=== PATIENT | female | born 1965 | race Two or more races ===

== ENCOUNTER 2020-08-22 10:59 | Outpatient (REF) | payer MEDICAID, SELFPAY | END 2020-08-22 11:00 | disposition home or self-care (01) | LOC: HO.LAB 10:59 | PROVIDERS: PCP Internal Medicine; Visit Provider Internal Medicine | DX: Z20.828 Contact with and (suspected) exposure to other viral communicable diseases (principal) | CPT/HCPCS: C9803; U0003 ==

== ENCOUNTER 2020-09-16 13:37 | Emergency (ER) | payer MEDICAID, SELFPAY ==
[2020-09-16 13:44] VITALS: BP 138/83; PULSE 73; RESP 16; TEMP 35.7; O2SAT 97; BMI 41.1
--- NOTE | 2020-09-16 14:06 | ED.DENTAL ---
HPI - Dental/Oral General Chief complaint: Dental/Oral Stated complaint: Dental pain Time Seen by Provider: 09/16/20 14:06 Source: patient History of Present Illness HPI Narrative: Patient complains of left lower molar pain for 3 days which is radiating to the left ear the pain is moderate, no prior treatment, no fever no chills no difficulty swallowing no swelling under the tongue Related Data Previous Rx's Medication Instructions Recorded amoxicillin 500 mg PO Q8H 7 Days #21 cap 09/16/20 ibuprofen 600 mg PO Q6H PRN #20 tab 09/16/20 oxycodone-acetaminophen [Percocet] 1 tab PO Q6H PRN #14 tab 09/16/20 Allergies Allergy/AdvReac Type Severity Reaction Status Date / Time penicillin V Allergy Unknown shortness Verified 01/18/20 00:00 of breath tuberculin, purified protein Allergy Unknown RED, RASH Unverified 06/22/20 16:44 deriva [TUBERCULIN,PURIF.PROT.DERIV.] Review of Systems Review of Systems: Positive for left dental pain and a left ear pain There is no fever no chills no dizziness no weakness no difficulty breathing or swallowing no rash Yes all other systems are reviewed and are negative PMFSH Past Medical History Source: nursing notes reviewed Medical History (Updated 09/16/20 @ 14:53 by NATHALIA Schaefer) Anemia Hypertension Social History Social History Advance Directives: No Advance Directives Information Provided: No Physical Exam Vital Signs: Vital Signs: Last Vital Signs Temp 96.2 F L 09/16/20 13:44 Pulse 73 09/16/20 13:44 Resp 16 09/16/20 13:44 BP 138/83 09/16/20 13:44 Pulse Ox 97 09/16/20 13:44 Body Mass Index 41.1 General appearance comfortable no distress A&O x3 The left ear is normal in appearance with no redness of tympanic membrane no narrowing of the canal no pain on movement of the ear, no sign of an ear infection The pharynx is clear no redness or swelling The left rear lower molar is decayed and tender to the touch, there is no fluctuant abscess of the gum there is no swelling under the tongue there is no impairment of breathing or swallowing there is no facial swelling there is no redness to the skin, voices normal Respiratory no distress skin no rash Neuro no focal deficit Course Course Course Narrative: Patient has no difficulty breathing or swallowing, computer said penicillin allergy but the patient denies any penicillin allergy and she is says she has had it before with no bad effect Discharge Plan Discharge Clinical Impression: Dental caries Patient Disposition: Home, Self-Care Additional Instructions: Follow as scheduled with her dentist in 2 weeks, you can call for an earlier appointment Return to ER any time if worse Prescriptions: New oxycodone-acetaminophen [Percocet] 5-325 mg tablet 1 tab PO Q6H PRN (Reason: pain) Qty: 14 RF: 0 ibuprofen 600 mg tablet 600 mg PO Q6H PRN (Reason: pain) Qty: 20 RF: 0 amoxicillin 500 mg capsule 500 mg PO Q8H 7 Days Qty: 21 RF: 0
[2020-09-16] MEDS: Amoxicillin 500 MG CAPSULE PO (14:54)
[2020-09-16] MEDS: Ibuprofen 600 MG TABLET PO (14:54)
== END 2020-09-16 15:13 | disposition home or self-care (01) ==
PROVIDERS: Emergency Provider Emergency Medicine; PCP Internal Medicine
DX: K02.9 Dental caries, unspecified (principal); I10 Essential (primary) hypertension
CPT/HCPCS: 99283

== ENCOUNTER → 2020-10-30 19:16 | Outpatient (REF) | payer MEDICAID, SELFPAY | LOC: HO.SL 19:16 | PROVIDERS: Visit Provider Psychiatry & Neurology Neurology | DX: G47.33 Obstructive sleep apnea (adult) (pediatric) (principal) | CPT/HCPCS: 95810 ==

== ENCOUNTER 2020-11-10 17:50 | Outpatient (REF) | payer MEDICAID, SELFPAY | END 2020-11-10 17:51 | disposition home or self-care (01) | LOC: HO.MRI 17:50 | PROVIDERS: Visit Provider Psychiatry & Neurology Neurology | DX: Z13.89 Encounter for screening for other disorder (principal) ==

== ENCOUNTER 2021-05-09 09:39 | Emergency (ER) | payer MEDICAID, SELFPAY ==
[2021-05-09 09:41] VITALS: BP 155/76; PULSE 68; RESP 16; TEMP 36.5; O2SAT 99; BMI 39.4
[2021-05-09 10:00] VITALS: BP 148/80; PULSE 65; RESP 18; O2SAT 100
[2021-05-09 10:21] LABS: Glucose Urine UA NEG (NEG); Leukocyte Esterase Urine 2+ (NEG); Nitrite Urine POS (NEG); PH 6.5 (5.0-8.0); Specific Gravity - Urine 1.015 (1.005-1.025); Urine Blood TRACE (NEG); Urine Ketones NEG (NEG); Urine Protein NEG (NEG-TRACE)
[2021-05-09 10:23] LABS: Appearance Urine HAZY; Color Urine YELLOW
--- NOTE | 2021-05-09 10:28 | ED.ABDPAIN ---
HPI - Abdominal Pain General Chief Complaint: Abdominal Pain Stated Complaint: lower abd pain Time Seen by Provider: 05/09/21 10:25 Source: patient Mode of arrival: ambulatory Limitations: no limitations History of Present Illness HPI narrative: 56 y/o female presents to the ER from home c/o 4 days of suprapubic pain and dysuria. She reports transient hematruia 3 days ago that has since resolved. She took over the counter cranberry supplements because she thought it was a UTI but her symptoms persisted. She is nauseated but has not vomited. No fever or chills. She has low back pain, slightly worse on the left. She is eating and drinking normally. MD elicited complaint: abdominal pain Pertinent past history: none Onset (ago): day(s) (4) Pain Consistency: constant Location: suprapubic Severity: severe Quality: aching, sharp and burning Radiation: back Migration to: no migration Exacerbating factors: other (urination) Relieving factors: nothing Associated symptoms: nausea Related Data Previous Rx's Medication Instructions Recorded amoxicillin 500 mg capsule 500 mg PO Q8H 7 Days #21 cap 09/16/20 ibuprofen 600 mg tablet 600 mg PO Q6H PRN #20 tab 09/16/20 oxycodone-acetaminophen 5 mg-325 1 tab PO Q6H PRN #14 tab 09/16/20 mg tablet (Percocet) levofloxacin 750 mg tablet 750 mg PO DAILY #5 tab 05/09/21 phenazopyridine 100 mg tablet 100 mg PO TID PRN #6 tab 05/09/21 (Pyridium) Allergies Allergy/AdvReac Type Severity Reaction Status Date / Time penicillin V Allergy Unknown shortness Verified 01/18/20 00:00 of breath tuberculin, purified protein Allergy Unknown RED, RASH Unverified 06/22/20 16:44 deriva [TUBERCULIN,PURIF.PROT.DERIV.] Review of Systems Review of Systems Constitutional: No Fever, No Chills ENT/Mouth: No sore throat, No Rhinorrhea, No Swallowing Difficulty Cardiovascular: No Chest Pain, No SOB, No Orthopnea, No Edema Respiratory: No Cough, No Sputum, No Wheezing, No dyspnea Gastrointestinal: + Nausea, No Vomiting, No Diarrhea, + abdominal Pain Genitourinary: + Dysuria, + Urinary Frequency, + Hematuria Musculoskeletal: No joint pain, No Myalgias Skin: No Skin Lesions, No rash Neuro: No Weakness, No Numbness, No Dizziness, No Headache Psych: No Anxiety/Panic, No Depression Heme/Lymph: No Bruising, No Lymphadenopathy Endocrine: No Polyuria, No Polydipsia Physical Exam Vital Signs: Vital Signs: Last Vital Signs Temp 97.7 F 05/09/21 09:41 Pulse 57 05/09/21 11:16 Resp 16 05/09/21 11:16 BP 114/53 L 05/09/21 11:16 Pulse Ox 100 05/09/21 11:16 Body Mass Index 39.4 Appearance: Alert. Oriented X3. No acute distress. Eyes: Pupils equal, round and reactive to light. ENT: Pharynx normal. Neck: Normal inspection. Neck supple. CVS: Normal heart rate and rhythm. Pulses normal. Respiratory: No respiratory distress. Breath sounds normal. Abdomen: Soft with suprapubic tenderness, no rebound or guarding. +BS x4 Skin: Skin warm and dry. Normal skin color. Normal skin turgor. No rashes. Extremities: No lower extremity edema. Neuro: Oriented X 3. No motor deficit. No sensory deficit. Course Course Course Narrative: 56 yo female presenting with 4 days of suprapubic pain, dysuria and back pain. UA is consistent with infection. Vitals are stable, no fever. Not septic at this time. Will get basic labs to check renal function. IV levaquin ordered (allergy to PCN). Reevaluation(s) Reevaluation #1: No leukocytosis on lab workup. Renal function is normal. She is not vomiting and afebrile. She is stable for discharge home with PO abx and outpatient follow up. Patient agrees with plan. MDM - Abdominal Pain Lab Data Result diagrams: 05/09/21 11:02 05/09/21 11:02 Labs: Lab Results 05/09/21 05/09/21 05/09/21 Range/Units 10:01 11:02 11:02 WBC 5.9 (4.8-10.8) X10*3/uL RBC 4.53 (4.20-5.50) X10*6/uL Hgb 12.6 (12.0-16.0) g/dl Hct 39.6 (37-47) % MCV 87.4 (80-98) fL MCH 27.8 (27.0-33.0) pg MCHC 31.8 (31.0-35.0) g/dl RDW 13.2 (11.0-16.0) % Plt Count 177 (160-400) X10*3/uL MPV 10.4 (9.4-12.3) fL Immature Gran % (Auto) 0.5 H (0.0-0.4) % Neut % (Auto) 63.6 (45-73) % Lymph % (Auto) 27.0 (20-40) % [place] % (Auto) 6.7 (2-11) % Eos % (Auto) 1.7 (0-4) % Baso % (Auto) 0.5 (0-2) % Lymph # (Auto) 1.6 (1.2-4.9) X10*3/uL [place] # (Auto) 0.4 (0.1-1.2) X10*3/uL Eos # (Auto) 0.1 (0.0-0.4) X10*3/uL Baso # (Auto) 0.0 (0.0-0.2) X10*3/uL Abs Immat Gran (auto) 0.03 (0.00-0.03) X10*3/uL Absolute Neuts (auto) 3.7 (2.0-8.3) X10*3/uL Absolute Nucleated RBC 0.000 (0.0-0.012) X10*3/uL Nucleated RBC % (auto) 0.0 (0.0-0.2) /100WBC Sodium 139 (135-145) mmol/L Potassium 4.0 (3.3-5.1) mmol/L Chloride 103 (96-108) mmol/L Carbon Dioxide 28 (22-29) mmol/L Anion Gap 12 (12-20) BUN 14 (9-16) mg/dL Creatinine 0.77 (0.5-1.4) mg/dL Estim Creat Clear Calc 97.1 Estimated GFR > 60 Random Glucose 200 H (60-115) mg/dL Calcium 9.1 (8.4-10.2) mg/dL Urine Color YELLOW Urine Appearance HAZY Urine pH 6.5 (5.0-8.0) Ur Specific [place] 1.015 (1.005-1.025) Urine Protein NEG (NEG-TRACE) MG/DL Urine Glucose (UA) NEG (NEG) MG/DL Urine Ketones NEG (NEG) MG/DL Urine Blood TRACE (NEG) Urine Nitrite POS H (NEG) Ur Leukocyte Esterase 2+ H (NEG) Urine RBC 1-4 (0) /HPF Urine WBC 50-75 H (0-4) /HPF Ur Squamous Epith Cells 3+ /LPF Urine Bacteria 2+ /LPF Discharge Plan Discharge Clinical Impression: UTI (urinary tract infection) Qualifiers: Urinary tract infection type: acute cystitis Hematuria presence: with hematuria Qualified Code(s): N30.01 - Acute cystitis with hematuria Patient Disposition: Home, Self-Care Instructions: Urinary Tract Infection in Women (ED) Additional Instructions: Take the prescribed antibiotic for urinary tract infection. Take 1st dose tomorrow morning, you were given a dose in the ER today. Drink plenty of fluids. Take Motrin and/or Tylenol as needed for pain. Take the prescribed medication as needed for bladder pain. This can turn your urine orange which is a normal side effect. Follow up with your doctor in 1 week. If you develop new or worsening symptoms call 911 or come back to the ER for further evaluation. Prescriptions: New levofloxacin 750 mg tablet 750 mg PO DAILY Qty: 5 RF: 0 phenazopyridine [Pyridium] 100 mg tablet 100 mg PO TID PRN (Reason: pain) Qty: 6 RF: 0 No Action oxycodone-acetaminophen [Percocet] 5-325 mg tablet 1 tab PO Q6H PRN (Reason: pain) Qty: 14 RF: 0 ibuprofen 600 mg tablet 600 mg PO Q6H PRN (Reason: pain) Qty: 20 RF: 0 amoxicillin 500 mg capsule 500 mg PO Q8H 7 Days Qty: 21 RF: 0 PMFSH Past Medical History Medical History (Updated 05/09/21 @ 11:26 by NATHALIA Moreno) Anemia Hypertension Social History Social History Advance Directives: Yes Advance Directives Information Provided: Yes Advance Directives on File: No Patient : No
[2021-05-09 10:30] LABS: Bacteria Urine 2+ /LPF; Squamous Epithelial Cell Urine 3+ /LPF; WBC Urine 50-75 /HPF (0-4)
[2021-05-09] MEDS: Acetaminophen 325 MG TABLET 650 MG PO (11:08)
[2021-05-09] MEDS: levoFLOXacin/D5W 750 MG/150 ML PIGGYBACK 100 MG IV (11:09)
[2021-05-09 11:10] LABS: MANUAL DIFF FLAG NO
[2021-05-09 11:12] LABS: Basophils Percent Auto 0.5 % (0-2); Eosinophils Absolute Auto 0.1 X10*3/uL (0.0-0.4); Eosinophils Percent Auto 1.7 % (0-4); Hematocrit 39.6 % (37-47); Hemoglobin 12.6 g/dl (12.0-16.0); Imm Gran Abs Auto 0.03 X10*3/uL (0.00-0.03); Imm Gran Pct Auto 0.5 % (0.0-0.4); Lymphocytes Absolute Auto 1.6 X10*3/uL (1.2-4.9); Mean Corpuscular HGB Conc 31.8 g/dl (31.0-35.0); Mean Corpuscular Hemoglobin 27.8 pg (27.0-33.0); Mean Corpuscular Volume 87.4 fL (80-98); Mean Platelet Volume 10.4 fL (9.4-12.3); Monocytes Absolute Auto 0.4 X10*3/uL (0.1-1.2); Monocytes Percent Auto 6.7 % (2-11); Neutrophils Absolute Auto 3.7 X10*3/uL (2.0-8.3); Neutrophils Percent Auto 63.6 % (45-73); Platelet Count 177 X10*3/uL (160-400); Red Blood Count 4.53 X10*6/uL (4.20-5.50); Red Cell Distribution Width 13.2 % (11.0-16.0); White Blood Count 5.9 X10*3/uL (4.8-10.8)
[2021-05-09 11:16] VITALS: BP 114/53; PULSE 57; RESP 16; O2SAT 100
[2021-05-09] MEDS: Phenazopyridine HCL 100 MG TABLET PO (11:18)
[2021-05-09 11:55] LABS: Anion Gap 12 (12-20); Blood Urea Nitrogen 14 mg/dL (9-16); Calcium 9.1 mg/dL (8.4-10.2); Carbon Dioxide 28 mmol/L (22-29); Chloride 103 mmol/L (96-108); Creatinine Clr Calc Pharmacy 97.1; Estimated Glomerular Filt Rate > 60; Glucose Random 200 mg/dL (60-115); Sodium 139 mmol/L (135-145)
[2021-05-09] MEDS: Ketorolac Tromethamine 15 MG/ML VIAL 30 MG IVPUSH (12:07)
== END 2021-05-09 12:51 | disposition home or self-care (01) ==
PROVIDERS: Physician Assistant; Emergency Provider Emergency Medicine; PCP Internal Medicine
DX: N30.01 Acute cystitis with hematuria (principal); I10 Essential (primary) hypertension
CPT/HCPCS: 36415; 80048; 81001; 85025; 96365; 96375; 99284; 99285; J1885; J1956; J2405

== ENCOUNTER 2021-06-03 10:38 | Emergency (ER) | payer MEDICAID, SELFPAY ==
--- NOTE | ~2021-06-03 | CT_ITS ---
EXAMINATION: CT ABDOMEN AND PELVIS WITHOUT CONTRAST CLINICAL INFORMATION: 56-year-old female with flank pain. COMPARISON: Bladder ultrasound January 13, [address] abdomen pelvis November 26, 2017 TECHNIQUE: Multidetector volumetric imaging was performed from the superior aspect of the liver through the pubic symphysis. Sagittal and coronal reformatted images were obtained on the technologist's workstation. This CT examination was performed using dose optimization techniques as appropriate, variously including the following: *Automated exposure control *Adjustment of mA and/or kV according to patient size (this includes techniques or standardized protocols for targeted exams where dose is matched to indication/reason for exam; i.e. extremities or head) *Use of iterative reconstruction technique DLP: 743 mGy-cm FINDINGS: Visualized lung bases are well aerated. The liver is normal in size but demonstrates diffusely decreased attenuation. The gallbladder is surgically absent. The pancreas, spleen and adrenal glands are unremarkable. Symmetrically sized kidneys. No renal calculi or hydronephrosis of either kidney. Normal caliber loops of small and large bowel. Normal caliber abdominal aorta. Duplicated IVC. No retroperitoneal lymphadenopathy. The bladder is normal in appearance. The uterus is surgically absent. No gross free pelvic fluid. Shot[place] bilateral inguinal lymph nodes and collateral vessels are unchanged. No acute osseous abnormality. CT/CT abdomen pelvis wo con IMPRESSION: -No CT evidence for acute abnormality within the abdomen or pelvis. Specifically, no renal calculi or hydronephrosis bilaterally. -Diffusely decreased liver attenuation suggesting hepatic steatosis. Correlation with liver enzymes recommended.
[2021-06-03 10:44] VITALS: BP 124/76; PULSE 66; RESP 20; TEMP 36.4; O2SAT 98; BMI 39.4
--- NOTE | 2021-06-03 11:19 | ED_ITS ---
HPI - Female Genitourinary General Chief complaint: Urogenital-Female Stated complaint: flank pain Time Seen by Provider: 06/03/21 11:17 Source: patient and private investigator surveillance Mode of arrival: ambulatory Limitations: language barrier History of Present Illness HPI Narrative: 56-year-old female here with complaints of bilateral lower back pain for several days. Of note patient was seen here on May 09 and diagnosed with UTI. Treated with Levaquin for 5 days. Patient reports she has pain in her back when she urinates. She does not have any dysuria or urinary frequency or hematuria. No fevers or chills. She has had several episodes of vomiting throughout the week at home. Done today. No diarrhea or constipation. Patient spoke to her primary care doctor last week and has an outpatient x-ray ordered of the back which she has not completed yet. No falls or injury. Using Motrin at home with continued pain Related Data Previous Rx's Medication Instructions Recorded amoxicillin 500 mg capsule 500 mg PO Q8H 7 Days #21 cap 09/16/20 ibuprofen 600 mg tablet 600 mg PO Q6H PRN #20 tab 09/16/20 oxycodone-acetaminophen 5 mg-325 1 tab PO Q6H PRN #14 tab 09/16/20 mg tablet (Percocet) levofloxacin 750 mg tablet 750 mg PO DAILY #5 tab 05/09/21 phenazopyridine 100 mg tablet 100 mg PO TID PRN #6 tab 05/09/21 (Pyridium) cyclobenzaprine 10 mg tablet 10 mg PO TID PRN #10 tab 06/03/21 lidocaine 5 % topical patch 1 patch TOPICAL DAILY #15 ea 06/03/21 (Lidoderm) naproxen 500 mg tablet 500 mg PO BID PRN #20 tab 06/03/21 Allergies Allergy/AdvReac Type Severity Reaction Status Date / Time penicillin V Allergy Unknown shortness Verified 01/18/20 00:00 of breath tuberculin, purified protein Allergy Unknown RED, RASH Unverified 06/22/20 16:44 deriva [TUBERCULIN,PURIF.PROT.DERIV.] Review of Systems Review of Systems: Yes all other systems are reviewed and are negative Constitutional: Constitutional: Reports no additional constitutional comp laints, Denies body ache(s), Denies chills, Denies fever(s), Denies headache(s) and Denies weakness Eyes: Eyes: Reports no additional eye complaints and Denies change in vision ENT: Reports system reviewed and no additional complaints, except as documented, Denies dizziness, Denies headache(s), Denies nasal congestion, Denies nasal discharge and Denies neck pain Cardiovascular: Cardiovascular: Reports no additional cardiovascular complaints, Denies chest pain, Denies leg edema and Denies dyspnea Respiratory: Respiratory: Reports no additional respiratory complaints, Denies cough and Denies dyspnea Gastrointestinal: Gastrointestinal: Reports no additional gastrointestinal complaints, Denies abdominal pain, Denies diarrhea, Denies nausea and Denies vomiting Genitourinary: Genitourinary: Reports no additional female genitourinary complaints, Denies hematuria, Reports dysuria, Reports flank pain, Denies urinary incontinence, Denies urinary hesitancy, Denies urinary urgency and Denies vaginal discharge Musculoskeletal: Musculoskeletal: Reports no additional musculoskeletal complaints, Reports back pain, Denies arthralgias, Denies joint swelling, Denies neck pain, Denies numbness and Denies tingling Integumentary/Breasts: Skin/Breast: Reports system reviewed and no additional complaints, except as docu and Denies rash Neurologic: Reports system reviewed and no additional complaints, except as documented, Denies Abnormal speech present, Denies dizziness, Denies headache(s), Denies numbness, Denies tingling and Denies weakness PMFSH Past Medical History Attestation statement: The following information was validated with the patient. Source: old records reviewed and nursing notes reviewed Medical History Anemia Hypertension Social History Social History Advance Directives: No Advance Directives Information Provided: No Physical Exam Vital Signs: Vital Signs: Last Vital Signs Temp 98 F 06/03/21 14:03 Pulse 58 06/03/21 14:03 Resp 15 06/03/21 14:03 BP 149/78 H 06/03/21 14:03 Pulse Ox 99 06/03/21 14:03 Body Mass Index 39.4 Const: General: cooperative, healthy appearing, comfortable and no acute distress Orientation/consciousness: patient oriented x3 Limitations: no limitations HENMT: Head: Yes normal to inspection Ears: hearing grossly normal bilaterally General nose exam: Normal external nose present Face and sinus: Yes normal facial exam Mouth: Normal oral and palatal mucosa present Throat: Yes posterior oropharynx normal Eyes: General: appearance normal, both eyes and all related structures Pupils: Equal, round and reactive pupils present Neck: Neck: Yes normal visual inspection Chest: Chest palpation & inspection: normal inspection of the chest Resp: Effort & Inspection: normal respiratory effort Auscultation: clear to auscultation bilaterally Cardio: Rate: regular rate Rhythm: regular rhythm Peripheral pulses: P eripheral pulses 2+ throughout GI: Inspection: Yes normal to inspection Palpation (GI): Soft to palpation and nontender Auscultation: normal bowel sounds : General: Yes CVA tenderness Back/Spine/Pelvis: Other: Bilateral Back: CVA tenderness Thoracic/Lumbar Spine: thoracic and lumbar spine normal to inspection Skin: General skin exam: no rashes or lesions noted Neuro: General: patient oriented x3, no focal motor deficits and normal sensation to monofilament Cranial nerves: Yes Equal, round and reactive pupils present Cognition (Neuro): normal cognition Speech: No Abnormal speech present Gait exam (Neuro): Normal gait present Motor exam (neuro): 5/5 motor strength present throughout Extrem: General: Yes normal to inspection Course Course Course Narrative: 56-year-old female here with flank pain which is worsened when she urinates for the last will days. Of note patient was recently treated Levaquin for UTI 2 weeks ago. She did complete the course. On exam is bilateral CVA tenderness. No fever. Hemodynamically stable. Will check labs, UA, CT. [id number] negative for infection. Labs unremarkable. Ct shows no acute finding. Likely lumbar strain. Will send patient home with supportive measures. Revi ewed worrisome signs and symptoms and when to return to the emergency department. Comfortable discharge home. MDM - Female Genitourinary Medical Records Attestation: I reviewed the patient's medical records. Lab Data Attestation: I reviewed the patient's lab results. Result diagrams: 06/03/21 12:25 06/03/21 12:25 Labs: Lab Results 06/03/21 06/03/21 06/03/21 Range/Units 11:28 12:25 12:25 WBC 5.1 (4.8-10.8) X10*3/uL RBC 4.59 (4.20-5.50) X10*6/uL Hgb 12.8 (12.0-16.0) g/dl Hct 40.7 (37-47) % MCV 88.7 (80-98) fL MCH 27.9 (27.0-33.0) pg MCHC 31.4 (31.0-35.0) g/dl RDW 13.2 (11.0-16.0) % Plt Count 158 L (160-400) X10*3/uL MPV 10.4 (9.4-12.3) fL Immature Gran % (Auto) 0.4 (0.0-0.4) % Neut % (Auto) 60.8 (45-73) % Lymph % (Auto) 29.9 (20-40) % [place] % (Auto) 6.9 (2-11) % Eos % (Auto) 1.6 (0-4) % Baso % (Auto) 0.4 (0-2) % Lymph # (Auto) 1.5 (1.2-4.9) X10*3/uL [place] # (Auto) 0.4 (0.1-1.2) X10*3/uL Eos # (Auto) 0.1 (0.0-0.4) X10*3/uL Baso # (Auto) 0.0 (0.0-0.2) X10*3/uL Abs Immat Gran (auto) 0.02 (0.00-0.03) X10*3/uL Absolute Neuts (auto) 3.1 (2.0-8.3) X10*3/uL Absolute Nucleated RBC 0.000 (0.0-0.012) X10*3/uL Nucleated RBC % (auto) 0.0 (0.0-0.2) /100WBC Sodium 141 (135-145) mmol/L Potassium 3.9 (3.3-5.1) mmol/L Chloride 103 (96-108) mmol/L Carbon Dioxide 31 H (22-29) mmol/L Anion Gap 11 L (12-20) BUN 14 (9-16) mg/dL Creatinine 0.85 (0.5-1.4) mg/dL Estim Creat Clear Calc 88.0 Estimated GFR > 60 Random Glucose 178 H (60-115) mg/dL Calcium 9.1 (8.4-10.2) mg/dL Total Bilirubin 0.3 (0.0-1.0) mg/dL Direct Bilirubin 0.2 (0.0-0.5) mg/dL AST 18 (5-31) U/L ALT 27 (0-31) U/L Alkaline Phosphatase 100 (39-117) U/L Total Protein 7.0 (6.5-8.0) g/dL Albumin 4.1 (3.5-5.0) g/dL Urine Color YELLOW Urine Appearance CLEAR Urine pH 6.0 (5.0-8.0) Ur Specific [place] 1.025 (1.005-1.025) Urine Protein NEG (NEG-TRACE) MG/DL Urine Glucose (UA) NEG (NEG) MG/DL Urine Ketones NEG (NEG) MG/DL Urine Blood TRACE (NEG) Urine Nitrite NEG (NEG) Ur Leukocyte Esterase NEG (NEG) Urine RBC 0-2 (0) /HPF Urine WBC 0-2 (0-4) /HPF Ur Squamous Epith Cells TRACE /LPF Urine Bacteria TRACE /LPF Urine Mucus TRACE /LPF Imaging Data CT scan - abdomen: Attestation: I personally reviewed and interpreted this imaging study as follows: Radiologist's impression: FINDINGS: Visualized lung bases are well aerated. The liver is normal in size but demonstrates diffusely decreased attenuation. The gallbladder is surgically absent. The pancreas, spleen and adrenal glands are unremarkable. Symmetrically sized kidneys. No renal calculi or hydronephrosis of either kidney. Normal caliber loops of small and large bowel. Normal caliber abdominal aorta. Duplicated IVC. No retroperitoneal lymphadenopathy. The bladder is normal in appearance. The uterus is surgically absent. No gross free pelvic fluid. Shotty bilateral inguinal lymph nodes and collateral vessels are unchanged. No acute osseous abnormality. CT/CT abdomen pelvis wo con IMPRESSION: -No CT evidence for acute abnormality within the abdomen or pelvis. Specifically, no renal calculi or hydronephrosis bilaterally. -Diffusely decreased liver attenuation suggesting hepatic steatosis. Correlation with liver enzymes recommended. Discharge Plan Discharge Clinical Impression: Lumbar strain Patient Disposition: Home, Self-Care Instructions: Low Back Strain (ED), Lower Back Exercises (ED), Core Strengthening Exercises (ED) Additional Instructions: Heat or ice Gentle stretching Your imaging looks normal. Your labs and urine are negative Follow-up with your primary care doctor as needed Increase fluids, rest No heavy lifting or bending Prescriptions: New cyclobenzaprine 10 mg tablet 10 mg PO TID PRN (Reason: muscle spasm) Qty: 10 RF: 0 lidocaine [Lidoderm] 5 % adhesive patch,medicated 1 patch topical DAILY Qty: 15 RF: 0 naproxen 500 mg tablet 500 mg PO BID PRN (Reason: pain) Qty: 20 RF: 0 No Action oxycodone-acetaminophen [Percocet] 5-325 mg tablet 1 tab PO Q6H PRN (Reason: pain) Qty: 14 RF: 0 ibuprofen 600 mg tablet 600 mg PO Q6H PRN (Reason: pain) Qty: 20 RF: 0 amoxicillin 500 mg capsule 500 mg PO Q8H 7 Days Qty: 21 RF: 0 levofloxacin 750 mg tablet 750 mg PO DAILY Qty: 5 RF: 0 phenazopyridine [Pyridium] 100 mg tablet 100 mg PO TID PRN (Reason: pain) Qty: 6 RF: 0 Referrals: Choco Shaikh MD [Primary Care Provider] - 2 days Interventions: ED Discharge Assessment Last Done: 06/03/21 14:18 Discharge Date/Time: 06/03/21 14:19 Print Language: Algerian
[2021-06-03 11:38] LABS: Glucose Urine UA NEG (NEG); Leukocyte Esterase Urine NEG (NEG); Nitrite Urine NEG (NEG); Specific Gravity - Urine 1.025 (1.005-1.025); UACC Culture Trigger NO; Urine Blood TRACE (NEG); Urine Ketones NEG (NEG); Urine Protein NEG (NEG-TRACE)
[2021-06-03 11:58] LABS: Appearance Urine CLEAR; Color Urine YELLOW
[2021-06-03 12:02] LABS: Bacteria Urine TRACE /LPF; Mucus Urine TRACE /LPF; RBC Urine 0-2 /HPF (0); Squamous Epithelial Cell Urine TRACE /LPF; WBC Urine 0-2 /HPF (0-4)
[2021-06-03 12:31] LABS: MANUAL DIFF FLAG NO
[2021-06-03 12:32] LABS: Basophils Percent Auto 0.4 % (0-2); Eosinophils Absolute Auto 0.1 X10*3/uL (0.0-0.4); Eosinophils Percent Auto 1.6 % (0-4); Hematocrit 40.7 % (37-47); Hemoglobin 12.8 g/dl (12.0-16.0); Imm Gran Abs Auto 0.02 X10*3/uL (0.00-0.03); Imm Gran Pct Auto 0.4 % (0.0-0.4); Lymphocytes Absolute Auto 1.5 X10*3/uL (1.2-4.9); Lymphocytes Percent Auto 29.9 % (20-40); Mean Corpuscular HGB Conc 31.4 g/dl (31.0-35.0); Mean Corpuscular Hemoglobin 27.9 pg (27.0-33.0); Mean Corpuscular Volume 88.7 fL (80-98); Mean Platelet Volume 10.4 fL (9.4-12.3); Monocytes Absolute Auto 0.4 X10*3/uL (0.1-1.2); Monocytes Percent Auto 6.9 % (2-11); Neutrophils Absolute Auto 3.1 X10*3/uL (2.0-8.3); Neutrophils Percent Auto 60.8 % (45-73); Platelet Count 158 X10*3/uL (160-400); Red Blood Count 4.59 X10*6/uL (4.20-5.50); Red Cell Distribution Width 13.2 % (11.0-16.0); White Blood Count 5.1 X10*3/uL (4.8-10.8)
[2021-06-03 12:58] LABS: Alanine Aminotransferase 27 U/L (0-31); Albumin Level 4.1 g/dL (3.5-5.0); Alkaline Phosphatase 100 U/L (39-117); Anion Gap 11 (12-20); Aspartate Amino Transferase 18 U/L (5-31); Bilirubin Direct 0.2 mg/dL (0.0-0.5); Bilirubin Total 0.3 mg/dL (0.0-1.0); Blood Urea Nitrogen 14 mg/dL (9-16); Calcium 9.1 mg/dL (8.4-10.2); Carbon Dioxide 31 mmol/L (22-29); Chloride 103 mmol/L (96-108); Estimated Glomerular Filt Rate > 60; Glucose Random 178 mg/dL (60-115); Potassium 3.9 mmol/L (3.3-5.1); Sodium 141 mmol/L (135-145)
[2021-06-03 14:03] VITALS: BP 149/78; PULSE 58; RESP 15; TEMP 36.6; O2SAT 99
== END 2021-06-03 14:19 | disposition home or self-care (01) ==
PROVIDERS: Nurse Practitioner Family; Emergency Provider Emergency Medicine; PCP Internal Medicine
DX: M54.5 Low back pain (principal); R10.9 Unspecified abdominal pain; R11.10 Vomiting, unspecified; Z79.899 Other long term (current) drug therapy
CPT/HCPCS: 36415; 74176; 80048; 80076; 81001; 85025; 99284

== ENCOUNTER 2021-09-20 20:57 | Emergency (ER) | payer MEDICAID, SELFPAY ==
[2021-09-20 21:12] VITALS: BP 155/80; PULSE 65; RESP 18; TEMP 36.7; O2SAT 100; BMI 39.4
[2021-09-20 21:43] LABS: COVID-19 Test Positive (Negative); IDNOW Serial# 16C4AD1C
[2021-09-21 02:24] VITALS: BP 174/89; PULSE 69; RESP 16; TEMP 36.8; O2SAT 100
[2021-09-21 04:25] VITALS: BP 154/93; PULSE 66; RESP 14; TEMP 36.7; O2SAT 100
--- NOTE | 2021-09-21 05:34 | ED_ITS ---
HPI - URI/Sore Throat General Chief Complaint: Upper Respiratory Symptoms Stated Complaint: cough,fever Time Seen by Provider: 09/21/21 05:13 Source: patient Mode of arrival: ambulatory Limitations: no limitations History of Present Illness HPI Narrative: 56-year-old female who presents emergency department for evaluation of cough, fever, chest pain, body aches, headache and shortness of breath. Patient states that 2 students on Friday and 2 students on Friday (2 days prior to evaluation) tested positive for COVID-19. She states that a co- worker tested positive for COVID-19 yesterday. She states that on the day of arrival she developed cough, body aches, headaches, chest tightness and diarrhea. She denied shortness of breath or dyspnea on exertion. She states that she has had subjective fevers. She was concerned that she had COVID-19 therefore she came to the emergency department for evaluation. The patient received 2 shots of the Moderna vaccine with her 2nd vaccination on 12/21/2020. She did not receive a booster vaccination. Related Data Previous Rx's Medication Instructions Recorded amoxicillin 500 mg capsule 500 mg PO Q8H 7 Days #21 cap 09/16/20 ibuprofen 600 mg tablet 600 mg PO Q6H PRN #20 tab 09/16/20 oxycodone-acetaminophen 5 mg-325 1 tab PO Q6H PRN #14 tab 09/16/20 mg tablet (Percocet) levofloxacin 750 mg tablet 750 mg PO DAILY #5 tab 05/09/21 phenazopyridine 100 mg tablet 100 mg PO TID PRN #6 tab 05/09/21 (Pyridium) cyclobenzaprine 10 mg tablet 10 mg PO TID PRN #10 tab 06/03/21 lidocaine 5 % topical patch 1 patch TOPICAL DAILY #15 ea 06/03/21 (Lidoderm) naproxen 500 mg tablet 500 mg PO BID PRN #20 tab 06/03/21 Allergies Allergy/AdvReac Type Severity Reaction Status Date / Time penicillin V Allergy Unknown shortness Verified 09/21/21 02:49 of breath tuberculin, purified protein Allergy Unknown RED, RASH Verified 09/21/21 02:49 deriva [TUBERCULIN,PURIF.PROT.DERIV.] Review of Systems Review of Systems: Yes all other systems are reviewed and are negative Neurologic: Reports Abnormal speech present [facility] Past Medical History [facility] Narrative: Past medical history: Diabetes mellitus, hypertension, fast heart rate. Past surgical history: Hysterectomy. 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 She denies tobacco, alcohol and drug use. Medical History Anemia Hypertension Social History Social History Advance Directives: No Advance Directives Information Provided: No Physical Exam Vital Signs: Vital Signs: Last Vital Signs Temp 98.1 F 09/21/21 04:25 Pulse 66 09/21/21 04:25 Resp 14 09/21/21 04:25 BP 154/93 H 09/21/21 04:25 Pulse Ox 100 09/21/21 04:25 BMI result Body Mass Index 39.4 Const: General: cooperative, no acute distress, well developed, alert and awake Orientation/consciousness: oriented to person HENMT: Head: Yes normal to inspection, Yes normocephalic and Yes atraumatic Ears: hearing grossly normal bilaterally General nose exam: Normal external nose present Face and sinus: Yes normal facial exam Mouth: Normal oral and palatal mucosa present, lip normal, tongue normal, oropharynx normal and moist mucous membranes Throat: Yes posterior oropharynx normal, Yes tonsils normal and Yes uvula midline Eyes: General: appearance normal, both eyes and all related structures Eyelids: Yes eyelids normal Conjunctivae: conjunctivae normal Sclerae: scl erae normal Corneas: corneas normal Pupils: Equal, round and reactive pupils present Neck: Neck: Yes normal visual inspection, Yes no lymphadenopathy, Yes trachea midline and Yes supple Thyroid: Thyroid normal Lymphatic: no lymphadenopathy noted Chest: Chest palpation & inspection: normal inspection of the chest and normal palpation of entire chest wall Resp: Effort & Inspection: normal respiratory effort and able to speak in complete sentences Auscultation: clear to auscultation bilaterally Cardio: Rate: regular rate Rhythm: regular rhythm Heart sounds: S1 normal heart sound present, S2 normal heart sound present and no murmurs GI: Inspection: Yes normal to inspection Palpation (GI): Soft to palpation, nontender and No hepatosplenomegaly present Auscultation: normal bowel sounds : General: Yes no CVA tenderness Back/Spine/Pelvis: Back: no CVA tenderness Thoracic/Lumbar Spine: thoracic and lumbar spine normal to inspection Skin: General skin exam: no rashes or lesions noted, no erythema and no jaundice Lesions: no lesions Rashes: no rashes Trauma: no lacerations or abrasions Wounds: no wounds Neuro: General: oriented to person, moves all extremities and no focal motor deficits Cranial nerves: Yes Equal, round and reactive pupils present Cognition (Neuro): normal cognition Speech: Abnormal speech present Motor exam (neuro): Motor abnormalities not present Extrem: General: Yes normal to inspection, Yes no pedal edema and Yes no calf tenderness Right upper extremity: normal to inspection Left upper extremity: normal to inspection Right lower extremity: normal to inspection Left lower extremity: normal to inspection Psych: Appearance: grossly normal Mental Status: mental status grossly normal Speech and movement: Normal speech and movement present Affect: normal affect Attitude: cooperative Thought process: Normal thought process present Insight: Good insight present (Psych) Course Course Course Narrative: 56-year-old female who had multiple exposures to COVID 19 positive individuals at her workplace over the past 2-3 days who presents emergency department with 1 day upper respiratory viral-like symptoms. The patient's vital signs revealed elevated blood pressure of 155/80 with an O2 saturation of 100% on room air. Physical examination was unremarkable. Patient's COVID-19 test was positive. I did discuss COVID-19 infection with the patient. The patient has multiple comorbid conditions such as obesity, diabetes and hypertension which may cared increased risk for morbidity and mortality therefore she was referred to the [facility] infusion clinic for treatment with monoclonal antibodies. I did discuss COVID-19 infections, pneumonia and isolation with the patient . The patient was given printed and verbal instructions and discharged home. MDM - URI/Sore Throat Lab Data Labs: Lab Results 09/20/21 Range/Units 21:00 COVID-19 (NATHAN) Positive A (Negative) COVID-19 Clin Com See Note Discharge Plan Discharge Clinical Impression: COVID-19 Patient Disposition: Home, Self-Care Instructions: COVID-19 (Coronavirus Disease 2019) (ED) Additional Instructions: Your COVID-19 test is positive Your O2 saturation on room air was 100%. This is reassuring. We do not hospitalize people for COVID-19 and unless you developed pneumonia and your O2 saturation is less than 88% on room air. You may benefit from monoclonal antibody infusion treatment. I am referring you to the [facility] mobile infusion clinic. I emailed the form to the clinic. You should call them today to make an appointment within 1-4 days to get the infusion therapy. You need to stay home and isolate for 14 days. You should go to the [facility] website and look up information on staying home and isolating from your family members. Take ibuprofen 200 mg pills, 3 pills every 6 hours as needed for pain or fever Take Tylenol (acetaminophen) 500 mg pills, 2 pills every 4 to 6 hours as needed for pain or fever. Please return to the emergency department if you develops symptoms of pneumonia or if your symptoms are getting worse and your concerned in any way. Please see the work note. Prescriptions: No Action oxycodone-acetaminophen [Percocet] 5-325 mg tablet 1 tab PO Q6H PRN (Reason: pain) Qty: 14 RF: 0 ibuprofen 600 mg tablet 600 mg PO Q6H PRN (Reason: pain) Qty: 20 RF: 0 amoxicillin 500 mg capsule 500 mg PO Q8H 7 Days Qty: 21 RF: 0 levofloxacin 750 mg tablet 750 mg PO DAILY Qty: 5 RF: 0 phenazopyridine [Pyridium] 100 mg tablet 100 mg PO TID PRN (Reason: pain) Qty: 6 RF: 0 cyclobenzaprine 10 mg tablet 10 mg PO TID PRN (Reason: muscle spasm) Qty: 10 RF: 0 lidocaine [Lidoderm] 5 % adhesive patch,medicated 1 patch topical DAILY Qty: 15 RF: 0 naproxen 500 mg tablet 500 mg PO BID PRN (Reason: pain) Qty: 20 RF: 0 Stand Alone Forms: Work/School Release
[2021-09-21 05:43] VITALS: BP 170/94; PULSE 77; RESP 18; TEMP 37; O2SAT 100
== END 2021-09-21 05:54 | disposition home or self-care (01) ==
PROVIDERS: Emergency Provider Emergency Medicine Emergency Medical Services
DX: U07.1 COVID-19 (principal); R50.9 Fever, unspecified; R05.9 Cough, unspecified; M79.10 Myalgia, unspecified site; Z79.899 Other long term (current) drug therapy
CPT/HCPCS: 36415; 87635; 99283; 99284

== ENCOUNTER 2021-10-01 12:00 | Outpatient (REF) | payer MEDICAID, SELFPAY | END 2021-10-01 12:01 | disposition home or self-care (01) | LOC: HO.LAB 12:00 | PROVIDERS: Visit Provider Internal Medicine | DX: Z20.822 Contact with and (suspected) exposure to COVID-19 (principal) | CPT/HCPCS: C9803; U0003; U0005 ==

== ENCOUNTER 2021-12-16 10:47 | Emergency (ER) | payer MEDICAID, SELFPAY ==
--- NOTE | ~2021-12-16 | XR_ITS ---
EXAMINATION: XR CHEST CLINICAL INFORMATION: Cough. COMPARISON: Chest radiograph 05/03/2019. TECHNIQUE: Frontal view of the chest was obtained. FINDINGS: Normal appearance of the cardiomediastinal structures. No effusions or pneumothoraces. No pulmonary consolidation is normal pattern of pulmonary vasculature. Cholecystectomy clips noted. XR/XR chest 1V IMPRESSION: *No acute cardiopulmonary abnormalities. Lungs clear.
[2021-12-16 10:57] VITALS: BP 152/61; PULSE 77; RESP 18; TEMP 36.6; O2SAT 99; BMI 41.1
[2021-12-16 11:44] LABS: Influenza A Negative (Negative); Influenza B2 Negative (Negative)
[2021-12-16 11:44] LABS: COVID-19 Test Negative (Negative); IDNOW Serial# 16C4AD1C
--- NOTE | 2021-12-16 11:59 | ED.URI ---
HPI - URI/Sore Throat General Chief Complaint: Upper Respiratory Symptoms Stated Complaint: body aches/flu like symptoms Time Seen by Provider: 12/16/21 11:03 Source: patient Mode of arrival: ambulatory History of Present Illness HPI Narrative: 56-year-old female with a past medical history of anemia, hypertension, presenting to the ED complaining of fever, dry cough, ear pain, sore throat, myalgias x5 days. Denies SOB, CP, abdominal pain, pedal edema/calf tenderness, known sick contacts, recent travel MD elicited complaint: fever, cough, sore throat, rhinorrhea and nasal congestion Onset (ago): day(s) Related Data Previous Rx's Medication Instructions Recorded amoxicillin 500 mg capsule 500 mg PO Q8H 7 Days #21 cap 09/16/20 ibuprofen 600 mg tablet 600 mg PO Q6H PRN #20 tab 09/16/20 oxycodone-acetaminophen 5 mg-325 1 tab PO Q6H PRN #14 tab 09/16/20 mg tablet (Percocet) levofloxacin 750 mg tablet 750 mg PO DAILY #5 tab 05/09/21 phenazopyridine 100 mg tablet 100 mg PO TID PRN #6 tab 05/09/21 (Pyridium) cyclobenzaprine 10 mg tablet 10 mg PO TID PRN #10 tab 06/03/21 lidocaine 5 % topical patch 1 patch TOPICAL DAILY #15 ea 06/03/21 (Lidoderm) naproxen 500 mg tablet 500 mg PO BID PRN #20 tab 06/03/21 Allergies Allergy/AdvReac Type Severity Reaction Status Date / Time penicillin V Allergy Unknown shortness Verified 09/21/21 02:49 of breath tuberculin, purified protein Allergy Unknown RED, RASH Verified 09/21/21 02:49 deriva [TUBERCULIN,PURIF.PROT.DERIV.] Review of Systems Review of Systems: Constitutional: + Fever, No Chills ENT/Mouth: + Ear Pain, + Nasal Congestion, No Sinus Pain, No Hoarseness, + sore throat, + Rhinorrhea, No Swallowing Difficulty Cardiovascular: No Chest Pain, No SOB Respiratory: + Cough, No Sputum, No Wheezing Gastrointestinal: No Nausea, No Vomiting, No Abdominal pain Genitourinary:, No Dysuria, No Hematuria, No Urgency, No Flank Pain Musculoskeletal: No joint pain, No Myalgias Skin: No Skin Lesions, No rash Neuro: No Weakness, No Numbness Yes all other systems are reviewed and are negative [facility] Past Medical History Attestation statement: The following information was validated with the patient. Medical History Anemia Hypertension Social History Social History Advance Directives: No Physical Exam Vital Signs: Vital Signs: Last Vital Signs Temp 97.9 F 12/16/21 10:57 Pulse 77 12/16/21 10:57 Resp 18 12/16/21 10:57 BP 152/61 H 12/16/21 10:57 Pulse Ox 99 12/16/21 10:57 BMI result Body Mass Index 41.1 Const: General: cooperative, healthy appearing, no acute distress, alert and awake Orientation/consciousness: patient oriented x3 Limitations: no limitations HENMT: Head: Yes normal to inspection and Yes atraumatic Ears: hearing grossly normal bilaterally, external ears normal, TM's normal bilaterally and mastoids normal General nose exam: Normal external nose present Face and sinus: Yes normal facial exam Mouth: Normal oral and palatal mucosa present Throat: Yes posterior oropharynx normal, Yes tonsils normal, Yes uvula midline, No peritonsillar mass and No uvula laterally displaced Eyes: General: appearance normal, both eyes and all related structures EOM: EOMs intact bilaterally Neck: Neck: Yes normal visual inspection, Yes no lymphadenopathy and Yes no meningeal signs Resp: Effort & Inspection: normal respiratory effort and no respiratory distress Auscultation: clear to auscultation bilaterally, no rales, no rhonchi and no wheezes Cardio: Rate: regular rate Heart sounds: S1 normal heart sound present and S2 normal heart sound present : General: Yes no CVA tenderness Back/Spine/Pelvis: Back: no CVA tenderness Skin: Rashes: no rashes Wounds: no wounds Neuro: General: patient oriented x3 and no meningeal signs Gait exam (Neuro): Normal gait present Extrem: General: Yes normal to inspection, Yes no pedal edema and Yes no calf tenderness Course Course Course Narrative: -influenza and COVID-19 negative. 1212--XR chest 1V IMPRESSION: *No acute cardiopulmonary abnormalities. Lungs clear. ? > results discussed with patient including worrisome signs and symptoms and strict return precautions and needed close follow-up with PCP MDM - URI/Sore Throat MDM Narrative Medical decision making narrative: 56-year-old female with a past medical history of anemia, hypertension, presenting to the ED complaining of fever, dry cough, ear pain, sore throat, myalgias x5 days. On exam vital signs stable, NAD/nontoxic appearing, concern for viral syndrome/COVID-19/influenza. Lower concern for pneumonia. Unlikely ACS/PE Plan: COVID-19 testing, influenza testing, CXR Medical Records Attestation: I reviewed the patient's medical records. Lab Data Attestation: I reviewed the patient's lab results. Labs: Lab Results 12/16/21 12/16/21 Range/Units 11:17 11:18 COVID-19 (NATHAN) Negative (Negative) COVID-19 Clin Com See Note Influenza Type A (DEEPA) Negative (Negative) Influenza Type B (DEEPA) Negative (Negative) Influenza A & B Note See Note Discharge Plan Discharge Clinical Impression: Upper respiratory infection Patient Disposition: Home, Self-Care Instructions: Upper Respiratory Infection (DC) Additional Instructions: You tested negative for COVID-19 and the flu your chest x-ray was unremarkable Rest, stay hydrated Take Tylenol and Motrin as needed If symptoms persist or worsen, he developed fever unresolved medications have shortness of breath or chest pain please return to the emergency department Please follow-up with your doctor Prescriptions: No Action oxycodone-acetaminophen [Percocet] 5-325 mg tablet 1 tab PO Q6H PRN (Reason: pain) Qty: 14 0RF Rx Instructions: Narcotic, no driving for 6 hours after taking this medication, may cause drowsiness ibuprofen 600 mg tablet 600 mg PO Q6H PRN (Reason: pain) Qty: 20 0RF amoxicillin 500 mg capsule 500 mg PO Q8H 7 Days Qty: 21 0RF levofloxacin 750 mg tablet 750 mg PO DAILY Qty: 5 0RF phenazopyridine [Pyridium] 100 mg tablet 100 mg PO TID PRN (Reason: pain) Qty: 6 0RF cyclobenzaprine 10 mg tablet 10 mg PO TID PRN (Reason: muscle spasm) Qty: 10 0RF lidocaine [Lidoderm] 5 % adhesive patch,medicated 1 patch topical DAILY Qty: 15 0RF Rx Instructions: leave on most painful area for up to 12 hrs naproxen 500 mg tablet 500 mg PO BID PRN (Reason: pain) Qty: 20 0RF Referrals: Choco Shaikh MD [Primary Care Provider] - 3 days
== END 2021-12-16 12:30 | disposition home or self-care (01) ==
PROVIDERS: Physician Assistant; Emergency Provider Emergency Medicine; PCP Internal Medicine
DX: J06.9 Acute upper respiratory infection, unspecified (principal); M79.10 Myalgia, unspecified site; I10 Essential (primary) hypertension; R50.9 Fever, unspecified; Z20.822 Contact with and (suspected) exposure to COVID-19; Z79.899 Other long term (current) drug therapy
CPT/HCPCS: 71045; 87502; 87635; 99283

== ENCOUNTER 2022-06-19 08:01 | Outpatient (REF) | payer MEDICAID, SELFPAY ==
--- NOTE | ~2022-06-19 | MM_ITS ---
EXAMINATION: MM SCREENING DIGITAL BREAST TOMOSYNTHESIS, BILATERAL CLINICAL INFORMATION: Screening. Asymptomatic. The lifetime risk of breast cancer based on the Tyrer-Cuzick Model is 7%. COMPARISON: Mammography: 09/03/2016, 09/18/2012 (new baseline). TECHNIQUE: Digital breast tomosynthesis is performed in both the craniocaudal and mediolateral oblique views along with computer-aided detection (CAD). Synthesized 2D images are generated from the tomosynthesis. Additional right MLO view is provided. FINDINGS: There are scattered areas of fibroglandular density (ACR BI-RADS breast composition Category b). There are no significant masses, abnormal calcifications, or other abnormalities. Parenchymal pattern is similar to prior exams. The axilla and skin contours are unremarkable. MM/MM tomosynthesis screening BI IMPRESSION: No mammographic evidence of malignancy. ASSESSMENT: BI-RADS 1: Negative RECOMMENDATION: Routine annual mammography screening. This patient's information was entered into a reminder system with a target due date for their next mammogram.
== END 2022-06-19 08:02 | disposition home or self-care (01) ==
LOC: HO.MAMMO 08:01
PROVIDERS: Visit Provider Internal Medicine
DX: Z12.31 Encounter for screening mammogram for malignant neoplasm of breast (principal)
CPT/HCPCS: 77063; 77067

== ENCOUNTER → 2022-07-02 13:03 | Outpatient (BNVA) | payer MEDICAID, SELFPAY | PROVIDERS: PCP Internal Medicine; Visit Provider Nurse Practitioner Family | DX: K21.9 Gastro-esophageal reflux disease without esophagitis (principal); R10.84 Generalized abdominal pain; K59.04 Chronic idiopathic constipation; K64.9 Unspecified hemorrhoids | CPT/HCPCS: 99202 ==

== ENCOUNTER 2022-07-05 08:08 | Outpatient (REF) | payer MEDICAID, SELFPAY ==
[2022-07-05 09:31] LABS: Alanine Aminotransferase 24 U/L (0-31); Albumin Level 4.4 g/dL (3.5-5.0); Alkaline Phosphatase 128 U/L (39-117); Aspartate Amino Transferase 15 U/L (5-31); Bilirubin Direct 0.3 mg/dL (0.0-0.5); Bilirubin Total 0.4 mg/dL (0.0-1.0); Lipase 17 U/L (8-78); Total Protein 7.3 g/dL (6.5-8.0)
[2022-07-05 09:51] LABS: TSH reflex Free T4 9.57 uIU/mL (0.32-4.0)
[2022-07-05 10:45] LABS: Free T4 (Free Thyroxine) 0.95 ng/dL (0.71-1.85)
[2022-07-10 08:47] LABS: Transglutaminase Ab IgG <1.0 U/mL; Transglutaminase IgA <1.0 U/mL
== END 2022-07-05 08:09 | disposition home or self-care (01) ==
LOC: HO.LAB 08:08
PROVIDERS: PCP Internal Medicine; Visit Provider Nurse Practitioner Family
DX: Z12.11 Encounter for screening for malignant neoplasm of colon (principal); R10.9 Unspecified abdominal pain
CPT/HCPCS: 36415; 80076; 83690; 84439; 84443; 86364

== ENCOUNTER 2022-07-11 11:55 | Outpatient (REF) | payer MEDICAID, SELFPAY | END 2022-07-11 11:56 | disposition home or self-care (01) | LOC: HO.LNP 11:55 | PROVIDERS: Visit Provider Nurse Practitioner Family | DX: K21.9 Gastro-esophageal reflux disease without esophagitis (principal) | CPT/HCPCS: 87338 ==

== ENCOUNTER 2022-08-22 07:48 | Outpatient (REF) | payer MEDICAID, SELFPAY ==
--- NOTE | ~2022-08-22 | US_ITS ---
EXAMINATION: US ABDOMEN COMPLETE CLINICAL INFORMATION: Unspecified abdominal pain. COMPARISON: CT abdomen and pelvis 06/03/2021. Ultrasound abdomen 12/23/2012. TECHNIQUE: Real-time imaging of the abdominal viscera. FINDINGS: PANCREAS: Not well visualized due to bowel gas. ABDOMINAL AORTA: The proximal, mid, and distal segments are normal in caliber. INFERIOR VENA CAVA: Visualized portions are normal. LIVER: The liver is normal in size. The liver contour is normal. Liver echotexture is increased suggestive of fatty infiltration. No focal hepatic lesion. There is no intrahepatic biliary duct dilatation seen. GALLBLADDER: Surgically absent. COMMON BILE DUCT: Normal in caliber measuring 0.7 cm in diameter. RIGHT KIDNEY: Normal. No hydronephrosis. No renal calculi or focal parenchymal lesions. The kidney measures 11.6 cm in maximum dimension. LEFT KIDNEY: Normal. No hydronephrosis. No renal calculi or focal parenchymal lesions. The kidney measures 11.3 cm in maximum dimension. SPLEEN: The spleen is slightly enlarged. The spleen measures 13.7 cm in maximum dimension. FREE FLUID: None. US/US abdomen complete IMPRESSION: Echogenic liver suggestive of fatty infiltration. Slightly enlarged spleen.
== END 2022-08-22 07:49 | disposition home or self-care (01) ==
LOC: HO.US 07:48
PROVIDERS: Visit Provider Nurse Practitioner Family
DX: R10.9 Unspecified abdominal pain (principal)
CPT/HCPCS: 76700

== ENCOUNTER 2022-10-21 12:13 | Emergency (ER) | payer MEDICAID, SELFPAY ==
--- NOTE | ~2022-10-21 | CT_ITS ---
EXAMINATION: CT ABDOMEN AND PELVIS WITHOUT CONTRAST CLINICAL INFORMATION: lower abdominal pain. colitis? kidney stone? COMPARISON: CT 06/03/2021. Ultrasound 08/12/2022 2 TECHNIQUE: Multidetector volumetric imaging was performed from the lung bases through the pubic symphysis. Sagittal and coronal reformatted images were obtained on the technologist workstation. This CT examination was performed using dose optimization techniques as appropriate, variously including the following: *Automated exposure control *Adjustment of mA and/or kV according to patient size (this includes techniques or standardized protocols for targeted exams where dose is matched to indication/reason for exam; i.e. extremities or head) *Use of iterative reconstruction technique FINDINGS: The lack of intravenous contrast limits evaluation of the solid visceral organs including the liver, spleen, pancreas, and kidneys. LUNG BASES: The visualized lung bases are unremarkable. LIVER, GALLBLADDER, AND BILIARY TREE: Liver is diffusely hypoattenuating consistent with diffuse hepatic steatosis. No focal liver lesion seen. Status post cholecystectomy. PANCREAS: Limited non-contrast evaluation is normal. No melony-pancreatic fluid. SPLEEN: Limited non-contrast evaluation is normal. ADRENAL GLANDS: Normal; no adrenal mass. KIDNEYS AND URETERS: Limited non-contrast evaluation is normal. No hydronephrosis, hydroureter, or calculi seen. No perinephric stranding. GASTROINTESTINAL TRACT: Small bowel and colon are non-dilated. No bowel wall thickening. No pericolonic inflammatory changes to suggest colitis or diverticulitis. ABDOMINAL WALL: Healed midline laparotomy changes. LYMPH NODES: No pathologically enlarged lymph nodes in the abdomen or pelvis. VASCULAR: Normal caliber abdominal aorta. BLADDER: Unremarkable. PELVIC VISCERA: Uterus not seen, likely surgically absent. No adnexal mass. OSSEOUS STRUCTURES: No acute or suspicious osseous abnormalities. CT/CT abdomen pelvis wo IV con IMPRESSION: No acute CT findings. Diffuse hepatic steatosis. Status post cholecystectomy.
[2022-10-21 12:32] VITALS: BP 189/86; PULSE 73; RESP 18; TEMP 36.6; O2SAT 96; BMI 41.1
--- NOTE | 2022-10-21 12:33 | ED.GENADULT ---
HPI - General Adult General Chief complaint: Abdominal Pain <NATHALIA Godinez - Last Filed: 10/21/22 19:35> Stated complaint: Low Abd Pain <NATHALIA Godinez - Last Filed: 10/21/22 19:35> Time Seen by Provider: 10/21/22 13:55 <NATHALIA Godinez - Last Filed: 10/21/22 19:35> Source: patient and family ( [place]) <Bulmaro Looney MD - Last Filed: 10/21/22 17:01> Mode of arrival: ambulatory <Bulmaro Looney MD - Last Filed: 10/21/22 17:01> Limitations: language barrier (Patient understands some Burmese, Finnish is her 1st language, hourly sign language interpreter used) <Bulmaro Looney MD - Last Filed: 10/21/22 17:01> History of Present Illness HPI narrative: 57-year-old female who presents emergency department for evaluation of lower abdominal pain and right flank pain. The patient states for the past week she has noticed a burning sensation in her lower abdomen. She runs or hand across her lower abdomen when asked to localize the pain. She describes his burning is constant but waxes wanes in intensity and is currently 10/10. She has had dysuria. She states that she urinates frequently but in small amounts. She states that she has urgency and can only urinate a small amount of urine when she needs to go to the bathroom. She states that yesterday she developed right flank pain. She states this pain is been constant, sharp and is 10/10. Patient states that she has a history of urinary tract infection but has not had 1 in many years. She has not been on antibiotics recently. She has been taking Tylenol and ibuprofen with no relief for pain. Patient has a chronic pain syndrome of left lower back pain secondary to a pinched nerve and she takes gabapentin. She has been compliant with her medications she states the gabapentin is not helping her abdominal pain. The patient denied fever but states she has been having chills. She denied rhinorrhea, sore throat, cough, chest pain, shortness of breath. Patient has had nausea with no vomiting. She states she has had 3 days of loose stools, 4 stools per day, she did not notice any blood in the stools. Past surgical history is significant for appendectomy hysterectomy, appendectomy, she still has her ovaries. <Bulmaro Looney MD - Last Filed: 10/21/22 17:01> Related Data Home medications: Home Medications Medication Instructions Recorded Confirmed albuterol sulfate 90 mcg/actuation 2 puff inhalation QID PRN 07/02/22 aerosol inhaler (ProAir HFA) alcohol swabs (Alcohol Prep Pads) 0 pad topical TID 07/02/22 amitriptyline 10 mg tablet 10 mg PO BEDTIME 07/02/22 amlodipine 5 mg tablet 5 mg PO DAILY 07/02/22 blood sugar diagnostic (FreeStyle #10 ea 07/02/22 Lite Strips) chlorthalidone 25 mg tablet 25 mg PO DAILY 07/02/22 cyanocobalamin (vitamin B-12) 1,000 mcg PO DAILY 07/02/22 1,000 mcg tablet empagliflozin 10 mg tablet 10 mg PO QAM 07/02/22 (Jardiance) ferrous sulfate 325 mg (65 mg 325 mg PO BID 07/02/22 iron) tablet (FeroSul) lancets 33 gauge (TRUEplus Lancets) #100 ea 07/02/22 levofloxacin 750 mg tablet 750 mg PO DAILY 07/02/22 levothyroxine 200 mcg tablet 200 mcg PO DAILY 07/02/22 lisinopril 40 mg tablet 40 mg PO DAILY 07/02/22 metformin 500 mg tablet 500 mg PO BID 07/02/22 pantoprazole 40 mg tablet,delayed 40 mg PO BID 07/02/22 release propranolol 80 mg tablet 80 mg PO BEDTIME 07/02/22 Previous Rx's Medication Instructions Recorded ibuprofen 600 mg tablet 600 mg PO Q6H PRN pain #20 tabs 09/16/20 cyclobenzaprine 10 mg tablet 10 mg PO TID PRN muscle spasm #10 06/03/21 tabs benzonatate 200 mg capsule 200 mg PO TID PRN cough #20 caps 12/16/21 fluticasone propionate 50 2 spray intranasal DAILY #16 grams 12/16/21 mcg/actuation nasal spray,suspension (Flonase Allergy Relief) docusate sodium 100 mg capsule 100 mg PO BEDTIME #90 caps 07/02/22 hydrocortisone 2.5 % topical cream 1 appl IA BID-QID PRN hemorrhoids 07/02/22 with perineal applicator #30 grams (Proctosol HC) sennosides 8.6 mg tablet (Natural 17.2 mg PO BEDTIME constipation 07/02/22 Senna Laxative) #60 tabs cefuroxime axetil 500 mg tablet 500 mg PO Q12H 5 days #10 tabs 10/21/22 morphine 15 mg immediate release 15 mg PO Q4-6H PRN pain #10 tabs 10/21/22 tablet ondansetron 4 mg disintegrating 4 mg PO Q6-8H PRN nausea and 10/21/22 tablet vomiting #14 tabs <NATHALIA Godinez - Last Filed: 10/21/22 19:35> Allergies/adverse reactions: Allergies Allergy/AdvReac Type Severity Reaction Status Date / Time penicillin V Allergy Unknown shortness Verified 09/21/21 02:49 of breath tuberculin, purified protein Allergy Unknown RED, RASH Verified 09/21/21 02:49 deriva [TUBERCULIN,PURIF.PROT.DERIV.] <NATHALIA Godinez - Last Filed: 10/21/22 19:35> Review of Systems Review of Systems: Yes all other systems are reviewed and are negative <Bulmaro Looney MD - Last Filed: 10/21/22 17:01> [facility]LY [facility] Past Medical History [facility] Narrative: Past medical history: Anemia, hypertension, diabetes, hypothyroidism. Past surgical history: Appendectomy, hysterectomy, . Social history: She is and she is here with her . She denies tobacco, alcohol and drug use. <Bulmaro Looney MD - Last Filed: 10/21/22 17:01> Medical History: Medical History Anemia Hypertension <NATHALIA Godinez - Last Filed: 10/21/22 19:35> Social History Social History: Social History (Updated 07/02/22 @ 13:18 by GEMA Parry) Advance Directives: No Advance Directives Information Provided: Yes <NATHALIA Godinez - Last Filed: 10/21/22 19:35> Physical Exam ED Vital Signs: Vital Signs - 24 hr 10/21/22 12:32 10/21/22 15:59 10/21/22 17:10 Temperature 97.8 F 97.8 F Pulse Rate 73 55 Respiratory Rate 18 18 16 Blood Pressure 189/86 H 152/70 H Pulse Oximetry 96 99 Oxygen Delivery Method Room Air Room Air BMI result Body Mass Index 41.1 <NATHALIA Godinez - Last Filed: 10/21/22 19:35> Vital Signs - 24 hr 10/21/22 12:32 10/21/22 15:59 10/21/22 17:10 Temperature 97.8 F 97.8 F Pulse Rate 73 55 Respiratory Rate 18 18 16 Blood Pressure 189/86 H 152/70 H Pulse Oximetry 96 99 Oxygen Delivery Method Room Air Room Air BMI result Body Mass Index 41.1 <Bulmaro Looney MD - Last Filed: 10/21/22 17:01> Const Other: Awake, alert, female patient, she appears in distress secondary to her pain, she is holding onto her lower abdomen secondary to her pain, she has an elevated BMI 41.2. <Bulmaro Looney MD - Last Filed: 10/21/22 17:01> HENMT Head: Yes normal to inspection, Yes normocephalic and Yes atraumatic <Bulmaro Looney MD - Last Filed: 10/21/22 17:01> Ears: external ears normal <Bulmaro Looney MD - Last Filed: 10/21/22 17:01> General nose exam: Normal external nose present <Bulmaro Looney MD - Last Filed: 10/21/22 17:01> Face and sinus: Yes normal facial exam <Bulmaro Looney MD - Last Filed: 10/21/22 17:01> Mouth: Normal oral and palatal mucosa present <Bulmaro Looney MD - Last Filed: 10/21/22 17:01> Throat: Yes posterior oropharynx normal <Bulmaro Looney MD - Last Filed: 10/21/22 17:01> Eyes General: appearance normal, both eyes and all related structures <Bulmaro Looney MD - Last Filed: 10/21/22 17:01> Pupils: Equal, round and reactive pupils present <Bulmaro Looney MD - Last Filed: 10/21/22 17:01> Neck Neck: Yes normal visual inspection, Yes no lymphadenopathy, Yes trachea midline and Yes supple <Bulmaro Looney MD - Last Filed: 10/21/22 17:01> Chest Chest palpation & inspection: normal inspection of the chest and normal palpation of entire chest wall <Bulmaro Looney MD - Last Filed: 10/21/22 17:01> Resp Effort & Inspection: normal respiratory effort and able to speak in complete sentences <Bulmaro Looney MD - Last Filed: 10/21/22 17:01> Auscultation: clear to auscultation bilaterally <MD Torey Felix Last Filed: 10/21/22 17:01> Cardio Rate: regular rate <MD Torey Felix Last Filed: 10/21/22 17:01> Rhythm: regular rhythm <MD Torey Felix Last Filed: 10/21/22 17:01> Heart sounds: S1 normal heart sound present, S2 normal heart sound present and no murmurs <MD Torey Felix Last Filed: 10/21/22 17:01> GI Other: Patient's abdomen is obese, she has tenderness palpation over her left lower quadrant, right lower quadrant and suprapubic area with increased pain with palpation of the suprapubic area, patient has no left CVA tenderness but does have moderate right-sided CVA tenderness. She has normoactive bowel sounds, she does not appear to be distended. <Bulmaro Looney MD - Last Filed: 10/21/22 17:01> General: Yes no CVA tenderness <Bulmaro Looney MD - Last Filed: 10/21/22 17:01> Back/Spine/Pelvis Back: no CVA tenderness <MD Torey Felix Last Filed: 10/21/22 17:01> Skin General skin exam: no rashes or lesions noted <MD Torey Felix Last Filed: 10/21/22 17:01> Neuro Cranial nerves: Yes CN's II-XII intact bilaterally and Yes Equal, round and reactive pupils present <Bulmaro Looney MD - Last Filed: 10/21/22 17:01> Cognition (Neuro): normal cognition <Bulmaro Looney MD - Last Filed: 10/21/22 17:01> Motor exam (neuro): 5/5 motor strength present throughout <Bulmaro Looney MD - Last Filed: 10/21/22 17:01> Extrem General: Yes normal to inspection <Bulmaro Looney MD - Last Filed: 10/21/22 17:01> Psych Appearance: grossly normal <Bulmaro Looney MD - Last Filed: 10/21/22 17:01> Speech and movement: Normal speech and movement present <Bulmaro Looney MD - Last Filed: 10/21/22 17:01> Affect: normal affect <Bulmaro Looney MD - Last Filed: 10/21/22 17:01> Attitude: cooperative <Bulmaro Looney MD - Last Filed: 10/21/22 17:01> Thought process: Normal thought process present <Bulmaro Looney MD - Last Filed: 10/21/22 17:01> Thought content: Normal thought content present <Bulmaro Looney MD - Last Filed: 10/21/22 17:01> Course Course Course Narrative: RME: 57 yold female presents to the ED for dysuria and only urinary dribble for the past week with suprapubic pain. labs, UA, and bladder scan ordered. Bladder scan is 97. Will order abdominal CT scan to check for stone or colitis. Patient had appendix removed in the past. <NATHALIA Godinez - Last Filed: 10/21/22 19:35> Medications Administered Discontinued Medications Generic Name Dose Route Start Last Admin Trade Name Freq PRN Reason Stop Dose Admin Cefuroxime Axetil 500 mg 10/21/22 16:51 10/21/22 17:10 Cefuroxime Axetil 500 Mg Tablet PO 10/21/22 16:52 500 mg ONCE ONE Administration Sodium Chloride 1,000 mls @ 999 mls/hr 10/21/22 14:16 10/21/22 15:27 Ns IV 10/21/22 15:16 Infused .Q1H1M STA Infusion Ketorolac Tromethamine 15 mg 10/21/22 14:16 10/21/22 14:29 Ketorolac Tromethamine 15 Mg/Ml Vial IVPUSH 10/21/22 14:17 15 mg ONCE STA Administration Morphine Sulfate 4 mg 10/21/22 14:16 10/21/22 14:29 Morphine Sulfate 4 Mg/Ml Cartridge IVPUSH 10/21/22 14:17 4 mg ONCE STA Administration Protocol Morphine Sulfate 4 mg 10/21/22 16:50 10/21/22 17:10 Morphine Sulfate 4 Mg/Ml Cartridge IVPUSH 10/21/22 16:51 4 mg ONCE STA Administration Protocol Ondansetron HCl 4 mg 10/21/22 14:16 10/21/22 14:29 Ondansetron Hcl 4 Mg/2 Ml Vial IVPUSH 10/21/22 14:17 4 mg ONCE ONE Administration <NATHALIA Godinez - Last Filed: 10/21/22 19:35> Medications Administered Discontinued Medications Generic Name Dose Route Start Last Admin Trade Name Freq PRN Reason Stop Dose Admin Cefuroxime Axetil 500 mg 10/21/22 16:51 10/21/22 17:10 Cefuroxime Axetil 500 Mg Tablet PO 10/21/22 16:52 500 mg ONCE ONE Administration Sodium Chloride 1,000 mls @ 999 mls/hr 10/21/22 14:16 10/21/22 15:27 Ns IV 10/21/22 15:16 Infused .Q1H1M STA Infusion Ketorolac Tromethamine 15 mg 10/21/22 14:16 10/21/22 14:29 Ketorolac Tromethamine 15 Mg/Ml Vial IVPUSH 10/21/22 14:17 15 mg ONCE STA Administration Morphine Sulfate 4 mg 10/21/22 14:16 10/21/22 14:29 Morphine Sulfate 4 Mg/Ml Cartridge IVPUSH 10/21/22 14:17 4 mg ONCE STA Administration Protocol Morphine Sulfate 4 mg 10/21/22 16:50 10/21/22 17:10 Morphine Sulfate 4 Mg/Ml Cartridge IVPUSH 10/21/22 16:51 4 mg ONCE STA Administration Protocol Ondansetron HCl 4 mg 10/21/22 14:16 10/21/22 14:29 Ondansetron Hcl 4 Mg/2 Ml Vial IVPUSH 10/21/22 14:17 4 mg ONCE ONE Administration <Bulmaro Looney MD - Last Filed: 10/21/22 17:01> Medical Decision Making Medical Decision Making MDM Narrative: 57-year-old female who presents emergency department for evaluation lower abdominal pain x1 week with dysuria, urgency and frequency with for episodes of loose diarrheal stools x3 days, 2 days of right-sided flank pain. The patient's blood pressure was elevated at 180 9/86 otherwise vital signs were unremarkable. RME was performed at triage. Patient was ordered to get a CBC, CMP, urine test, urinalysis. She also had bladder scan which revealed only 97 cc of urine in her bladder. CT scan of the abdomen pelvis without IV contrast was also ordered and is pending. I added a lipase to the labs. Patient's pain was treated with Toradol 15 mg IV, morphine 4 mg IV. Nausea was treated with Zofran 4 mg IV. She was also ordered to get normal saline x1 L. 1632: Patient had some improvement with the above treatment over she states that she is still having significant pain, 03/15 therefore she was ordered to get morphine 4 mg IV. Patient's urinalysis and microscopic evaluation did not reveal significant number of wbc's and there was no bacteria. The CT scan of the patient's abdomen pelvis without IV contrast did not reveal a clear cause for lower abdominal pain or her right flank pain. This time I do not have a clear etiology for her symptoms, it is possible that she may have urinary tract infection or urethritis clinically therefore I will start the patient empirically on cefuroxime 500 mg twice a day for 5 days. Patient was advised to continue taking Tylenol and ibuprofen and for pain not relieved by these 2 medications she was prescribed morphine 15 mg every 4-6 hours as needed. Also prescribe Zofran 4 mg the OTC every 6-8 hours as needed for nausea or vomiting. <Bulmaro Looney MD - Last Filed: 10/21/22 17:01> Differential Diagnosis Differential Diagnoses: The differential diagnosis associated with the presentation includes <Bulmaro Looney MD - Last Filed: 10/21/22 17:01> Differential diagnosis includes but is not limited to pyelonephritis, urinary tract infection, renal colic, ureteral stone, colitis, diverticulitis, urethritis <Bulmaro Looney MD - Last Filed: 10/21/22 17:01> Lab Data MDM Lab Attestation statement: I reviewed the patient's lab results. <Bulmaro Looney MD - Last Filed: 10/21/22 17:01> My interpretation his laboratory evaluations follows: Elevated glucose 233, elevated alkaline phosphatase of 118, normal lipase of 2. Urinalysis was positive for leukocyte esterase. Microscopic evaluation of the urine revealed 6-10 WBCs, 6-10 squamous cells and no bacteria which suggests that the patient does not have a significant urinary tract infection is the cause of her symptoms. <Bulmaro Looney MD - Last Filed: 10/21/22 17:01> Result Diagrams: 10/21/22 13:03 10/21/22 13:03 <NATHALIA Godinez - Last Filed: 10/21/22 19:35> Labs: Lab Results 10/21/22 10/21/22 10/21/22 Range/Units 12:57 13:03 13:03 WBC 6.0 (4.8-10.8) X10*3/uL RBC 4.96 (4.20-5.50) X10*6/uL Hgb 13.7 (12.0-16.0) g/dl Hct 43.0 (37.0-47.0) % MCV 86.7 (80.0-98.0) fL MCH 27.6 (27.0-33.0) pg MCHC 31.9 (31.0-35.0) g/dl RDW 13.5 (11.0-16.0) % Plt Count 196 (160-400) X10*3/uL MPV 10.3 (9.4-12.3) fL Immature Gran % (Auto) 0.7 H (0.0-0.4) % Neut % (Auto) 59.5 (45-73) % Lymph % (Auto) 29.6 (20-40) % [place] % (Auto) 7.1 (2-11) % Eos % (Auto) 2.3 (0-4) % Baso % (Auto) 0.8 (0-2) % Lymph # (Auto) 1.8 (1.2-4.9) X10*3/uL [place] # (Auto) 0.4 (0.1-1.2) X10*3/uL Eos # (Auto) 0.1 (0.0-0.4) X10*3/uL Baso # (Auto) 0.1 (0.0-0.2) X10*3/uL Abs Immat Gran (auto) 0.04 H (0.00-0.03) X10*3/uL Absolute Neuts (auto) 3.6 (2.0-8.3) x10*3/uL Absolute Nucleated RBC 0.000 (0.0-0.012) X10*3/uL Nucleated RBC % (auto) 0.0 (0.0-0.2) /100WBC PT (10.0-13.1) SEC INR (0.9-1.1) APTT (26.0-36.4) SEC Sodium 140 (135-145) mmol/L Potassium 4.1 (3.3-5.1) mmol/L Chloride 105 (96-108) mmol/L Carbon Dioxide 25 (22-29) mmol/L Anion Gap 14 (12-20) BUN 15 (9-16) mg/dL Creatinine 0.81 (0.5-1.4) mg/dL Estim Creat Clear Calc 93.4 Estimated GFR > 60 Random Glucose 223 H (60-115) mg/dL Calcium 8.9 (8.4-10.2) mg/dL Total Bilirubin 0.4 (0.0-1.0) mg/dL AST 15 (5-31) U/L ALT 19 (0-31) U/L Alkaline Phosphatase 118 H (39-117) U/L Total Protein 7.0 (6.5-8.0) g/dL Albumin 4.1 (3.5-5.0) g/dL Lipase 12 (8-78) U/L Urine Color Urine Appearance Urine pH (5.0-9.0) Ur Specific [place] (1.005-1.025) Urine Protein (Neg-Trace) mg/dL Urine Glucose (UA) (Negative) mg/dL Urine Ketones (Negative) mg/dL Urine Blood (Negative) Urine Nitrite (Negative) Ur Leukocyte Esterase (Negative) Urine RBC (0-2) /HPF Urine WBC (0-5) /HPF Ur Squamous Epith Cells (0-2) /HPF Urine Bacteria (None Seen) Hyaline Casts (0-2) /LPF Urine Test NEGATIVE (NEGATIVE) 10/21/22 10/21/22 Range/Units 13:03 13:03 WBC (4.8-10.8) X10*3/uL RBC (4.20-5.50) X10*6/uL Hgb (12.0-16.0) g/dl Hct (37.0-47.0) % MCV (80.0-98.0) fL MCH (27.0-33.0) pg MCHC (31.0-35.0) g/dl RDW (11.0-16.0) % Plt Count (160-400) X10*3/uL MPV (9.4-12.3) fL Immature Gran % (Auto) (0.0-0.4) % Neut % (Auto) (45-73) % Lymph % (Auto) (20-40) % [place] % (Auto) (2-11) % Eos % (Auto) (0-4) % Baso % (Auto) (0-2) % Lymph # (Auto) (1.2-4.9) X10*3/uL [place] # (Auto) (0.1-1.2) X10*3/uL Eos # (Auto) (0.0-0.4) X10*3/uL Baso # (Auto) (0.0-0.2) X10*3/uL Abs Immat Gran (auto) (0.00-0.03) X10*3/uL Absolute Neuts (auto) (2.0-8.3) x10*3/uL Absolute Nucleated RBC (0.0-0.012) X10*3/uL Nucleated RBC % (auto) (0.0-0.2) /100WBC PT 12.2 (10.0-13.1) SEC INR 1.1 (0.9-1.1) APTT 32.9 (26.0-36.4) SEC Sodium (135-145) mmol/L Potassium (3.3-5.1) mmol/L Chloride (96-108) mmol/L Carbon Dioxide (22-29) mmol/L Anion Gap (12-20) BUN (9-16) mg/dL Creatinine (0.5-1.4) mg/dL Estim Creat Clear Calc Estimated GFR Random Glucose (60-115) mg/dL Calcium (8.4-10.2) mg/dL Total Bilirubin (0.0-1.0) mg/dL AST (5-31) U/L ALT (0-31) U/L Alkaline Phosphatase (39-117) U/L Total Protein (6.5-8.0) g/dL Albumin (3.5-5.0) g/dL Lipase (8-78) U/L Urine Color Yellow Urine Appearance Clear Urine pH 5.5 (5.0-9.0) Ur Specific [place] 1.025 (1.005-1.025) Urine Protein Negative (Neg-Trace) mg/dL Urine Glucose (UA) >=1000 H (Negative) mg/dL Urine Ketones Negative (Negative) mg/dL Urine Blood Negative (Negative) Urine Nitrite Negative (Negative) Ur Leukocyte Esterase Trace H (Negative) Urine RBC 0-2 (0-2) /HPF Urine WBC 6-10 H (0-5) /HPF Ur Squamous Epith Cells 6-10 (0-2) /HPF Urine Bacteria None Seen (None Seen) Hyaline Casts 0-2 (0-2) /LPF Urine Test (NEGATIVE) <NATHALIA Godinez - Last Filed: 10/21/22 19:35> Lab Results 10/21/22 10/21/22 10/21/22 Range/Units 12:57 13:03 13:03 WBC 6.0 (4.8-10.8) X10*3/uL RBC 4.96 (4.20-5.50) X10*6/uL Hgb 13.7 (12.0-16.0) g/dl Hct 43.0 (37.0-47.0) % MCV 86.7 (80.0-98.0) fL MCH 27.6 (27.0-33.0) pg MCHC 31.9 (31.0-35.0) g/dl RDW 13.5 (11.0-16.0) % Plt Count 196 (160-400) X10*3/uL MPV 10.3 (9.4-12.3) fL Immature Gran % (Auto) 0.7 H (0.0-0.4) % Neut % (Auto) 59.5 (45-73) % Lymph % (Auto) 29.6 (20-40) % [place] % (Auto) 7.1 (2-11) % Eos % (Auto) 2.3 (0-4) % Baso % (Auto) 0.8 (0-2) % Lymph # (Auto) 1.8 (1.2-4.9) X10*3/uL [place] # (Auto) 0.4 (0.1-1.2) X10*3/uL Eos # (Auto) 0.1 (0.0-0.4) X10*3/uL Baso # (Auto) 0.1 (0.0-0.2) X10*3/uL Abs Immat Gran (auto) 0.04 H (0.00-0.03) X10*3/uL Absolute Neuts (auto) 3.6 (2.0-8.3) x10*3/uL Absolute Nucleated RBC 0.000 (0.0-0.012) X10*3/uL Nucleated RBC % (auto) 0.0 (0.0-0.2) /100WBC PT (10.0-13.1) SEC INR (0.9-1.1) APTT (26.0-36.4) SEC Sodium 140 (135-145) mmol/L Potassium 4.1 (3.3-5.1) mmol/L Chloride 105 (96-108) mmol/L Carbon Dioxide 25 (22-29) mmol/L Anion Gap 14 (12-20) BUN 15 (9-16) mg/dL Creatinine 0.81 (0.5-1.4) mg/dL Estim Creat Clear Calc 93.4 Estimated GFR > 60 Random Glucose 223 H (60-115) mg/dL Calcium 8.9 (8.4-10.2) mg/dL Total Bilirubin 0.4 (0.0-1.0) mg/dL AST 15 (5-31) U/L ALT 19 (0-31) U/L Alkaline Phosphatase 118 H (39-117) U/L Total Protein 7.0 (6.5-8.0) g/dL Albumin 4.1 (3.5-5.0) g/dL Lipase 12 (8-78) U/L Urine Color Urine Appearance Urine pH (5.0-9.0) Ur Specific [place] (1.005-1.025) Urine Protein (Neg-Trace) mg/dL Urine Glucose (UA) (Negative) mg/dL Urine Ketones (Negative) mg/dL Urine Blood (Negative) Urine Nitrite (Negative) Ur Leukocyte Esterase (Negative) Urine RBC (0-2) /HPF Urine WBC (0-5) /HPF Ur Squamous Epith Cells (0-2) /HPF Urine Bacteria (None Seen) Hyaline Casts (0-2) /LPF Urine Test NEGATIVE (NEGATIVE) 10/21/22 10/21/22 Range/Units 13:03 13:03 WBC (4.8-10.8) X10*3/uL RBC (4.20-5.50) X10*6/uL Hgb (12.0-16.0) g/dl Hct (37.0-47.0) % MCV (80.0-98.0) fL MCH (27.0-33.0) pg MCHC (31.0-35.0) g/dl RDW (11.0-16.0) % Plt Count (160-400) X10*3/uL MPV (9.4-12.3) fL Immature Gran % (Auto) (0.0-0.4) % Neut % (Auto) (45-73) % Lymph % (Auto) (20-40) % [place] % (Auto) (2-11) % Eos % (Auto) (0-4) % Baso % (Auto) (0-2) % Lymph # (Auto) (1.2-4.9) X10*3/uL [place] # (Auto) (0.1-1.2) X10*3/uL Eos # (Auto) (0.0-0.4) X10*3/uL Baso # (Auto) (0.0-0.2) X10*3/uL Abs Immat Gran (auto) (0.00-0.03) X10*3/uL Absolute Neuts (auto) (2.0-8.3) x10*3/uL Absolute Nucleated RBC (0.0-0.012) X10*3/uL Nucleated RBC % (auto) (0.0-0.2) /100WBC PT 12.2 (10.0-13.1) SEC INR 1.1 (0.9-1.1) APTT 32.9 (26.0-36.4) SEC Sodium (135-145) mmol/L Potassium (3.3-5.1) mmol/L Chloride (96-108) mmol/L Carbon Dioxide (22-29) mmol/L Anion Gap (12-20) BUN (9-16) mg/dL Creatinine (0.5-1.4) mg/dL Estim Creat Clear Calc Estimated GFR Random Glucose (60-115) mg/dL Calcium (8.4-10.2) mg/dL Total Bilirubin (0.0-1.0) mg/dL AST (5-31) U/L ALT (0-31) U/L Alkaline Phosphatase (39-117) U/L Total Protein (6.5-8.0) g/dL Albumin (3.5-5.0) g/dL Lipase (8-78) U/L Urine Color Yellow Urine Appearance Clear Urine pH 5.5 (5.0-9.0) Ur Specific [place] 1.025 (1.005-1.025) Urine Protein Negative (Neg-Trace) mg/dL Urine Glucose (UA) >=1000 H (Negative) mg/dL Urine Ketones Negative (Negative) mg/dL Urine Blood Negative (Negative) Urine Nitrite Negative (Negative) Ur Leukocyte Esterase Trace H (Negative) Urine RBC 0-2 (0-2) /HPF Urine WBC 6-10 H (0-5) /HPF Ur Squamous Epith Cells 6-10 (0-2) /HPF Urine Bacteria None Seen (None Seen) Hyaline Casts 0-2 (0-2) /LPF Urine Test (NEGATIVE) <Bulmaro Looney MD - Last Filed: 10/21/22 17:01> ABG Data Interpretation: 03/2023 <Bulmaro Looney MD - Last Filed: 10/21/22 17:01> Radiology Impression Discussion of test interpretation with radiology: I have reviewed the radiologist's reading. <Bulmaro Looney MD - Last Filed: 10/21/22 17:01> Radiologist Impression: CT abdomen pelvis wo IV con IMPRESSION: No acute CT findings. ? Diffuse hepatic steatosis. Status post cholecystectomy. ? Dictated By: Hari Harmon MD Signed By:<Electronically signed by Hari Harmon MD in [place]>10/06 <Bulmaro Looney MD - Last Filed: 10/21/22 17:01> Independent Historian Clinical information obtained from an independent historian. History obtained from or confirmed by: Spouse and Other ([place] prescription monitoring program-patient has no prescriptions for narcotics) <Bulmaro Looney MD - Last Filed: 10/21/22 17:01> Discharge Plan Discharge Clinical Impression: Dysuria Abdominal pain Qualifiers: Abdominal location: lower abdomen, unspecified Qualified Code(s): R10.30 - Lower abdominal pain, unspecified <NATHALIA Godinez - Last Filed: 10/21/22 19:35> Patient Disposition: Home, Self-Care <NATHALIA Godinez - Last Filed: 10/21/22 19:35> Instructions: Dysuria (ED), Abdominal Pain (ED) <NATHALIA Godinez - Last Filed: 10/21/22 19:35> Additional Instructions: Your laboratory evaluation was unremarkable. Your urinalysis did reveal 6-10 white blood cells per high-powered field but no bacteria. The CT scan of your abdomen pelvis without IV contrast did not reveal a clear cause for your pain. At this time, I do not have a clear cause for your pain however the symptom that concerns me the most is the burning sensation with urination and I suspect that you have a urine infection causing her symptoms. Therefore, I am going to treat you with an antibiotic called cefuroxime 500 mg every 12 hours for 5 days. This is an antibiotic that we treat an abdominal infection, kidney infection and/or a urine infection Take ibuprofen 200 mg pills, 3 pills every 6 hours as needed for pain. Take Tylenol (acetaminophen) 2 pills every 4-6 hours as needed for pain. For pain not relieved by ibuprofen or Tylenol take morphine 15 mg pills, 1 pill every 4 hours as needed for pain. This medication will make you sleepy, do not drive or work while taking this medication. Morphine is a narcotic medication and can be addicting. If you are concerned about addiction you can ask the pharmacist for less pills or do not get this prescription filled. Take Zofran ODT 4 mg pills, 1 pill dissolved in your mouth every 8 hours as needed for nausea and vomiting. Follow-up with your doctor in 2 days. Please return to the emergency department if your symptoms get worse or if you develop any symptoms that are concerning to you. <NATHALIA Godinez - Last Filed: 10/21/22 19:35> Prescriptions: New cefuroxime axetil 500 mg tablet 500 mg PO Q12H 5 Days Qty: 10 0RF morphine 15 mg tablet 15 mg PO Q4-6H PRN (Reason: pain) Qty: 10 0RF Rx Instructions: The patient may ask for partial fill; Partial Fill upon patient request. ondansetron 4 mg tablet,disintegrating 4 mg PO Q6-8H PRN (Reason: nausea and vomiting) Qty: 14 0RF No Action ibuprofen 600 mg tablet 600 mg PO Q6H PRN (Reason: pain) Qty: 20 0RF cyclobenzaprine 10 mg tablet 10 mg PO TID PRN (Reason: muscle spasm) Qty: 10 0RF benzonatate 200 mg capsule 200 mg PO TID PRN (Reason: cough) Qty: 20 0RF fluticasone propionate [Flonase Allergy Relief] 50 mcg/actuation spray,suspension 2 spray intranasal DAILY Qty: 16 0RF Rx Instructions: administer into each nostril levofloxacin 750 mg tablet 750 mg PO DAILY lisinopril 40 mg tablet 40 mg PO DAILY Jardiance 10 mg tablet 10 mg PO QAM (DME) lancets [TRUEplus Lancets] 33 gauge misc See Rx Instructions .ROUTE TID Qty: 100 Rx Instructions: As directed alcohol swabs [Alcohol Prep Pads] Pads, Medicated 0 pad topical TID levothyroxine 200 mcg tablet 200 mcg PO DAILY ferrous sulfate [FeroSul] 325 mg (65 mg iron) tablet 325 mg PO BID pantoprazole 40 mg tablet,delayed release (DR/EC) 40 mg PO BID amitriptyline 10 mg tablet 10 mg PO BEDTIME amlodipine 5 mg tablet 5 mg PO DAILY chlorthalidone 25 mg tablet 25 mg PO DAILY (DME) FreeStyle Lite Strips Strip See Rx Instructions .ROUTE TID Qty: 10 Rx Instructions: As directed cyanocobalamin (vitamin B-12) 1,000 mcg tablet 1,000 mcg PO DAILY propranolol 80 mg tablet 80 mg PO BEDTIME metformin 500 mg tablet 500 mg PO BID albuterol sulfate [ProAir HFA] 90 mcg/actuation HFA aerosol inhaler 2 puff inhalation QID PRN docusate sodium 100 mg capsule 100 mg PO BEDTIME Qty: 90 3RF sennosides [Natural Senna Laxative] 8.6 mg tablet 17.2 mg PO BEDTIME Qty: 60 3RF hydrocortisone [Proctosol HC] 2.5 % cream with perineal applicator 1 appl [place] BID-QID PRN (Reason: hemorrhoids) Qty: 30 2RF <NATHALIA Godinez - Last Filed: 10/21/22 19:35> Stand Alone Forms: Work/School Release <NATHALIA Godinez - Last Filed: 10/21/22 19:35> Interventions: ED Discharge Assessment Last Done: 10/21/22 17:39 <NATHALIA Godinez - Last Filed: 10/21/22 19:35> Discharge Date/Time: 10/21/22 17:39 <NATHALIA Godinez - Last Filed: 10/21/22 19:35>
--- NOTE | 2022-10-21 12:40 | PC.NURSE ---
Patient bladder scanned for 97 PA aware
[2022-10-21 13:09] LABS: MANUAL DIFF FLAG NO
[2022-10-21 13:10] LABS: Appearance Urine Clear; Basophils Absolute Auto 0.1 X10*3/uL (0.0-0.2); Basophils Percent Auto 0.8 % (0-2); Color Urine Yellow; Eosinophils Absolute Auto 0.1 X10*3/uL (0.0-0.4); Eosinophils Percent Auto 2.3 % (0-4); Glucose Urine UA >=1000 mg/dL (Negative); Hemoglobin 13.7 g/dl (12.0-16.0); Imm Gran Abs Auto 0.04 X10*3/uL (0.00-0.03); Imm Gran Pct Auto 0.7 % (0.0-0.4); Leukocyte Esterase Urine Trace (Negative); Lymphocytes Absolute Auto 1.8 X10*3/uL (1.2-4.9); Lymphocytes Percent Auto 29.6 % (20-40); Mean Corpuscular HGB Conc 31.9 g/dl (31.0-35.0); Mean Corpuscular Hemoglobin 27.6 pg (27.0-33.0); Mean Corpuscular Volume 86.7 fL (80.0-98.0); Mean Platelet Volume 10.3 fL (9.4-12.3); Monocytes Absolute Auto 0.4 X10*3/uL (0.1-1.2); Monocytes Percent Auto 7.1 % (2-11); Neutrophils Absolute Auto 3.6 x10*3/uL (2.0-8.3); Neutrophils Percent Auto 59.5 % (45-73); Nitrite Urine Negative (Negative); PH 5.5 (5.0-9.0); Platelet Count 196 X10*3/uL (160-400); Red Blood Count 4.96 X10*6/uL (4.20-5.50); Red Cell Distribution Width 13.5 % (11.0-16.0); Specific Gravity - Urine 1.025 (1.005-1.025); UMIC TRIGGER UACC YES; Urine Blood Negative (Negative); Urine Ketones Negative (Negative); Urine Protein Negative (Neg-Trace)
[2022-10-21 13:13] LABS: Bacteria Urine None Seen (None Seen); Hyaline Casts Urine 0-2 /LPF (0-2); RBC Urine 0-2 /HPF (0-2); UACC Culture Trigger YES
[2022-10-21 13:15] LABS: INTERNATIONAL NORM RATIO 1.1 (0.9-1.1); Prothrombin Time 12.2 SEC (10.0-13.1)
[2022-10-21 13:18] LABS: Partial Thromboplastin Time 32.9 SEC (26.0-36.4)
[2022-10-21 13:24] LABS: Alanine Aminotransferase 19 U/L (0-31); Albumin Level 4.1 g/dL (3.5-5.0); Alkaline Phosphatase 118 U/L (39-117); Anion Gap 14 (12-20); Aspartate Amino Transferase 15 U/L (5-31); Bilirubin Total 0.4 mg/dL (0.0-1.0); Blood Urea Nitrogen 15 mg/dL (9-16); Calcium 8.9 mg/dL (8.4-10.2); Carbon Dioxide 25 mmol/L (22-29); Chloride 105 mmol/L (96-108); Creatinine Clr Calc Pharmacy 93.4; Estimated Glomerular Filt Rate > 60; Glucose Random 223 mg/dL (60-115); Potassium 4.1 mmol/L (3.3-5.1); Sodium 140 mmol/L (135-145)
[2022-10-21 14:06] LABS: UPreg QC Valid YES
[2022-10-21 14:07] LABS: Urine Pregnancy NEGATIVE (NEGATIVE)
[2022-10-21] MEDS: Ketorolac Tromethamine 15 MG/ML VIAL IVPUSH (14:29)
[2022-10-21] MEDS: Morphine Sulfate 4 MG/ML CARTRIDGE IVPUSH ×2 (14:29→17:10)
[2022-10-21] MEDS: ondansetron HCL 4 MG/2 ML VIAL IVPUSH (14:29)
[2022-10-21] MEDS: 0.9 % Sodium Chloride 1,000 ML 999 ML IV (14:29)
[2022-10-21 14:46] LABS: Lipase 12 U/L (8-78)
[2022-10-21 15:59] VITALS: BP 152/70; PULSE 55; RESP 18; TEMP 36.6; O2SAT 99
[2022-10-21 17:10] VITALS: RESP 16
== END 2022-10-21 17:39 | disposition home or self-care (01) ==
PROVIDERS: Physician Assistant; Emergency Provider Emergency Medicine Emergency Medical Services; PCP Internal Medicine
DX: R30.0 Dysuria (principal); R10.30 Lower abdominal pain, unspecified; G89.4 Chronic pain syndrome; E66.9 Obesity, unspecified; Z68.41 Body mass index [BMI] 40.0-44.9, adult
CPT/HCPCS: 36415; 51798; 74176; 80053; 81001; 81025; 83690; 85025; 85610; 85730; 87086; 96361; 96374; 96375; 96376; 99284; J1885; J2270; J2405

== ENCOUNTER 2023-06-03 13:53 | Emergency (ER) | payer OTHER, SELFPAY ==
--- NOTE | ~2023-06-03 | XR_ITS ---
EXAMINATION: XR CHEST CLINICAL INFORMATION: Cough, fever. COMPARISON: 12/16/2021 chest radiograph. TECHNIQUE: 2 views of the chest were obtained. FINDINGS: No significant abnormality is noted involving the heart, lungs, mediastinum, bony thorax or soft tissues. XR/XR chest 2V IMPRESSION: No acute cardiopulmonary process.
--- NOTE | 2023-06-03 13:55 | ECG_ITS ---
Test Reason : chest pain Blood Pressure : / mmHG Vent. Rate : 076 BPM Atrial Rate : 076 BPM P-R Int : 164 ms QRS Dur : 094 ms QT Int : 414 ms P-R-T Axes : 016 054 016 degrees QTc Int : 465 ms Normal sinus rhythm Nonspecific T wave abnormality Abnormal ECG When compared with ECG of 28-NOV-2017 18:04, No significant change was found Referred By: Yesi Wheatley Electronically Signed By:SHITAL MARTINEZ
--- NOTE | 2023-06-03 14:00 | ED.GENADULT ---
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 Coughing for 2 weeks. She uses a pump she feel like she is wheezing. 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 Onset (ago): week(s) Related Data Home Medications Medication Instructions Recorded Confirmed albuterol sulfate 90 mcg/actuation 2 puff inhalation QID PRN 07/02/22 aerosol inhaler (ProAir HFA) alcohol swabs (Alcohol Prep Pads) 0 pad topical TID 07/02/22 amitriptyline 10 mg tablet 10 mg PO BEDTIME 07/02/22 amlodipine 5 mg tablet 5 mg PO DAILY 07/02/22 blood sugar diagnostic (FreeStyle #10 ea 07/02/22 Lite Strips) chlorthalidone 25 mg tablet 25 mg PO DAILY 07/02/22 cyanocobalamin (vitamin B-12) 1,000 mcg PO DAILY 07/02/22 1,000 mcg tablet empagliflozin 10 mg tablet 10 mg PO QAM 07/02/22 (Jardiance) ferrous sulfate 325 mg (65 mg 325 mg PO BID 07/02/22 iron) tablet (FeroSul) lancets 33 gauge (TRUEplus Lancets) #100 ea 07/02/22 levofloxacin 750 mg tablet 750 mg PO DAILY 07/02/22 levothyroxine 200 mcg tablet 200 mcg PO DAILY 07/02/22 lisinopril 40 mg tablet 40 mg PO DAILY 07/02/22 metformin 500 mg tablet 500 mg PO BID 07/02/22 pantoprazole 40 mg tablet,delayed 40 mg PO BID 07/02/22 release propranolol 80 mg tablet 80 mg PO BEDTIME 07/02/22 Previous Rx's Medication Instructions Recorded ibuprofen 600 mg tablet 600 mg PO Q6H PRN pain #20 tabs 09/16/20 cyclobenzaprine 10 mg tablet 10 mg PO TID PRN muscle spasm #10 06/03/21 tabs benzonatate 200 mg capsule 200 mg PO TID PRN cough #20 caps 12/16/21 fluticasone propionate 50 2 spray intranasal DAILY #16 grams 12/16/21 mcg/actuation nasal spray,suspension (Flonase Allergy Relief) docusate sodium 100 mg capsule 100 mg PO BEDTIME #90 caps 07/02/22 hydrocortisone 2.5 % topical cream 1 appl [place] BID-QID PRN hemorrhoids 07/02/22 with perineal applicator #30 grams (Proctosol HC) sennosides 8.6 mg tablet (Natural 17.2 mg PO BEDTIME constipation 07/02/22 Senna Laxative) #60 tabs cefuroxime axetil 500 mg tablet 500 mg PO Q12H 5 days #10 tabs 10/21/22 morphine 15 mg immediate release 15 mg PO Q4-6H PRN pain #10 tabs 10/21/22 tablet ondansetron 4 mg disintegrating 4 mg PO Q6-8H PRN nausea and 10/21/22 tablet vomiting #14 tabs albuterol sulfate 90 mcg/actuation 2 puff inhalation 6XD PRN 06/03/23 aerosol inhaler shortness of breath or wheezing #8.5 grams prednisone 20 mg tablet 60 mg PO DAILY #12 tabs 06/03/23 Allergies Allergy/AdvReac Type Severity Reaction Status Date / Time penicillin V Allergy Unknown shortness Verified 09/21/21 02:49 of breath tuberculin, purified protein Allergy Unknown RED, RASH Verified 09/21/21 02:49 deriva [TUBERCULIN,PURIF.PROT.DERIV.] Review of Systems Review of Systems: Yes all other systems are reviewed and are negative [facility] Past Medical History Medical History Anemia Hypertension Social History Social History Advance Directives: No Advance Directives Information Provided: Yes Physical Exam ED Vital Signs: Vital Signs - 24 hr 06/03/23 14:01 06/03/23 15:43 06/03/23 16:29 Temperature 98.1 F 98.3 F Pulse Rate 82 73 68 Respiratory Rate 20 20 16 Blood Pressure 207/95 H 182/85 H 187/84 H Pulse Oximetry 99 100 100 Oxygen Delivery Method Room Air Room Air Room Air 06/03/23 16:39 Temperature Pulse Rate 66 Respiratory Rate 18 Blood Pressure Pulse Oximetry Oxygen Delivery Method BMI result Body Mass Index 39.5 Const Other: coughing Nutritional Appearance: obese Orientation/consciousness: oriented to person and patient oriented x3 Limitations: no limitations HENMT Head: Yes normal to inspection Ears: external ears normal General nose exam: Normal external nose present Mouth: Normal oral and palatal mucosa present and oropharynx normal Throat: Yes posterior oropharynx normal Eyes General: appearance normal, both eyes and all related structures Neck Neck: Yes normal visual inspection Chest Chest palpation & inspection: normal inspection of the chest Resp Other: diffuse wheezing Cardio Jugular venous distension: no JVD Rate: regular rate Rhythm: regular rhythm Heart sounds: S1 normal heart sound present and S2 normal heart sound present GI Inspection: Yes normal to inspection Palpation (GI): Soft to palpation, nontender and No hepatosplenomegaly present Auscultation: normal bowel sounds General: Yes no CVA tenderness Back/Spine/Pelvis Back: no CVA tenderness Skin General skin exam: no rashes or lesions noted Neuro General: oriented to person and patient oriented x3 Cranial nerves: Yes CN's II-XII intact bilaterally Motor exam (neuro): 5/5 motor strength present throughout Extrem General: Yes normal to inspection Psych Appearance: grossly normal Course Course Course Narrative: This is a rapid medical exam: Additional HPI, ROS, PE not included below will be deferred to primary provider. Patient is a 58-year-old female presenting to the emergency department with complaint of cough, chest pain/tightness, fever for one week, generalized body aches. Hypertensive in triage, reports history of, states took BP med this am. Plan: EKG, CXR, Covid, flu, labs Reevaluation(s) Reevaluation #1: patient improved after nebs and steroids will dc on albuterol and prednisone Time: 17:46 Medications Administered Discontinued Medications Generic Name Dose Route Start Last Admin Trade Name [place] PRN Reason Stop Dose Admin Albuterol/Ipratropium 3 ml 06/03/23 16:23 06/03/23 16:38 Albuterol/Iprat 2.5/0.5mg 3 Ml Ampul.Neb INHALE 06/03/23 16:24 3 ml ONCE ONE Administration Amlodipine Besylate 5 mg 06/03/23 16:02 06/03/23 16:27 Amlodipine Besylate 5 Mg Tablet PO 06/03/23 16:03 5 mg ONCE ONE Administration Protocol Lisinopril 40 mg 06/03/23 16:02 06/03/23 16:27 Lisinopril 40 Mg Tablet PO 06/03/23 16:03 40 mg ONCE ONE Administration Protocol Prednisone 60 mg 06/03/23 16:23 06/03/23 16:27 Prednisone 20 Mg Tablet PO 06/03/23 16:24 60 mg ONCE ONE Administration Medical Decision Making Differential Diagnosis Differential Diagnoses: The differential diagnosis associated with the presentation includes (pneumonia, Covid, influenza, asthma, COPD were all considered) Admission/Observation Consideration of admission/observation: Escalation of care including admission/observation considered (upon arrival patient was considered for admission) Lab Data MDM Lab Attestation statement: I reviewed the patient's lab results. (influenza and covid negative) 06/03/23 15:59 06/03/23 15:59 Labs: Lab Results 06/03/23 06/03/23 06/03/23 Range/Units 14:33 14:33 15:59 WBC 5.5 (4.8-10.8) X10*3/uL RBC 4.96 (4.20-5.50) X10*6/uL Hgb 13.5 (12.0-16.0) g/dl Hct 42.9 (37.0-47.0) % MCV 86.5 (80.0-98.0) fL MCH 27.2 (27.0-33.0) pg MCHC 31.5 (31.0-35.0) g/dl RDW 13.2 (11.0-16.0) % Plt Count 175 (160-400) X10*3/uL MPV 10.7 (9.4-12.3) fL Immature Gran % (Auto) 0.4 (0.0-0.4) % Neut % (Auto) 56.6 (45-73) % Lymph % (Auto) 28.3 (20-40) % [place] % (Auto) 9.3 (2-11) % Eos % (Auto) 4.7 H (0-4) % Baso % (Auto) 0.7 (0-2) % Lymph # (Auto) 1.6 (1.2-4.9) X10*3/uL [place] # (Auto) 0.5 (0.1-1.2) X10*3/uL Eos # (Auto) 0.3 (0.0-0.4) X10*3/uL Baso # (Auto) 0.0 (0.0-0.2) X10*3/uL Abs Immat Gran (auto) 0.02 (0.00-0.03) X10*3/uL Absolute Neuts (auto) 3.1 (2.0-8.3) x10*3/uL Absolute Nucleated RBC 0.000 (0.0-0.012) X10*3/uL Nucleated RBC % (auto) 0.0 (0.0-0.2) /100WBC Sodium (135-145) mmol/L Potassium (3.3-5.1) mmol/L Chloride (96-108) mmol/L Carbon Dioxide (22-29) mmol/L Anion Gap (12-20) BUN (9-16) mg/dL Creatinine (0.5-1.4) mg/dL Estim Creat Clear Calc Estimated GFR Random Glucose (60-115) mg/dL Calcium (8.4-10.2) mg/dL Total Bilirubin (0.0-1.0) mg/dL AST (5-31) U/L ALT (0-31) U/L Alkaline Phosphatase (39-117) U/L Troponin I High Sens (<3.5-17.0) ng/L Total Protein (6.5-8.0) g/dL Albumin (3.5-5.0) g/dL COVID-19 (NATHAN) Negative (Negative) COVID-19 Clin Com See Note Influenza Type A (DEEPA) Negative (Negative) Influenza Type B (DEEPA) Negative (Negative) Influenza A & B Note See Note 06/03/23 06/03/23 Range/Units 15:59 15:59 WBC (4.8-10.8) X10*3/uL RBC (4.20-5.50) X10*6/uL Hgb (12.0-16.0) g/dl Hct (37.0-47.0) % MCV (80.0-98.0) fL MCH (27.0-33.0) pg MCHC (31.0-35.0) g/dl RDW (11.0-16.0) % Plt Count (160-400) X10*3/uL MPV (9.4-12.3) fL Immature Gran % (Auto) (0.0-0.4) % Neut % (Auto) (45-73) % Lymph % (Auto) (20-40) % [place] % (Auto) (2-11) % Eos % (Auto) (0-4) % Baso % (Auto) (0-2) % Lymph # (Auto) (1.2-4.9) X10*3/uL [place] # (Auto) (0.1-1.2) X10*3/uL Eos # (Auto) (0.0-0.4) X10*3/uL Baso # (Auto) (0.0-0.2) X10*3/uL Abs Immat Gran (auto) (0.00-0.03) X10*3/uL Absolute Neuts (auto) (2.0-8.3) x10*3/uL Absolute Nucleated RBC (0.0-0.012) X10*3/uL Nucleated RBC % (auto) (0.0-0.2) /100WBC Sodium 142 (135-145) mmol/L Potassium 4.0 (3.3-5.1) mmol/L Chloride 107 (96-108) mmol/L Carbon Dioxide 29 (22-29) mmol/L Anion Gap 10 L (12-20) BUN 11 (9-16) mg/dL Creatinine 0.76 (0.5-1.4) mg/dL Estim Creat Clear Calc 96.1 Estimated GFR > 60 Random Glucose 138 H (60-115) mg/dL Calcium 9.2 (8.4-10.2) mg/dL Total Bilirubin 0.3 (0.0-1.0) mg/dL AST 19 (5-31) U/L ALT 27 (0-31) U/L Alkaline Phosphatase 112 (39-117) U/L Troponin I High Sens < 2.7 (<3.5-17.0) ng/L Total Protein 7.1 (6.5-8.0) g/dL Albumin 4.1 (3.5-5.0) g/dL COVID-19 (NATHAN) (Negative) COVID-19 Clin Com Influenza Type A (DEEPA) (Negative) Influenza Type B (DEEPA) (Negative) Influenza A & B Note Independent Interpretation I performed an independent interpretation of an: Plain X-Ray (no infiltrate) Independent Historian Clinical information obtained from an independent historian. History obtained from or confirmed by: Spouse Prescription Management I considered prescription management with: Antibiotic (no evidence of pneumonia) Discharge Plan Discharge Clinical Impression: Acute bronchospasm Patient Disposition: Home, Self-Care Instructions: Bronchospasm (ED) Prescriptions: New albuterol sulfate 90 mcg/actuation HFA aerosol inhaler 2 puff inhalation 6XD PRN (Reason: shortness of breath or wheezing) Qty: 8.5 0RF prednisone 20 mg tablet 60 mg PO DAILY Qty: 12 0RF No Action ibuprofen 600 mg tablet 600 mg PO Q6H PRN (Reason: pain) Qty: 20 0RF cyclobenzaprine 10 mg tablet 10 mg PO TID PRN (Reason: muscle spasm) Qty: 10 0RF benzonatate 200 mg capsule 200 mg PO TID PRN (Reason: cough) Qty: 20 0RF fluticasone propionate [Flonase Allergy Relief] 50 mcg/actuation spray,suspension 2 spray intranasal DAILY Qty: 16 0RF Rx Instructions: administer into each nostril cefuroxime axetil 500 mg tablet 500 mg PO Q12H 5 Days Qty: 10 0RF morphine 15 mg tablet 15 mg PO Q4-6H PRN (Reason: pain) Qty: 10 0RF Rx Instructions: The patient may ask for partial fill; Partial Fill upon patient request. ondansetron 4 mg tablet,disintegrating 4 mg PO Q6-8H PRN (Reason: nausea and vomiting) Qty: 14 0RF levofloxacin 750 mg tablet 750 mg PO DAILY lisinopril 40 mg tablet 40 mg PO DAILY Jardiance 10 mg tablet 10 mg PO QAM (DME) lancets [TRUEplus Lancets] 33 gauge misc See Rx Instructions .ROUTE TID Qty: 100 Rx Instructions: As directed alcohol swabs [Alcohol Prep Pads] Pads, Medicated 0 pad topical TID levothyroxine 200 mcg tablet 200 mcg PO DAILY ferrous sulfate [FeroSul] 325 mg (65 mg iron) tablet 325 mg PO BID pantoprazole 40 mg tablet,delayed release (DR/EC) 40 mg PO BID amitriptyline 10 mg tablet 10 mg PO BEDTIME amlodipine 5 mg tablet 5 mg PO DAILY chlorthalidone 25 mg tablet 25 mg PO DAILY (DME) FreeStyle Lite Strips Strip See Rx Instructions .ROUTE TID Qty: 10 Rx Instructions: As directed cyanocobalamin (vitamin B-12) 1,000 mcg tablet 1,000 mcg PO DAILY propranolol 80 mg tablet 80 mg PO BEDTIME metformin 500 mg tablet 500 mg PO BID albuterol sulfate [ProAir HFA] 90 mcg/actuation HFA aerosol inhaler 2 puff inhalation QID PRN docusate sodium 100 mg capsule 100 mg PO BEDTIME Qty: 90 3RF sennosides [Natural Senna Laxative] 8.6 mg tablet 17.2 mg PO BEDTIME Qty: 60 3RF hydrocortisone [Proctosol HC] 2.5 % cream with perineal applicator 1 appl [place] BID-QID PRN (Reason: hemorrhoids) Qty: 30 2RF Referrals: Choco Shaikh MD [Primary Care Provider] - 5 days
[2023-06-03 14:01] VITALS: BP 207/95; PULSE 82; RESP 20; TEMP 36.7; O2SAT 99; BMI 39.5
[2023-06-03 14:52] LABS: COVID-19 Test Negative (Negative); IDNOW Serial# BCCEAD1C
[2023-06-03 14:55] LABS: IDNOW Serial# 08D9AD1C; Influenza A Negative (Negative); Influenza B2 Negative (Negative)
[2023-06-03 15:43] VITALS: BP 182/85; PULSE 73; RESP 20; O2SAT 100
[2023-06-03 16:15] LABS: MANUAL DIFF FLAG NO
[2023-06-03 16:19] LABS: Basophils Percent Auto 0.7 % (0-2); Eosinophils Absolute Auto 0.3 X10*3/uL (0.0-0.4); Eosinophils Percent Auto 4.7 % (0-4); Hematocrit 42.9 % (37.0-47.0); Hemoglobin 13.5 g/dl (12.0-16.0); Imm Gran Abs Auto 0.02 X10*3/uL (0.00-0.03); Imm Gran Pct Auto 0.4 % (0.0-0.4); Lymphocytes Absolute Auto 1.6 X10*3/uL (1.2-4.9); Lymphocytes Percent Auto 28.3 % (20-40); Mean Corpuscular HGB Conc 31.5 g/dl (31.0-35.0); Mean Corpuscular Hemoglobin 27.2 pg (27.0-33.0); Mean Corpuscular Volume 86.5 fL (80.0-98.0); Mean Platelet Volume 10.7 fL (9.4-12.3); Monocytes Absolute Auto 0.5 X10*3/uL (0.1-1.2); Monocytes Percent Auto 9.3 % (2-11); Neutrophils Absolute Auto 3.1 x10*3/uL (2.0-8.3); Neutrophils Percent Auto 56.6 % (45-73); Platelet Count 175 X10*3/uL (160-400); Red Blood Count 4.96 X10*6/uL (4.20-5.50); Red Cell Distribution Width 13.2 % (11.0-16.0); White Blood Count 5.5 X10*3/uL (4.8-10.8)
[2023-06-03] MEDS: predniSONE 20 MG TABLET 60 MG PO (16:27)
[2023-06-03] MEDS: lisinopriL 40 MG TABLET PO (16:27)
[2023-06-03] MEDS: amLODIPine Besylate 5 MG TABLET PO (16:27)
[2023-06-03 16:29] VITALS: BP 187/84; PULSE 68; RESP 16; TEMP 36.8; O2SAT 100
[2023-06-03 16:30] LABS: Alanine Aminotransferase 27 U/L (0-31); Albumin Level 4.1 g/dL (3.5-5.0); Alkaline Phosphatase 112 U/L (39-117); Anion Gap 10 (12-20); Aspartate Amino Transferase 19 U/L (5-31); Bilirubin Total 0.3 mg/dL (0.0-1.0); Blood Urea Nitrogen 11 mg/dL (9-16); Calcium 9.2 mg/dL (8.4-10.2); Carbon Dioxide 29 mmol/L (22-29); Chloride 107 mmol/L (96-108); Creatinine Clr Calc Pharmacy 96.1; Estimated Glomerular Filt Rate > 60; Glucose Random 138 mg/dL (60-115); Sodium 142 mmol/L (135-145); Total Protein 7.1 g/dL (6.5-8.0)
[2023-06-03 16:36] LABS: Troponin-I High Sensitivity < 2.7 ng/L (<3.5-17.0)
[2023-06-03] MEDS: Albuterol/Iprat 2.5/0.5MG 3 ML AMPUL.NEB INHALE (16:38)
[2023-06-03 16:39] VITALS: PULSE 66; RESP 18; O2SAT 98
[2023-06-03 17:45] VITALS: BP 188/92; PULSE 75; RESP 16; TEMP 36.8; O2SAT 100
== END 2023-06-03 18:12 | disposition home or self-care (01) ==
PROVIDERS: Registered Nurse Emergency; Emergency Provider Emergency Medicine; PCP Internal Medicine
DX: J98.01 Acute bronchospasm (principal); R07.89 Other chest pain; R50.9 Fever, unspecified; R05.9 Cough, unspecified; Z20.822 Contact with and (suspected) exposure to COVID-19; Z20.828 Contact with and (suspected) exposure to other viral communicable diseases; Z79.899 Other long term (current) drug therapy
CPT/HCPCS: 71046; 80053; 84484; 85025; 87502; 87635; 93005; 94640; 99284

== ENCOUNTER 2023-08-15 12:03 | Outpatient (REF) | payer OTHER, SELFPAY ==
[2023-08-15 14:19] LABS: MANUAL DIFF FLAG NO
[2023-08-15 14:33] LABS: Basophils Absolute Auto 0.1 X10*3/uL (0.0-0.2); Basophils Percent Auto 0.8 % (0-2); Eosinophils Absolute Auto 0.2 X10*3/uL (0.0-0.4); Eosinophils Percent Auto 2.6 % (0-4); Hematocrit 41.4 % (37.0-47.0); Hemoglobin 13.5 g/dl (12.0-16.0); Imm Gran Abs Auto 0.02 X10*3/uL (0.00-0.03); Imm Gran Pct Auto 0.3 % (0.0-0.4); Lymphocytes Absolute Auto 1.9 X10*3/uL (1.2-4.9); Lymphocytes Percent Auto 29.3 % (20-40); Mean Corpuscular HGB Conc 32.6 g/dl (31.0-35.0); Mean Corpuscular Hemoglobin 28.5 pg (27.0-33.0); Mean Corpuscular Volume 87.5 fL (80.0-98.0); Mean Platelet Volume 11.6 fL (9.4-12.3); Monocytes Absolute Auto 0.5 X10*3/uL (0.1-1.2); Monocytes Percent Auto 7.4 % (2-11); Neutrophils Absolute Auto 3.9 x10*3/uL (2.0-8.3); Neutrophils Percent Auto 59.6 % (45-73); Platelet Count 203 X10*3/uL (160-400); Red Blood Count 4.73 X10*6/uL (4.20-5.50); Red Cell Distribution Width 13.2 % (11.0-16.0); White Blood Count 6.5 X10*3/uL (4.8-10.8)
[2023-08-15 14:59] LABS: Alanine Aminotransferase 27 U/L (0-31); Albumin Level 4.1 g/dL (3.5-5.0); Alkaline Phosphatase 127 U/L (39-117); Anion Gap 11 (12-20); Aspartate Amino Transferase 21 U/L (5-31); Bilirubin Total 0.4 mg/dL (0.0-1.0); Blood Urea Nitrogen 12 mg/dL (9-16); Calcium 8.8 mg/dL (8.4-10.2); Carbon Dioxide 28 mmol/L (22-29); Chloride 104 mmol/L (96-108); Cholesterol 133 mg/dL (<200); Estimated Glomerular Filt Rate > 60; Glucose Random 275 mg/dL (60-115); HDL Cholesterol 38 mg/dL (>40); Iron 43 mcg/dL (30-160); LDL Cholesterol Calculated 74 mg/dL (<100); Percent Iron Saturation 23 % (15-50); Potassium 3.8 mmol/L (3.3-5.1); Sodium 139 mmol/L (135-145); Total Iron Binding Capacity 184 mcg/dL (228-428); Triglycerides 108 mg/dL (<150); Unsaturated Iron Binding 141 ug/dL
[2023-08-15 15:02] LABS: TSH reflex Free T4 4.19 uIU/mL (0.32-4.0)
[2023-08-15 15:38] LABS: Free T4 (Free Thyroxine) 0.96 ng/dL (0.71-1.85)
== END 2023-08-15 12:04 | disposition home or self-care (01) ==
LOC: HO.CHCLDS 12:03
PROVIDERS: Visit Provider Internal Medicine
DX: E11.65 Type 2 diabetes mellitus with hyperglycemia (principal); D50.0 Iron deficiency anemia secondary to blood loss (chronic)
CPT/HCPCS: 36415; 80053; 80061; 83540; 84439; 84443; 85025

== ENCOUNTER 2023-08-23 08:31 | Emergency (ER) | payer OTHER, SELFPAY ==
--- NOTE | ~2023-08-23 | CT_ITS ---
EXAMINATION: CT abdomen pelvis w IV con CLINICAL INFORMATION: Reason for Exam epigastric pain, vomiting, hx o perforated ulcer COMPARISON: Multiple prior CTs most recent 10/21/2022 TECHNIQUE: Multidetector volumetric imaging was performed from the superior aspect of the liver through the pubic symphysis 85 mL of Omnipaque 350 injected Sagittal and coronal reformatted images were obtained on the technologist's workstation. This CT examination was performed using dose optimization techniques as appropriate, variously including the following: *Automated exposure control *Adjustment of mA and/or kV according to patient size (this includes techniques or standardized protocols for targeted exams where dose is matched to indication/reason for exam; i.e. extremities or head) *Use of iterative reconstruction technique DLP: 800 mGy-cm FINDINGS: LOWER THORAX: Included lung bases are clear. HEPATOBILIARY: Diffusely hypodense liver suggesting hepatic steatosis. No CT evidence of focal liver lesion. GALLBLADDER: Has been surgically removed, surgical clips in the gallbladder bed. SPLEEN: Spleen is normal in size. PANCREAS: No focal mass or ductal dilatation. STOMACH AND GASTROINTESTINAL TRACT: Stomach is grossly unremarkable. There is no bowel distention or thickening. No CT evidence of appendicitis. ADRENALS: No adrenal nodules. KIDNEYS/URETERS: No hydronephrosis, stones or solid mass lesions. URINARY BLADDER: Partially decompressed. PELVIC VISCERA: Unremarkable PERITONEUM: No free air or fluid. LYMPH NODES: No lymphadenopathy. VASCULAR:Abdominal aorta normal in size, no aneurysm found. BONES, ABDOMINAL WALL AND SOFT TISSUES: Age-appropriate changes of the spine and skeletal system, no destructive osteolytic or osteosclerotic bone lesion found CT/CT abdomen pelvis w IV con IMPRESSION: * No CT evidence of acute intra-abdominal process to explain patient's pain symptoms. * Diffusely hypodense liver suggesting hepatic steatosis. * Surgical clips from prior cholecystectomy.
[2023-08-23 08:44] VITALS: BP 141/72; PULSE 79; RESP 18; TEMP 36.6; O2SAT 96; BMI 39.5
--- NOTE | 2023-08-23 09:12 | ED_ITS ---
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 She has also been dealing with sinus congestion and yellow discharge that is making her feel sick to her stomach. This AM she had so much mucous she tried to swallow and it made her vomit and she noted brb no clots. No lower GIB symptoms. She tells me she has had surgery x 2 in the past for ?perforation ulcers as she has laparascopic scars MD elicited complaint: abdominal pain Pertinent past history: other (PUD) Onset (ago): day(s) (5) Pain Consistency: constant Location: epigastric Severity: moderate Quality: stabbing Radiation: none Migration to: no migration Exacerbating factors: eating Relieving factors: nothing Context: other (exacerbated by URI and mucous) Associated symptoms: nausea, vomiting, hematemesis and other (sinus congestion) Related Data Home Medications Medication Instructions Recorded Confirmed albuterol sulfate 90 mcg/actuation 2 puff inhalation QID PRN 07/02/22 aerosol inhaler (ProAir HFA) alcohol swabs (Alcohol Prep Pads) 0 pad topical TID 07/02/22 amitriptyline 10 mg tablet 10 mg PO BEDTIME 07/02/22 amlodipine 5 mg tablet 5 mg PO DAILY 07/02/22 blood sugar diagnostic (FreeStyle #10 ea 07/02/22 Lite Strips) chlorthalidone 25 mg tablet 25 mg PO DAILY 07/02/22 cyanocobalamin (vitamin B-12) 1,000 mcg PO DAILY 07/02/22 1,000 mcg tablet empagliflozin 10 mg tablet 10 mg PO QAM 07/02/22 (Jardiance) ferrous sulfate 325 mg (65 mg 325 mg PO BID 07/02/22 iron) tablet (FeroSul) lancets 33 gauge (TRUEplus Lancets) #100 ea 07/02/22 levofloxacin 750 mg tablet 750 mg PO DAILY 07/02/22 levothyroxine 200 mcg tablet 200 mcg PO DAILY 07/02/22 lisinopril 40 mg tablet 40 mg PO DAILY 07/02/22 metformin 500 mg tablet 500 mg PO BID 07/02/22 pantoprazole 40 mg tablet,delayed 40 mg PO BID 07/02/22 release propranolol 80 mg tablet 80 mg PO BEDTIME 07/02/22 Previous Rx's Medication Instructions Recorded ibuprofen 600 mg tablet 600 mg PO Q6H PRN pain #20 tabs 09/16/20 cyclobenzaprine 10 mg tablet 10 mg PO TID PRN muscle spasm #10 06/03/21 tabs benzonatate 200 mg capsule 200 mg PO TID PRN cough #20 caps 12/16/21 fluticasone propionate 50 2 spray intranasal DAILY #16 grams 12/16/21 mcg/actuation nasal spray,suspension (Flonase Allergy Relief) docusate sodium 100 mg capsule 100 mg PO BEDTIME #90 caps 07/02/22 hydrocortisone 2.5 % topical cream 1 appl [place] BID-QID PRN hemorrhoids 07/02/22 with perineal applicator #30 grams (Proctosol HC) sennosides 8.6 mg tablet (Natural 17.2 mg (2 x 8.6 mg) PO BEDTIME 07/02/22 Senna Laxative) constipation #60 tabs cefuroxime axetil 500 mg tablet 500 mg PO Q12H 5 days #10 tabs 10/21/22 morphine 15 mg immediate release 15 mg PO Q4-6H PRN pain #10 tabs 10/21/22 tablet ondansetron 4 mg disintegrating 4 mg PO Q6-8H PRN nausea and 10/21/22 tablet vomiting #14 tabs albuterol sulfate 90 mcg/actuation 2 puff inhalation 6XD PRN 06/03/23 aerosol inhaler shortness of breath or wheezing #8.5 grams prednisone 20 mg tablet 60 mg (3 x 20 mg) PO DAILY #12 tabs 06/03/23 azithromycin 250 mg tablet See Rx Instructions PO .COMPLEX #6 08/23/23 tabs morphine 15 mg immediate release 15 mg PO TID PRN pain #10 tabs 08/23/23 tablet ondansetron 4 mg disintegrating 4 mg PO Q8H PRN nausea and 08/23/23 tablet vomiting #20 tabs sucralfate 100 mg/mL oral 5 ml PO QID 7 days #140 mL 08/23/23 suspension Allergies Allergy/AdvReac Type Severity Reaction Status Date / Time penicillin V Allergy Unknown shortness Verified 08/23/23 08:44 of breath tuberculin, purified protein Allergy Unknown RED, RASH Verified 08/23/23 08:44 deriva [TUBERCULIN,PURIF.PROT.DERIV.] TB Syringe 1 ML Allergy Unknown Unknown Uncoded 08/23/23 08:44 Review of Systems Review of Systems Constitutional : No Weight loss, No Fever, No Chills ENT/Mouth : No sore throat, No Rhinorrhea, pos sinus pression and congestion Eyes: No Swelling, No Redness Cardiovascular : No Chest Pain, No SOB, NoEdema Respiratory : No Cough, No Sputum, No Wheezing Gastrointestinal : Positive Nausea, Positive Vomiting, no Diarrhea, positive abdominal Pain, No Hematochezia, No Melena Genitourinary : No Dysuria, No Urinary Frequency, No Hematuria, No Urgency Musculoskeletal : No joint pain, No Myalgias, No Joint Swelling Skin : No Skin Lesions, No rash Neuro : No Weakness, No Numbness, No Dizziness, No Headache Psych : No Anxiety/Panic, No Depression Heme/Lymph: No Bruising, No Lymphadenopathy Endocrine : No Polyuria, No Polydipsia All other systems reviewed and are negative. [facility], LAT[facility] Past Medical History Attestation statement: The following information was validated with the patient. Source: old records reviewed Medical History Anemia Hypertension Social History Social History (Updated 08/23/23 @ 09:17 by Sunin Garrido DO) Patient Tobacco Use Status: Never used Tobacco Smoked in Last 30 Days: No Use of substances other than those prescribed or required for medical reasons: No Advance Directives: No Patient : No Physical Exam ED Vital Signs: Vital Signs - 24 hr 08/23/23 08:44 08/23/23 10:02 08/23/23 12:22 Temperature 97.9 F Pulse Rate 79 73 63 Respiratory Rate 18 20 20 Blood Pressure 141/72 H 117/65 111/64 Pulse Oximetry 96 97 95 Oxygen Delivery Method Room Air Room Air Room Air BMI result Body Mass Index 39.5 Appearance: Alert. Oriented X3. No acute distress. Eyes: Pupils equal, round and reactive to light. ENT: Pharynx normal. Neck: Normal inspection. Neck supple. CVS: Normal heart rate and rhythm. Pulses normal. Respiratory: No respiratory distress. Breath sounds normal. Abdomen: Soft and mild epigastric ttp no rebound or guarrding Skin: Skin warm and dry. Normal skin color. Normal skin turgor. Extremities: No lower extremity edema. No calf ttp Neuro: Oriented X 3. No motor deficit. No sensory deficit. Medical Decision Making Medical Decision Making [facility] Narrative: 58 yo female with PMH of GERD, anemia, HTN, PUD with hx of ?perforation has lap scars at this time has 2 complaints - sinusitis complaints - no concern for deeper [employer] infection and also epigastric pain but denies triggers of her known PUD. No nsaids or food triggers did vomit this AM and noted blood but no clots and no lower GIB symptoms. At this time has had pain x 5 days. Will obtain basic labs, CT scan for perforation, IV morphine for pain, viral panel. Differential Diagnosis Differential Diagnoses: The differential diagnosis associated with the presentation includes gastritis, PUD, sinusitis, pancreatitis Admission/Observation Consideration of admission/observation: Escalation of care including admission/observation considered labs, CT scan reassuring H/H stable Lab Data [facility] Lab Attestation statement: I reviewed the patient's lab results. 08/23/23 09:55 08/23/23 09:55 Labs: Lab Results 08/23/23 Range/Units 09:55 WBC 8.2 (4.8-10.8) X10*3/uL RBC 5.06 (4.20-5.50) X10*6/uL Hgb 14.0 (12.0-16.0) g/dl Hct 43.5 (37.0-47.0) % MCV 86.0 (80.0-98.0) fL MCH 27.7 (27.0-33.0) pg MCHC 32.2 (31.0-35.0) g/dl RDW 13.4 (11.0-16.0) % Plt Count 219 (160-400) X10*3/uL MPV 10.0 (9.4-12.3) fL Immature Gran % (Auto) 0.5 H (0.0-0.4) % Neut % (Auto) 62.5 (45-73) % Lymph % (Auto) 26.6 (20-40) % [place] % (Auto) 8.4 (2-11) % Eos % (Auto) 1.5 (0-4) % Baso % (Auto) 0.5 (0-2) % Lymph # (Auto) 2.2 (1.2-4.9) X10*3/uL [place] # (Auto) 0.7 (0.1-1.2) X10*3/uL Eos # (Auto) 0.1 (0.0-0.4) X10*3/uL Baso # (Auto) 0.0 (0.0-0.2) X10*3/uL Abs Immat Gran (auto) 0.04 H (0.00-0.03) X10*3/uL Absolute Neuts (auto) 5.2 (2.0-8.3) x10*3/uL Absolute Nucleated RBC 0.000 (0.0-0.012) X10*3/uL Nucleated RBC % (auto) 0.0 (0.0-0.2) /100WBC Sodium 138 (135-145) mmol/L Potassium 3.7 (3.3-5.1) mmol/L Chloride 102 (96-108) mmol/L Carbon Dioxide 27 (22-29) mmol/L Anion Gap 13 (12-20) BUN 19 H (9-16) mg/dL Creatinine 0.87 (0.5-1.4) mg/dL Estim Creat Clear Calc 83.9 Estimated GFR > 60 Random Glucose 144 H (60-115) mg/dL Calcium 9.1 (8.4-10.2) mg/dL Magnesium 1.7 (1.6-2.6) mg/dL Total Bilirubin 0.5 (0.0-1.0) mg/dL Direct Bilirubin 0.2 (0.0-0.5) mg/dL AST 23 (5-31) U/L ALT 34 H (0-31) U/L Alkaline Phosphatase 108 (39-117) U/L Total Protein 7.3 (6.5-8.0) g/dL Albumin 4.2 (3.5-5.0) g/dL Lipase 10 (8-78) U/L Influenza Type A (PCR) NEGATIVE (Negative) Influenza Type B (PCR) NEGATIVE (Negative) RSV RNA Qual (PCR) NEGATIVE (Negative) SARS-CoV-2 RNA (RT-PCR) NEGATIVE (Negative) Independent Interpretation I performed an independent interpretation of an: EKG and CT Scan (no perforation) Interpretation: Rate: 68 Rhythm: NSR [place]: normal Normal P waves. Normal PEEWEE. Normal QRS complex. ST T wave : nonspecific ST T wave changes , no HARSHIL qTC: normal prior studies: no acute ischemia The study has been interpreted contemporaneously by me. . Radiology Impression Discussion of test interpretation with radiology: I have reviewed the radiologist's reading. Independent Historian Clinical information obtained from an independent historian. History obtained from or confirmed by: Spouse External Record Review External record reviewed: Inpatient record Prescription Management I considered prescription management with: Pain Medication, Antibiotic and Other Medications Administered Discontinued Medications Generic Name Dose Route Start Last Admin Trade Name Freq PRN Reason Stop Dose Admin Famotidine 20 mg 08/23/23 09:31 08/23/23 10:00 Famotidine/Pf 20 Mg/2 Ml Vial IVPUSH 08/23/23 09:32 20 mg ONCE ONE Administration Sodium Chloride 1,000 mls @ 999 mls/hr 08/23/23 09:45 08/23/23 12:11 Ns IVCONT 08/23/23 10:45 Infused .Q1H1M CARMELINA Infusion Iohexol 100 ml 08/23/23 11:09 08/23/23 11:10 Iohexol 350 Mg/Ml 100 Ml Infus..Btl IV 08/23/23 11:10 85 ml ONCE ONE Administration Morphine Sulfate 4 mg 08/23/23 09:31 08/23/23 10:00 Morphine Sulfate 4 Mg/Ml Cartridge IVPUSH 08/23/23 09:32 4 mg ONCE ONE Administration Protocol Ondansetron HCl 4 mg 08/23/23 09:31 08/23/23 10:01 Ondansetron Hcl 4 Mg/2 Ml Vial IVPUSH 08/23/23 09:32 4 mg ONCE ONE Administration Discharge Plan Discharge Clinical Impression: Abdominal pain Qualifiers: Abdominal location: epigastric Qualified Code(s): R10.13 - Epigastric pain Sinusitis Qualifiers: Sinusitis location: maxillary Chronicity: acute Recurrence: non-recurrent Q ualified Code(s): J01.00 - Acute maxillary sinusitis, unspecified Gastritis Qualifiers: Gastritis type: unspecified gastritis Chronicity: acute Gastritis bleeding: w ith bleeding Qualified Code(s): K29.01 - Acute gastritis with bleeding Patient Disposition: Home, Self-Care Instructions: Gastritis (ED), Sinusitis (ED), Abdominal Pain (ED), Hematemesis (ED) Additional Instructions: return for worsening symptoms, fevers, vomiting, increased bleeding, weakness, black or bloody stools, or any other concerns. avoid motrin, ibuprofen, aleve. take all your medications as prescribed. Regrese si los s?ntomas empeoran, fiebre, v?mitos, aumento del sangrado, debilidad, heces negras o con rosalina o cualquier otra inquietud. Evite motrin, ibuprofeno, aleve. tome todos kailee medicamentos seg?n lo recetado. Prescriptions: New azithromycin 250 mg tablet See Rx Instructions .ROUTE .COMPLEX Qty: 6 0RF Rx Instructions: For 250 mg dose pack: take 500 mg today (day 1), then 250 mg for 4 days (days 2-5) morphine 15 mg tablet 15 mg PO TID PRN (Reason: pain) Qty: 10 0RF Rx Instructions: partial fill okay; Partial Fill upon patient request. sucralfate 100 mg/mL suspension 5 ml PO QID 7 Days Qty: 140 0RF Rx Instructions: swish in mouth and swallow; use after food/drink ondansetron 4 mg tablet,disintegrating 4 mg PO Q8H PRN (Reason: nausea and vomiting) Qty: 20 0RF No Action ibuprofen 600 mg tablet 600 mg PO Q6H PRN (Reason: pain) Qty: 20 0RF cyclobenzaprine 10 mg tablet 10 mg PO TID PRN (Reason: muscle spasm) Qty: 10 0RF benzonatate 200 mg capsule 200 mg PO TID PRN (Reason: cough) Qty: 20 0RF fluticasone propionate [Flonase Allergy Relief] 50 mcg/actuation spray,suspension 2 spray intranasal DAILY Qty: 16 0RF Rx Instructions: administer into each nostril cefuroxime axetil 500 mg tablet 500 mg PO Q12H 5 Days Qty: 10 0RF morphine 15 mg tablet 15 mg PO Q4-6H PRN (Reason: pain) Qty: 10 0RF Rx Instructions: The patient may ask for partial fill; Partial Fill upon patient request. ondansetron 4 mg tablet,disintegrating 4 mg PO Q6-8H PRN (Reason: nausea and vomiting) Qty: 14 0RF albuterol sulfate 90 mcg/actuation HFA aerosol inhaler 2 puff inhalation 6XD PRN (Reason: shortness of breath or wheezing) Qty: 8.5 0RF prednisone 20 mg tablet 60 mg PO DAILY Qty: 12 0RF levofloxacin 750 mg tablet 750 mg PO DAILY lisinopril 40 mg tablet 40 mg PO DAILY Jardiance 10 mg tablet 10 mg PO QAM (DME) lancets [TRUEplus Lancets] 33 gauge misc See Rx Instructions .ROUTE TID Qty: 100 Rx Instructions: As directed alcohol swabs [Alcohol Prep Pads] Pads, Medicated 0 pad topical TID levothyroxine 200 mcg tablet 200 mcg PO DAILY ferrous sulfate [FeroSul] 325 mg (65 mg iron) tablet 325 mg PO BID pantoprazole 40 mg tablet,delayed release (DR/EC) 40 mg PO BID amitriptyline 10 mg tablet 10 mg PO BEDTIME amlodipine 5 mg tablet 5 mg PO DAILY chlorthalidone 25 mg tablet 25 mg PO DAILY (DME) FreeStyle Lite Strips Strip See Rx Instructions .ROUTE TID Qty: 10 Rx Instructions: As directed cyanocobalamin (vitamin B-12) 1,000 mcg tablet 1,000 mcg PO DAILY propranolol 80 mg tablet 80 mg PO BEDTIME metformin 500 mg tablet 500 mg PO BID albuterol sulfate [ProAir HFA] 90 mcg/actuation HFA aerosol inhaler 2 puff inhalation QID PRN docusate sodium 100 mg capsule 100 mg PO BEDTIME Qty: 90 3RF sennosides [Natural Senna Laxative] 8.6 mg tablet 17.2 mg PO BEDTIME Qty: 60 3RF hydrocortisone [Proctosol HC] 2.5 % cream with perineal applicator 1 appl [place] BID-QID PRN (Reason: hemorrhoids) Qty: 30 2RF Print Language: [place]
--- NOTE | 2023-08-23 09:33 | ECG_ITS ---
Test Reason : EPIGASTRIC PAIN Blood Pressure : / mmHG Vent. Rate : 068 BPM Atrial Rate : 068 BPM P-R Int : 186 ms QRS Dur : 094 ms QT Int : 420 ms P-R-T Axes : 011 043 020 degrees QTc Int : 446 ms Normal sinus rhythm Nonspecific T wave abnormality Abnormal ECG When compared with ECG of 03-JUN-2023 13:57, No significant change was found Referred By: Sunni Garrido Electronically Signed By:MINA VARGAS MD
[2023-08-23 10:00] LABS: MANUAL DIFF FLAG NO
[2023-08-23] MEDS: 0.9 % Sodium Chloride 1,000 ML 999 ML IVCONT (10:00)
[2023-08-23] MEDS: Morphine Sulfate 4 MG/ML CARTRIDGE IVPUSH (10:00)
[2023-08-23] MEDS: Famotidine/PF 20 MG/2 ML VIAL IVPUSH (10:00)
[2023-08-23 10:01] LABS: Basophils Percent Auto 0.5 % (0-2); Eosinophils Absolute Auto 0.1 X10*3/uL (0.0-0.4); Eosinophils Percent Auto 1.5 % (0-4); Hematocrit 43.5 % (37.0-47.0); Imm Gran Abs Auto 0.04 X10*3/uL (0.00-0.03); Imm Gran Pct Auto 0.5 % (0.0-0.4); Lymphocytes Absolute Auto 2.2 X10*3/uL (1.2-4.9); Lymphocytes Percent Auto 26.6 % (20-40); Mean Corpuscular HGB Conc 32.2 g/dl (31.0-35.0); Mean Corpuscular Hemoglobin 27.7 pg (27.0-33.0); Monocytes Absolute Auto 0.7 X10*3/uL (0.1-1.2); Monocytes Percent Auto 8.4 % (2-11); Neutrophils Absolute Auto 5.2 x10*3/uL (2.0-8.3); Neutrophils Percent Auto 62.5 % (45-73); Platelet Count 219 X10*3/uL (160-400); Red Blood Count 5.06 X10*6/uL (4.20-5.50); Red Cell Distribution Width 13.4 % (11.0-16.0); White Blood Count 8.2 X10*3/uL (4.8-10.8)
[2023-08-23] MEDS: ondansetron HCL 4 MG/2 ML VIAL IVPUSH (10:01)
[2023-08-23 10:02] VITALS: BP 117/65; PULSE 73; RESP 20; O2SAT 97
[2023-08-23 10:17] LABS: Alanine Aminotransferase 34 U/L (0-31); Albumin Level 4.2 g/dL (3.5-5.0); Alkaline Phosphatase 108 U/L (39-117); Anion Gap 13 (12-20); Aspartate Amino Transferase 23 U/L (5-31); Bilirubin Direct 0.2 mg/dL (0.0-0.5); Bilirubin Total 0.5 mg/dL (0.0-1.0); Blood Urea Nitrogen 19 mg/dL (9-16); Calcium 9.1 mg/dL (8.4-10.2); Carbon Dioxide 27 mmol/L (22-29); Chloride 102 mmol/L (96-108); Creatinine Clr Calc Pharmacy 83.9; Estimated Glomerular Filt Rate > 60; Glucose Random 144 mg/dL (60-115); Lipase 10 U/L (8-78); Magnesium 1.7 mg/dL (1.6-2.6); Potassium 3.7 mmol/L (3.3-5.1); Sodium 138 mmol/L (135-145); Total Protein 7.3 g/dL (6.5-8.0)
[2023-08-23 11:03] LABS: Influenza A PCR NEGATIVE (Negative); Influenza B PCR NEGATIVE (Negative); Resp Syncy Virus RNA Qual PCR NEGATIVE (Negative); SARS COV2 PCR INHOUSE NEGATIVE (Negative)
[2023-08-23] MEDS: iohexoL 350 MG/ML 100 ML INFUS..BTL IV (11:10)
[2023-08-23 12:22] VITALS: BP 111/64; PULSE 63; RESP 20; O2SAT 95
[2023-08-23 13:20] VITALS: BP 110/69; PULSE 61; RESP 18
== END 2023-08-23 13:23 | disposition home or self-care (01) ==
PROVIDERS: Emergency Provider Emergency Medicine; PCP Internal Medicine
DX: K29.01 Acute gastritis with bleeding (principal); J01.00 Acute maxillary sinusitis, unspecified; R10.13 Epigastric pain; K92.0 Hematemesis; Z20.822 Contact with and (suspected) exposure to COVID-19; Z20.828 Contact with and (suspected) exposure to other viral communicable diseases; I10 Essential (primary) hypertension; Z79.899 Other long term (current) drug therapy
CPT/HCPCS: 0241U; 36415; 74177; 80048; 80076; 83690; 83735; 85025; 93005; 96361; 96374; 96375; 99284; 99285; J2270; J2405; Q9967

== ENCOUNTER 2023-09-19 07:06 | Emergency (ER) | payer OTHER, SELFPAY ==
--- NOTE | ~2023-09-19 | XR_ITS ---
EXAMINATION: XR CHEST CLINICAL INFORMATION: SOB. COMPARISON: None available. TECHNIQUE: Frontal view of the chest was obtained. FINDINGS: No significant abnormality is noted involving the heart, lungs, mediastinum, bony thorax or soft tissues. XR/XR chest 1V IMPRESSION: Unremarkable chest examination.
[2023-09-19 07:11] VITALS: BP 158/98; PULSE 95; RESP 20; TEMP 36.6; O2SAT 98; BMI 37.1
[2023-09-19 07:34] VITALS: BP 158/90; PULSE 86; RESP 20; TEMP 36.9; O2SAT 96
--- NOTE | 2023-09-19 07:51 | ED_ITS ---
HPI - General Adult General Chief complaint: Upper Respiratory Symptoms Stated complaint: Asthma Diff Breathing Sore Throat Time Seen by Provider: 09/19/23 07:39 Source: patient Mode of arrival: ambulatory Limitations: no limitations History of Present Illness HPI narrative: 58-year-old female history of asthma, obesity presenting to the emergency department fatigue, malaise, myalgias, chest pressure/congestion, shortness of breath, wheezing since yesterday. Denies sick contacts. Reports this all started suddenly. She tells me she thinks this is asthma. Denies fevers, chills, nausea, vomiting, abdominal pain, diarrhea, headache, vision changes, dizziness and weakness. Related Data Home Medications Medication Instructions Recorded Confirmed albuterol sulfate 90 mcg/actuation 2 puff inhalation QID PRN 07/02/22 aerosol inhaler (ProAir HFA) alcohol swabs (Alcohol Prep Pads) 0 pad topical TID 07/02/22 amitriptyline 10 mg tablet 10 mg PO BEDTIME 07/02/22 amlodipine 5 mg tablet 5 mg PO DAILY 07/02/22 blood sugar diagnostic (FreeStyle #10 ea 07/02/22 Lite Strips) chlorthalidone 25 mg tablet 25 mg PO DAILY 07/02/22 cyanocobalamin (vitamin B-12) 1,000 mcg PO DAILY 07/02/22 1,000 mcg tablet empagliflozin 10 mg tablet 10 mg PO QAM 07/02/22 (Jardiance) ferrous sulfate 325 mg (65 mg 325 mg PO BID 07/02/22 iron) tablet (FeroSul) lancets 33 gauge (TRUEplus Lancets) #100 ea 07/02/22 levofloxacin 750 mg tablet 750 mg PO DAILY 07/02/22 levothyroxine 200 mcg tablet 200 mcg PO DAILY 07/02/22 lisinopril 40 mg tablet 40 mg PO DAILY 07/02/22 metformin 500 mg tablet 500 mg PO BID 07/02/22 pantoprazole 40 mg tablet,delayed 40 mg PO BID 07/02/22 release propranolol 80 mg tablet 80 mg PO BEDTIME 07/02/22 Previous Rx's Medication Instructions Recorded ibuprofen 600 mg tablet 600 mg PO Q6H PRN pain #20 tabs 09/16/20 cyclobenzaprine 10 mg tablet 10 mg PO TID PRN muscle spasm #10 06/03/21 tabs benzonatate 200 mg capsule 200 mg PO TID PRN cough #20 caps 12/16/21 fluticasone propionate 50 2 spray intranasal DAILY #16 grams 12/16/21 mcg/actuation nasal spray,suspension (Flonase Allergy Relief) docusate sodium 100 mg capsule 100 mg PO BEDTIME #90 caps 07/02/22 hydrocortisone 2.5 % topical cream 1 appl [place] BID-QID PRN hemorrhoids 07/02/22 with perineal applicator #30 grams (Proctosol HC) sennosides 8.6 mg tablet (Natural 17.2 mg (2 x 8.6 mg) PO BEDTIME 07/02/22 Senna Laxative) constipation #60 tabs cefuroxime axetil 500 mg tablet 500 mg PO Q12H 5 days #10 tabs 10/21/22 morphine 15 mg immediate release 15 mg PO Q4-6H PRN pain #10 tabs 10/21/22 tablet ondansetron 4 mg disintegrating 4 mg PO Q6-8H PRN nausea and 10/21/22 tablet vomiting #14 tabs albuterol sulfate 90 mcg/actuation 2 puff inhalation 6XD PRN 06/03/23 aerosol inhaler shortness of breath or wheezing #8.5 grams prednisone 20 mg tablet 60 mg (3 x 20 mg) PO DAILY #12 tabs 06/03/23 azithromycin 250 mg tablet See Rx Instructions PO .COMPLEX #6 08/23/23 tabs morphine 15 mg immediate release 15 mg PO TID PRN pain #10 tabs 08/23/23 tablet ondansetron 4 mg disintegrating 4 mg PO Q8H PRN nausea and 08/23/23 tablet vomiting #20 tabs sucralfate 100 mg/mL oral 5 ml PO QID 7 days #140 mL 08/23/23 suspension albuterol sulfate 90 mcg/actuation 2 inh inhalation Q4-6H PRN 09/19/23 breath activated powder inhaler shortness of breath or wheezing #1 ea prednisone 50 mg tablet 50 mg PO DAILY 5 days #5 tabs 09/19/23 Allergies Allergy/AdvReac Type Severity Reaction Status Date / Time penicillin V Allergy Unknown shortness Verified 08/23/23 08:44 of breath tuberculin, purified protein Allergy Unknown RED, RASH Verified 08/23/23 08:44 deriva [TUBERCULIN,PURIF.PROT.DERIV.] TB Syringe 1 ML Allergy Unknown Unknown Uncoded 08/23/23 08:44 Review of Systems Review of Systems: Constitutional : No Weight loss, No Fever, No Chills, + Fatigue, + Malaise ENT/Mouth : No sore throat, No Rhinorrhea, + congestion Eyes: No Eye Pain, No Swelling, No Redness Cardiovascular : No Chest Pain, + SOB, No Dyspnea on Exertion, No Orthopnea, No Edema, No Palpitations Respiratory : No Cough, No Sputum, No Wheezing Gastrointestinal : No Nausea, No Vomiting, No Diarrhea, No Constipation, No abdominal Pain, No Hematochezia, No Melena Genitourinary : No Dysuria, No Urinary Frequency, No Hematuria, Musculoskeletal : No joint pain, No Myalgias, No Joint Swelling Skin : No Skin Lesions, No rash Neuro : No Weakness, No Numbness, No Dizziness, No Headache Psych : No Anxiety/Panic, No Depression All other systems reviewed and are negative Yes all other systems are reviewed and are negative [facility] Past Medical History Medical History Anemia Hypertension Social History Social History (Updated 08/23/23 @ 09:17 by Sunni Garrido DO) Patient Tobacco Use Status: Never used Tobacco Advance Directives: No Advance Directives Information Provided: No Physical Exam ED Vital Signs: Vital Signs - 24 hr 09/19/23 07:11 09/19/23 07:34 Temperature 97.8 F 98.4 F Pulse Rate 95 86 Respiratory Rate 20 20 Blood Pressure 158/98 H 158/90 H Pulse Oximetry 98 96 Oxygen Delivery Method Room Air Room Air BMI result Body Mass Index 37.1 Vital signs stable Appearance: Alert.? Oriented X3.? No acute distress.? Head: Normocephalic, atraumatic, no step-offs or deformities Eyes: Pupils equal, round and reactive to light.? ENT: Pharynx normal.? Neck: Normal inspection.? Neck supple.? CVS: Normal heart rate and rhythm.? Pulses normal.? Respiratory: No respiratory distress.? Breath sounds normal.? Abdomen: Soft and nontender.? Skin: Skin warm and dry.? Normal skin color.? Normal skin turgor.? Extremities: No lower extremity edema.? No calf ttp. 5/5 strength to bilateral upper and lower extremities Neuro: Oriented X 3.? No motor deficit.? No sensory deficit. CN 2-12 intact Medical Decision Making Medical Decision Making [facility] Narrative: This is a 58-year-old female presenting fatigue, malaise, myalgias, shortness of breath, wheezing and congestion since yesterday also describing substernal chest pressure. Physical examination benign vital signs stable. Patient is saturating 96-97% even after ambulation. History and physical exam concerning for likely viral illness versus asthma versus sinusitis. Unlikely pulmonary embolism, pneumonia, ACS, dissection. No signs of acute respiratory distress Plan viral test, x-ray, EKG. Differential Diagnosis Differential Diagnoses: The differential diagnosis associated with the presentation includes History and physical exam concerning for likely viral illness versus asthma versus sinusitis. Unlikely pulmonary embolism, pneumonia, ACS, dissection. No signs of acute respiratory distress Admission/Observation Consideration of admission/observation: Escalation of care including admission/observation considered Lab Data [facility] Lab Attestation statement: I reviewed the patient's lab results. Labs: Lab Results 09/19/23 Range/Units 07:15 Influenza Type A (PCR) NEGATIVE (Negative) Influenza Type B (PCR) NEGATIVE (Negative) RSV RNA Qual (PCR) NEGATIVE (Negative) SARS-CoV-2 RNA (RT-PCR) POSITIVE A (Negative) Independent Interpretation I performed an independent interpretation of an: Plain X-Ray (Appears unremarkable) Radiology Impression Discussion of test interpretation with radiology: I have reviewed the radiologist's reading. Discharge Plan Discharge Clinical Impression: COVID-19 Patient Disposition: Home, Self-Care Instructions: COVID-19 (Coronavirus Disease 2019) (ED) Additional Instructions: Take your medications as prescribed. If you were prescribed antibiotics today, it is important that you take your medication to their entirety, do not skip any doses, do not finish them early. Today you tested positive for COVID-19. Take Ibuprofen or Tylenol as needed for fevers or body aches. Quarantine for 5 days and ensure you wear a mask. After 5 days you should wear a mask for 5 days after that. Practice social distancing and good hand hygiene. Drink plenty of fluids. Follow-up with your primary care provider this week. Return to the emergency department with new or worsening symptoms. In case of emergency call 911 You can purchase a pulse oximeter from your local pharmacy or grocery store, and monitor your oxygen saturation if it goes below 94% you should return to the emergency department for further evaluation. Media kailee medicamentos seg?n lo recetado. Si hoy te recetaron antibi?ticos, es importante que tomes tu medicaci?n en cespedes totalidad, no te saltes ninguna dosis, no las termines antes de tiempo. Hoy diste positivo por COVID-19. Media ibuprofeno o Tylenol seg?n sea necesario para la fiebre o los rian corporales. Ponga en cuarentena isidoro 5 d?as y aseg?rese de usar daryl m?scara. Despu?s de 5 d?as debes usar daryl mascarilla isidoro los 5 d?as siguientes. Practique el distanciamiento social y daryl buena higiene de madhu. Beber mucho l?quido. Ruben un seguimiento con cespedes proveedor de atenci?n primaria esta semana. Regrese al departamento de emergencias si los s?ntomas son nuevos o empeoran. En korin de emergencia llame al 911. Puede comprar un ox?metro de pulso en cespedes farmacia o supermercado local y controlar cespedes saturaci?n de ox?deny. Si desciende por debajo del 94%, debe regresar al departamento de emergencias para daryl evaluaci?n adicional. Prescriptions: New albuterol sulfate 90 mcg/actuation aerosol powdr breath activated 2 inh inhalation Q4-6H PRN (Reason: shortness of breath or wheezing) Qty: 1 0RF prednisone 50 mg tablet 50 mg PO DAILY 5 Days Qty: 5 0RF No Action ibuprofen 600 mg tablet 600 mg PO Q6H PRN (Reason: pain) Qty: 20 0RF cyclobenzaprine 10 mg tablet 10 mg PO TID PRN (Reason: muscle spasm) Qty: 10 0RF benzonatate 200 mg capsule 200 mg PO TID PRN (Reason: cough) Qty: 20 0RF fluticasone propionate [Flonase Allergy Relief] 50 mcg/actuation spray,suspension 2 spray intranasal DAILY Qty: 16 0RF Rx Instructions: administer into each nostril cefuroxime axetil 500 mg tablet 500 mg PO Q12H 5 Days Qty: 10 0RF morphine 15 mg tablet 15 mg PO Q4-6H PRN (Reason: pain) Qty: 10 0RF Rx Instructions: The patient may ask for partial fill; Partial Fill upon patient request. ondansetron 4 mg tablet,disintegrating 4 mg PO Q6-8H PRN (Reason: nausea and vomiting) Qty: 14 0RF albuterol sulfate 90 mcg/actuation HFA aerosol inhaler 2 puff inhalation 6XD PRN (Reason: shortness of breath or wheezing) Qty: 8.5 0RF prednisone 20 mg tablet 60 mg PO DAILY Qty: 12 0RF azithromycin 250 mg tablet See Rx Instructions .ROUTE .COMPLEX Qty: 6 0RF Rx Instructions: For 250 mg dose pack: take 500 mg today (day 1), then 250 mg for 4 days (days 2-5) morphine 15 mg tablet 15 mg PO TID PRN (Reason: pain) Qty: 10 0RF Rx Instructions: partial fill okay; Partial Fill upon patient request. sucralfate 100 mg/mL suspension 5 ml PO QID 7 Days Qty: 140 0RF Rx Instructions: swish in mouth and swallow; use after food/drink ondansetron 4 mg tablet,disintegrating 4 mg PO Q8H PRN (Reason: nausea and vomiting) Qty: 20 0RF levofloxacin 750 mg tablet 750 mg PO DAILY lisinopril 40 mg tablet 40 mg PO DAILY Jardiance 10 mg tablet 10 mg PO QAM (DME) lancets [TRUEplus Lancets] 33 gauge misc See Rx Instructions .ROUTE TID Qty: 100 Rx Instructions: As directed alcohol swabs [Alcohol Prep Pads] Pads, Medicated 0 pad topical TID levothyroxine 200 mcg tablet 200 mcg PO DAILY ferrous sulfate [FeroSul] 325 mg (65 mg iron) tablet 325 mg PO BID pantoprazole 40 mg tablet,delayed release (DR/EC) 40 mg PO BID amitriptyline 10 mg tablet 10 mg PO BEDTIME amlodipine 5 mg tablet 5 mg PO DAILY chlorthalidone 25 mg tablet 25 mg PO DAILY (DME) FreeStyle Lite Strips Strip See Rx Instructions .ROUTE TID Qty: 10 Rx Instructions: As directed cyanocobalamin (vitamin B-12) 1,000 mcg tablet 1,000 mcg PO DAILY propranolol 80 mg tablet 80 mg PO BEDTIME metformin 500 mg tablet 500 mg PO BID albuterol sulfate [ProAir HFA] 90 mcg/actuation HFA aerosol inhaler 2 puff inhalation QID PRN docusate sodium 100 mg capsule 100 mg PO BEDTIME Qty: 90 3RF sennosides [Natural Senna Laxative] 8.6 mg tablet 17.2 mg PO BEDTIME Qty: 60 3RF hydrocortisone [Proctosol HC] 2.5 % cream with perineal applicator 1 appl [place] BID-QID PRN (Reason: hemorrhoids) Qty: 30 2RF Referrals: Choco Shaikh MD [Primary Care Provider] - 2 days
[2023-09-19 07:59] LABS: Influenza A PCR NEGATIVE (Negative); Influenza B PCR NEGATIVE (Negative); Resp Syncy Virus RNA Qual PCR NEGATIVE (Negative); SARS COV2 PCR INHOUSE POSITIVE (Negative)
--- NOTE | 2023-09-19 08:14 | ECG_ITS ---
Test Reason : CP Blood Pressure : / mmHG Vent. Rate : 079 BPM Atrial Rate : 079 BPM P-R Int : 176 ms QRS Dur : 084 ms QT Int : 414 ms P-R-T Axes : 022 014 006 degrees QTc Int : 474 ms Normal sinus rhythm Nonspecific T wave abnormality Abnormal ECG When compared with ECG of 23-AUG-2023 09:42, Nonspecific T wave abnormality, improved in Lateral leads Referred By: Karla Storey Electronically Signed By:Sebastián Bennett
== END 2023-09-19 08:59 | disposition home or self-care (01) ==
PROVIDERS: Emergency Provider Emergency Medicine Emergency Medical Services; PCP Internal Medicine
DX: U07.1 COVID-19 (principal); R06.02 Shortness of breath; R07.89 Other chest pain; M79.10 Myalgia, unspecified site; Z79.899 Other long term (current) drug therapy
CPT/HCPCS: 0241U; 71045; 93005; 99283; 99284

== ENCOUNTER → 2023-09-19 08:14 | Outpatient (BNV) | payer OTHER, SELFPAY | PROVIDERS: Emergency Provider Emergency Medicine Emergency Medical Services; PCP Internal Medicine; Visit Provider Internal Medicine Cardiovascular Disease | DX: R07.9 Chest pain, unspecified (principal) | CPT/HCPCS: 93010 ==

== ENCOUNTER 2023-11-19 | Outpatient (REF) | payer OTHER, SELFPAY | END 2023-11-19 00:01 | disposition home or self-care (01) | LOC: HO.HHCLNP | PROVIDERS: Visit Provider Emergency Medicine | DX: R68.89 Other general symptoms and signs (principal) | CPT/HCPCS: 87070 ==

== ENCOUNTER 2024-04-29 10:54 | Outpatient (REF) | payer OTHER, SELFPAY ==
[2024-04-29 14:07] LABS: MANUAL DIFF FLAG NO
[2024-04-29 14:08] LABS: Basophils Percent Auto 0.4 % (0-2); Eosinophils Absolute Auto 0.1 X10*3/uL (0.0-0.4); Eosinophils Percent Auto 1.4 % (0-4); Hematocrit 43.7 % (37.0-47.0); Imm Gran Abs Auto 0.02 X10*3/uL (0.00-0.03); Imm Gran Pct Auto 0.4 % (0.0-0.4); Lymphocytes Absolute Auto 1.6 X10*3/uL (1.2-4.9); Lymphocytes Percent Auto 28.7 % (20-40); Mean Corpuscular Hemoglobin 28.1 pg (27.0-33.0); Mean Corpuscular Volume 87.8 fL (80.0-98.0); Mean Platelet Volume 11.2 fL (9.4-12.3); Monocytes Absolute Auto 0.4 X10*3/uL (0.1-1.2); Monocytes Percent Auto 7.6 % (2-11); Neutrophils Absolute Auto 3.4 x10*3/uL (2.0-8.3); Neutrophils Percent Auto 61.5 % (45-73); Platelet Count 184 X10*3/uL (160-400); Red Blood Count 4.98 X10*6/uL (4.20-5.50); White Blood Count 5.5 X10*3/uL (4.8-10.8)
[2024-04-29 14:25] LABS: Alanine Aminotransferase 30 U/L (0-31); Albumin Level 4.2 g/dL (3.5-5.0); Alkaline Phosphatase 129 U/L (39-117); Anion Gap 15 (12-20); Aspartate Amino Transferase 20 U/L (5-31); Bilirubin Total 0.4 mg/dL (0.0-1.0); Blood Urea Nitrogen 15 mg/dL (9-16); Calcium 9.6 mg/dL (8.4-10.2); Carbon Dioxide 27 mmol/L (22-29); Chloride 105 mmol/L (96-108); Cholesterol 137 mg/dL (<200); Estimated Glomerular Filt Rate > 60; Glucose Random 135 mg/dL (60-115); HDL Cholesterol 46 mg/dL (>40); Iron 42 mcg/dL (30-160); LDL Cholesterol Calculated 74 mg/dL (<100); Percent Iron Saturation 22 % (15-50); Potassium 3.6 mmol/L (3.3-5.1); Sodium 143 mmol/L (135-145); Total Iron Binding Capacity 192 mcg/dL (228-428); Total Protein 7.3 g/dL (6.5-8.0); Triglycerides 87 mg/dL (<150); Unsaturated Iron Binding 150 ug/dL
[2024-04-29 14:38] LABS: Microalbum/Creatinine Ratio Ur 13.9 ug/mg cr (<30)
[2024-04-29 14:42] LABS: TSH reflex Free T4 0.56 uIU/mL (0.32-4.0)
[2024-04-29 14:54] LABS: Folate 14.9 ng/mL (> or = 4.0); Vitamin B12 510 pg/mL (200-900)
== END 2024-04-29 10:55 | disposition home or self-care (01) ==
LOC: HO.CHCLDS 10:54
PROVIDERS: Visit Provider Internal Medicine
DX: E11.65 Type 2 diabetes mellitus with hyperglycemia (principal); E03.9 Hypothyroidism, unspecified
CPT/HCPCS: 36415; 80053; 80061; 82043; 82570; 82607; 82746; 83540; 84443; 85025

== ENCOUNTER 2024-10-19 11:31 | Outpatient (AMB) | payer OTHER, SELFPAY ==
[2024-10-19 11:35] VITALS: BP 124/92; PULSE 66; O2SAT 99; BMI 36.3
--- NOTE | 2024-10-19 11:35 | HO.NEPHOV ---
Vital Signs 10/19/24 11:35 Height 5 ft 6 in Weight 225 lb BMI 36.3 BP 124/92 H Blood Pressure Location Lt brachial Position Sitting Pulse 66 Pulse Source Pulse Oximeter Pulse Oximetry (%) 99 Oxygen Delivery Method Room Air Intake Visit Reasons: [id number] Web Development Intern Required: Yes Web Development Intern Name: Hali [id number] Accompanied by: Self / Same As Patient Allergies penicillin V Allergy (Unknown, Verified 10/19/24 11:38) shortness of breath tuberculin, purified protein deriva [TUBERCULIN,PURIF.PROT.DERIV.] Allergy (Unknown, Verified 10/19/24 11:38) RED, RASH TB Syringe 1 ML Allergy (Unknown, Uncoded 08/23/23 08:44) Unknown Medication List - Last Reconciled 10/19/24 by August Varma MD albuterol sulfate 90 mcg/actuation 2 puffs inhalation 6XD PRN albuterol sulfate 90 mcg/actuation 2 inhalations inhalation Q4-6H PRN albuterol sulfate 90 mcg/actuation (ProAir HFA) 2 puffs inhalation QID PRN alcohol swabs (Alcohol Prep Pads) 0 pad topical TID amitriptyline 10 mg PO BEDTIME amlodipine 10 mg PO DAILY benzonatate 200 mg PO TID PRN blood sugar diagnostic (FreeStyle Lite Strips) As directed chlorthalidone 25 mg PO DAILY cyanocobalamin (vitamin B-12) 1,000 mcg PO DAILY cyclobenzaprine 10 mg PO TID PRN docusate sodium 100 mg PO BEDTIME empagliflozin (Jardiance) 10 mg PO QAM ferrous sulfate (FeroSul) 325 mg PO BID fluticasone propionate 50 mcg/actuation (Flonase Allergy Relief) 2 sprays intranasal DAILY hydrocortisone 2.5% (Proctosol HC) 1 appl [place] BID-QID PRN ibuprofen 600 mg PO Q6H PRN lancets (TRUEplus Lancets) As directed levofloxacin 750 mg PO DAILY levothyroxine 200 mcg PO DAILY lisinopril 40 mg PO DAILY metformin 500 mg PO BID morphine 15 mg PO Q4-6H PRN morphine 15 mg PO TID PRN ondansetron 4 mg PO Q6-8H PRN ondansetron 4 mg PO Q8H PRN pantoprazole 20 mg PO BID prednisone 60 mg (3 x 20 mg) PO DAILY prednisone 50 mg PO DAILY 5 days propranolol 80 mg PO BEDTIME semaglutide (Ozempic) mg subcut QWEEK sennosides (Natural Senna Laxative) 17.2 mg (2 x 8.6 mg) PO BEDTIME sucralfate 5 mL PO QID 7 days HPI Comments Details: 59-year-old woman with a history of hypertension diabetes mellitus and obesity referred for resistant hypertension. She is on 3 antihypertensive medications and blood pressure is still suboptimal. Recently Ozempic has been added she was lost few lb. She has a history of snoring. She wakes up about 4 times per night [facility] Medical History (Updated 10/19/24 @ 11:51 by August Varma MD) Anemia Hypertension Social History Patient Tobacco Use Status: Never used Tobacco Review of Systems Const Denies fever(s) and Denies weight loss Card Denies chest pain Resp Denies cough and Denies hemoptysis GI Denies abdominal pain, Denies diarrhea and Denies nausea Musc Denies back pain Neuro Denies focal weakness Physical Exam Vital Signs: Last Vital Signs Pulse 66 10/19/24 11:35 BP 124/92 H 10/19/24 11:35 Pulse Ox 99 10/19/24 11:35 Oxygen Delivery Method Room Air 10/19/24 11:35 BMI result Body Mass Index 36.3 Comfortable Neck supple no JVD. Lungs entry equal no rales. Heart S1-S2 heard no gallop or rub. Abdomen soft nontender. Neuro alert awake oriented. No asterixis. Extremities no edema. Results Reviewed Nephrology Results: Hgb 14.0 g/dl (12.0-16.0) 04/29/24 WBC 5.5 X10*3/uL (4.8-10.8) 04/29/24 Plt Count 184 X10*3/uL (160-400) 04/29/24 Sodium 143 mmol/L (135-145) 04/29/24 Potassium 3.6 mmol/L (3.3-5.1) 04/29/24 Chloride 105 mmol/L (96-108) 04/29/24 Carbon Dioxide 27 mmol/L (22-29) 04/29/24 BUN 15 mg/dL (9-16) 04/29/24 Creatinine 0.78 mg/dL (0.5-1.4) 04/29/24 Calcium 9.6 mg/dL (8.4-10.2) 04/29/24 Urine Protein Negative mg/dL (Neg-Trace) 10/21/22 Urine Creatinine 86.00 mg/dL 04/29/24 Assessment & Plan Assessment & Plan (1) Hypertension: Code(s): I10 - Essential (primary) hypertension Category: Medical Plan 59-year-old year old woman with a history of hypertension diabetes mellitus and obesity referred for difficult to control hypertension. At present systolic blood pressure acceptable. Diastolic is suboptimal. The resistant hypertension may very well be due to obesity and from underlying sleep apnea. Plan Obtain 24 hour ambulatory blood pressure monitoring Refer to sleep Medicine Services for polysomnography. Encouraged to stay on low-sodium diet Continue Ozempic and discussed importance of weight loss. No changes were made to her medications yet. Further workup will be based on the above investigations. Orders: Orders AMB 24 HR B/P Monitor PLACEMENT Today I10 - Essential (primary) hypertension Referrals Sleep Medicine Referral I10 - Essential (primary) hypertension Medications: Discontinued ondansetron Discontinued Reason: Patient no longer taking 4 mg PO Q6-8H PRN 14 tabs 0RF nausea and vomiting prednisone Discontinued Reason: Patient no longer taking 60 mg (3 x 20 mg) PO DAILY 12 tabs 0RF prednisone Discontinued Reason: Patient no longer taking 50 mg PO DAILY 5 days 5 tabs 0RF Coding Level of Care Code New Pt Level 4 (18567) Diagnoses Hypertension I10
== END 2024-10-19 11:53 | disposition home or self-care (01) ==
PROVIDERS: PCP Internal Medicine; Visit Provider Internal Medicine Hypertension Specialist
DX: I10 Essential (primary) hypertension (principal)
CPT/HCPCS: 99204

== ENCOUNTER → 2024-10-19 11:31 | Outpatient (BNVA) | payer OTHER, SELFPAY | PROVIDERS: PCP Internal Medicine; Visit Provider Internal Medicine Hypertension Specialist ==

== ENCOUNTER 2025-04-04 08:51 | Outpatient (REF) | payer OTHER, SELFPAY ==
--- OUTSIDE RECORDS SUMMARY | 2025-04-04 09:04 | XMS_ITS | Encounter Summary ---
Author Organization [employer] Address [address] [place] [address] [address] [place] [address] Care Team Providers Care Laboratory Scientist Name Role Phone Choco Shaikh MD Primary Care Prov ider Reason for Visit * Reason Comments Med Refill Encounter Details Date Type Department Care Team ([facility] Contact Info) Description 07/20/2024 Refill [facility] [address], [place] [phone] Choco Shaikh MD [address] [place] [address] Social History Tobacco Use Types Packs/Day Years Used Date Smoking Tobacco: Never Passive Smoke Exposure: Never Smokeless Tobacco: Never Alcohol Use Standard Drinks/Week Comments Never 0 (1 standard drink = 0.6 oz pur e alcohol) Depression Answer Date Recorded Patient Health Questionnaire-9 Score 0 01/22/2024 Patient Health Questionnaire-9 Score 0 01/22/2024 Last PHQ-9: Questionnaire Data Not on file 0 01/22/2024 Housing Stability Answer Date Recorded What is your housing situation today? I have jennifer garcia 01/22/[address] you li ve. Do you have problems with any of the following? None of the above 01/22/2024 Food Insecurity Answer Date Recorded Within the past 12 months, y ou worried that your food would run out before you got money to buy more: Never True 01/22/2024 Within the past 12 months,th e food you bought just didn't last and you didn't have enough money to get more: Never True Transportation Answer Date Recorded In the past 12 months, has l ack of transportation kept you from medical appts, meetings, work or from getting things needed for daily living? No 01/22/2024 Utilities Answer Date Recorded In the past 12 months, has t he electric, gas, oil or water company threatened to shut off services in your home? No 01/22/2024 Depression Answer Date Recorded Patient Health Questionnaire-2 Score 0 01/22/2024 Comments Unknown Sex and Gender Information Value Date Recorded Sex Assigned at Female 08/05/2022 10:15 AM EDT Legal Sex Female 10:15 AM EDT Gender Identity Female 08/05/2022 10:15 AM EDT Sexual Orientation Straight 08/05/2022 10 :15 AM EDT documented as of this encounter Plan of Treatment Upcoming Encounters Date Type Department Care Team (Late st Contact Info) Description 07/04/2025 1:00 PM EDT Telemedicine [facility] MED [facility] PEDS [address] [place] [address] Choco Shaikh MD [address] [place] [address] documented as of this encounter Visit Diagnoses Not on filedocumented in this encounter Additional Health Concerns Assessment Noted Time PHQ-9 Depression Total Score: 0 01/22/20 24 10:22 AM EDT documented as of this encounter Care Teams Laboratory Scientist Relationship Specialty Start Date End Date Choco Shaikh MD [address] [place] [address] PCP - General Internal Medicine 02/29/20 documented as of this encounter
[2025-04-04 14:52] LABS: MANUAL DIFF FLAG NO
[2025-04-04 14:57] LABS: Basophils Percent Auto 0.8 % (0-2); Eosinophils Absolute Auto 0.2 X10*3/uL (0.0-0.4); Eosinophils Percent Auto 4.3 % (0-4); Hematocrit 42.5 % (37.0-47.0); Hemoglobin 13.4 g/dl (12.0-16.0); Imm Gran Abs Auto 0.03 X10*3/uL (0.00-0.03); Imm Gran Pct Auto 0.6 % (0.0-0.4); Lymphocytes Absolute Auto 1.3 X10*3/uL (1.2-4.9); Lymphocytes Percent Auto 25.9 % (20-40); Mean Corpuscular HGB Conc 31.5 g/dl (31.0-35.0); Mean Corpuscular Volume 88.7 fL (80.0-98.0); Monocytes Absolute Auto 0.4 X10*3/uL (0.1-1.2); Monocytes Percent Auto 7.5 % (2-11); Neutrophils Absolute Auto 3.1 x10*3/uL (2.0-8.3); Neutrophils Percent Auto 60.9 % (45-73); Platelet Count 175 X10*3/uL (160-400); Red Blood Count 4.79 X10*6/uL (4.20-5.50); Red Cell Distribution Width 12.9 % (11.0-16.0); White Blood Count 5.1 X10*3/uL (4.8-10.8)
[2025-04-04 15:09] LABS: Estimated Average Glucose 126 mg/dL; Total Hemoglobin (HGBA1C) 3492.8247 umol/L
[2025-04-04 15:34] LABS: Alanine Aminotransferase 24 U/L (0-31); Alkaline Phosphatase 107 U/L (39-117); Anion Gap 12 (12-20); Aspartate Amino Transferase 27 U/L (5-31); Blood Urea Nitrogen 14 mg/dL (9-16); Calcium 8.7 mg/dL (8.4-10.2); Carbon Dioxide 28 mmol/L (22-29); Chloride 105 mmol/L (96-108); Cholesterol 137 mg/dL (<200); Glucose Random 102 mg/dL (60-115); Potassium 3.7 mmol/L (3.3-5.1); Sodium 141 mmol/L (135-145); Total Protein 7.1 g/dL (6.5-8.0); Triglycerides 72 mg/dL (<150)
[2025-04-04 15:41] LABS: TSH reflex Free T4 35.92 uIU/mL (0.32-4.0)
[2025-04-04 15:50] LABS: Bilirubin Total 0.3 mg/dL (0.0-1.0); Estimated Glomerular Filt Rate > 60
[2025-04-04 16:04] LABS: HDL Cholesterol 47 mg/dL (>40); LDL Cholesterol Calculated 76 mg/dL (<100)
[2025-04-04 16:27] LABS: Free T4 (Free Thyroxine) 0.82 ng/dL (0.71-1.85)
== END 2025-04-04 08:52 | disposition home or self-care (01) ==
LOC: HO.CHCLDS 08:51
PROVIDERS: Visit Provider Internal Medicine
DX: E11.9 Type 2 diabetes mellitus without complications (principal); I10 Essential (primary) hypertension
CPT/HCPCS: 36415; 80053; 80061; 83036; 84439; 84443; 85025

== ENCOUNTER 2025-04-11 18:40 | Emergency (ER) | payer OTHER, SELFPAY ==
--- NOTE | ~2025-04-11 | CT_ITS ---
CLINICAL HISTORY: severe headache eval for aneurysm CTA HEAD WITH CONTRAST AND 3D POST PROCESSING CTA NECK WITH CONTRAST AND 3D POST PROCESSING COMPARISON: Noncontrast CT brain 04/11/2025. FINDINGS: CTA NECK: Sagittal and coronal MIP 3D reconstruction images were performed.There is no significant stenosis, occlusion, dissection, aneurysm, or vascular malformation. There is no active bleeding.Common carotid arteries, internal carotid arteries, external carotid arteries, and vertebral arteries are unremarkable. Lung apices are unremarkable. There are multilevel endplate degenerative changes within the cervical spine. CTA HEAD: Sagittal and coronal MIP 3D reconstruction images were performed.There is no significant stenosis, occlusion, dissection, aneurysm, or vascular malformation. There is no active bleeding. Right A1 segment is hypoplastic, this is an anatomic variant. Terminal internal carotid arteries, middle cerebral arteries, anterior cerebral arteries, basilar artery, and posterior cerebral arteries are otherwise unremarkable. No evidence of dural venous sinus thrombosis. IMPRESSION: 1. Unremarkable CTA neck and CTA head. This document has been electronically signed by: Raffy Fish M.D. on 04/12/2025 05:02:36
--- NOTE | ~2025-04-11 | CT_ITS ---
CLINICAL HISTORY: HTN, severe L headache eye pain, ear pain CT head without contrast Comparison: None provided Findings: Bilateral low densities of the anterior aspects of the basal ganglia regions likely due to old infarctions. Nonenlarged arterial territorial infarction by CT. No acute intracranial hemorrhage. No midline shift or hydrocephalus. Mild/minimal volume loss is generalized. Partially empty sella by CT. Mild mucosal thickening of the imaged paranasal sinuses. Trace left mastoid effusion. No acute skull fracture. IMPRESSION: 1. No acute intracranial abnormality by CT. 2. 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 This document has been electronically signed by: Bennett Peterson MD on 04/11/2025 21:38:41
--- NOTE | 2025-04-11 18:48 | ED.EAR ---
HPI - Ear Problem General Chief complaint: Headache Stated complaint: Ear infection, sent form [facility] Time Seen by Provider: 04/11/25 21:14 Source: patient Mode of arrival: ambulatory Limitations: no limitations History of Present Illness ED Provider: Dr. Payton Olivera HPI Narrative: 60-year-old female with history of hypertension and diabetes presenting with severe left-sided headache stemming from her ear, radiating into her eye socket and then all over the rest of her head. Symptoms have been ongoing for about 3 weeks now. Admits she was seen in an urgent care and started on antibiotics for potential ear infection. Admits that her symptoms have not improved and she is only having worsening headaches now. Pain is so severe she can not even touch the skin on the left side of her head or face. Admits she is having associated photophobia particularly in the left eye. Has been covering her eye to help with the pain otherwise the pain is intolerable. Has been using Tylenol and Motrin at home for pain without relief. Admits she had a fever as high as 101? at home yesterday. Describes sinus congestion and a fullness in her ear with diminished hearing. No changes in her vision though. No skin rashes, tick or mosquito exposures, known sick contacts, neck stiffness. Denies drainage from her ear. Related Data Home Medications ?Medication ?Instructions ?Recorded ?Confirmed albuterol sulfate 90 mcg/actuation 2 puff inhalation QID PRN 07/02/22 10/19/24 aerosol inhaler (ProAir HFA) alcohol swabs (Alcohol Prep Pads) 0 pad topical TID 07/02/22 10/19/24 amitriptyline 10 mg tablet 10 mg PO BEDTIME 07/02/22 10/19/24 blood sugar diagnostic (FreeStyle #10 ea 07/02/22 10/19/24 Lite Strips) chlorthalidone 25 mg tablet 25 mg PO DAILY 07/02/22 10/19/24 cyanocobalamin (vitamin B-12) 1,000 mcg PO DAILY 07/02/22 10/19/24 1,000 mcg tablet empagliflozin 10 mg tablet 10 mg PO QAM 07/02/22 10/19/24 (Jardiance) ferrous sulfate 325 mg (65 mg 325 mg PO BID 07/02/22 10/19/24 iron) tablet (FeroSul) lancets 33 gauge (TRUEplus Lancets) #100 ea 07/02/22 10/19/24 levothyroxine 200 mcg tablet 200 mcg PO DAILY 07/02/22 10/19/24 lisinopril 40 mg tablet 40 mg PO DAILY 07/02/22 10/19/24 metformin 500 mg tablet 500 mg PO BID 07/02/22 10/19/24 propranolol 80 mg tablet 80 mg PO BEDTIME 07/02/22 10/19/24 amlodipine 10 mg tablet 10 mg PO DAILY 10/19/24 10/19/24 pantoprazole 20 mg tablet,delayed 20 mg PO BID 10/19/24 10/19/24 release semaglutide 0.25 mg or 0.5 mg (2 mg subcut QWEEK 10/19/24 10/19/24 mg/3 mL) subcutaneous pen injector ([email or web address]) Previous Rx's ?Medication ?Instructions ?Recorded ibuprofen 600 mg tablet 600 mg PO Q6H PRN pain #20 tabs 09/16/20 cyclobenzaprine 10 mg tablet 10 mg PO TID PRN muscle spasm #10 06/03/21 tabs benzonatate 200 mg capsule 200 mg PO TID PRN cough #20 caps 12/16/21 fluticasone propionate 50 2 spray intranasal DAILY #16 grams 12/16/21 mcg/actuation nasal spray,suspension (Flonase Allergy Relief) docusate sodium 100 mg capsule 100 mg PO BEDTIME #90 caps 07/02/22 hydrocortisone 2.5 % topical cream 1 appl [place] BID-QID PRN hemorrhoids 07/02/22 with perineal applicator #30 grams (Proctosol HC) sennosides 8.6 mg tablet (Natural 17.2 mg (2 x 8.6 mg) PO BEDTIME 07/02/22 Senna Laxative) constipation #60 tabs morphine 15 mg immediate release 15 mg PO Q4-6H PRN pain #10 tabs 10/21/22 tablet albuterol sulfate 90 mcg/actuation 2 puff inhalation 6XD PRN 06/03/23 aerosol inhaler shortness of breath or wheezing #8.5 grams morphine 15 mg immediate release 15 mg PO TID PRN pain #10 tabs 08/23/23 tablet ondansetron 4 mg disintegrating 4 mg PO Q8H PRN nausea and 08/23/23 tablet vomiting #20 tabs sucralfate 100 mg/mL oral 5 ml PO QID 7 days #140 mL 08/23/23 suspension albuterol sulfate 90 mcg/actuation 2 inh inhalation Q4-6H PRN 09/19/23 breath activated powder inhaler shortness of breath or wheezing #1 ea nitzmoxfda-vxadslylktjpt-iykrobcg 1 cap PO TID PRN severe headache 04/12/25 50 mg-300 mg-40 mg capsule #10 caps (Fioricet) cyclobenzaprine 10 mg tablet 10 mg PO TID #10 tabs 04/12/25 Allergies Allergy/AdvReac Type Severity Reaction Status Date / Time penicillin V Allergy Unknown shortness Verified 04/11/25 18:53 of breath tuberculin, purified protein Allergy Unknown RED, RASH Verified 04/11/25 18:53 deriva (TUBERCULIN,PURIF.PROT.DERIV.) TB Syringe 1 ML Allergy Unknown Unknown Uncoded 08/23/23 08:44 Review of Systems Review of Systems: Yes all other systems are reviewed and are negative (As per HPI) [facility] Past Medical History Attestation statement: The following information was validated with the patient. [facility] Narrative: Diabetes, hypertension Medical History Anemia Hypertension Social History Social History Patient Tobacco Use Status: Never used Tobacco Smoked in Last 30 Days: No Use of substances other than those prescribed or required for medical reasons: No Advance Directives: No Advance Directives Information Provided: Yes Do you have a plan to hurt others: No Plan Patient : No Physical Exam Vital Signs: Vital Signs: Last Vital Signs Temp 97.4 F 04/12/25 06:12 Pulse 62 04/12/25 06:12 Resp 20 04/11/25 19:22 BP 142/74 H 04/12/25 06:12 Pulse Ox 98 04/12/25 06:12 O2 Del Method Room Air 04/12/25 06:12 BMI result Body Mass Index 29.4 GENERAL: Ill-Appearing, appears uncomfortable. SKIN: Normal skin color for ethnicity, warm, dry, no rashes noted. HEENT: Normocephalic, atraumatic, no stridor, dry mucous membranes, dentition intact, EOMI, PERRLA, tenderness with palpation overlying the entire left pinna despite having large earrings pulling on her earlobe, tenderness at the tragus, both auditory cancals are patent, no erythema/lesions/drainage. NECK: Soft, supple, full ROM, midline structures nontender, no step-offs, no deformities, no lymphadenopathy. CHEST: Heart regular tachycardia, no murmurs, symmetric chest rise and fall. PULMONARY: Clear to auscultation bilaterally, diminished at the bases, no labored breathing, no wheezes/rhales/rhonchi. ABDOMINAL: Soft, nondistended, nontender, positive bowel sounds in all quadrants. : Deferred. MUSCULOSKELETAL: Normal tone, full range of motion, no deformities, no peripheral edema. NEURO: Alert and oriented x3, CN II through XII intact, equal strength and sensation bilateral upper and lower extremities, no focal neurologic deficits. PSYCHIATRIC: Flat affect, fluid speech, good eye contact and appropriate demeanor. Course Course Course Narrative: This is an RME performed by Esequiel Reid CNP: Additional HPI, ROS, PE not included below will be deferred to primary provider. Patient is a 60-year-old female who presents to the emergency department for evaluation. Three weeks ago she began was seen she was evaluated at an urgent care she is given oral antibiotics. Has had associated left-sided headache with this. Feels as though there is something stuck in her ear. Took a course of Augmentin without improvement. She states today she is having severe worsening of her pain, pain to the left eye with photophobia, the pulling sensation posterior to the eye. Advised by urgent care to come to emergency department for IV antibiotics concern for brain inflammation . no mastoid tenderness on examination, history of hypertension, BP 228/122 today, took her antihypertensives. Plan: Head CT, serum labs Medications Administered Discontinued Medications Generic Name Dose Route Start Last Admin Trade Name Freq PRN Reason Stop Dose Admin Diazepam 2 mg 04/11/25 22:48 04/11/25 22:58 Diazepam 2 Mg Tablet PO 04/11/25 22:49 2 mg ONCE ONE Administration Hydromorphone HCl 1 mg 04/12/25 01:51 04/12/25 01:57 Hydromorphone Hcl 1 Mg/Ml Syringe IVPUSH 04/12/25 01:52 1 mg ONCE ONE Administration Protocol Sodium Chloride 1,000 mls @ 999 mls/hr 04/11/25 23:00 04/12/25 02:11 Ns IV 04/12/25 00:00 Infused .Q1H1M CARMELINA Infusion Iohexol 70 ml 04/12/25 02:56 04/12/25 03:07 Iohexol 350 Mg/Ml 100 Ml Infus..Btl IV 04/12/25 02:57 70 ml ONCE ONE Administration Ketorolac Tromethamine 15 mg 04/11/25 22:48 04/11/25 22:59 Ketorolac Tromethamine 15 Mg/Ml Vial IVPUSH 04/11/25 22:49 15 mg ONCE ONE Administration Metoclopramide HCl 10 mg 04/11/25 22:48 04/11/25 22:59 Metoclopramide Hcl 10 Mg/2 Ml Vial IVPUSH 04/11/25 22:49 10 mg ONCE ONE Administration Medical Decision Making Medical Decision Making [facility] Narrative: Patient presents with a chief complaint of headache. The differential diagnosis on this patient includes but is not limited to migraine headache, tension headache, cluster headache, subarachnoid hemorrhage, dissection, venous thrombosis, meningitis, sinusitis, glaucoma, bleeding or tumor. Based on history and physical exam, appropriate work-up was initiated. Medicated with migraine cocktail for headache. Differential Diagnosis Differential Diagnoses: The differential diagnosis associated with the presentation includes (As above) Admission/Observation Consideration of admission/observation: Escalation of care including admission/observation considered Lab Data [facility] Lab Attestation statement: I reviewed the patient's lab results. Slightly elevated CRP. White blood cell count is normal. No left shift. Blood work otherwise reassuring. 04/11/25 19:14 04/11/25 19:14 Labs: Lab Results 04/11/25 Range/Units 19:14 WBC 8.4 (4.8-10.8) X10*3/uL RBC 5.03 (4.20-5.50) X10*6/uL Hgb 14.4 (12.0-16.0) g/dl Hct 43.5 (37.0-47.0) % MCV 86.5 (80.0-98.0) fL MCH 28.6 (27.0-33.0) pg MCHC 33.1 (31.0-35.0) g/dl RDW 13.3 (11.0-16.0) % Plt Count 210 (160-400) X10*3/uL MPV 10.0 (9.4-12.3) fL Immature Gran % (Auto) 0.5 H (0.0-0.4) % Neut % (Auto) 57.7 (45-73) % Lymph % (Auto) 30.1 (20-40) % [place] % (Auto) 8.5 (2-11) % Eos % (Auto) 2.7 (0-4) % Baso % (Auto) 0.5 (0-2) % Lymph # (Auto) 2.5 (1.2-4.9) X10*3/uL [place] # (Auto) 0.7 (0.1-1.2) X10*3/uL Eos # (Auto) 0.2 (0.0-0.4) X10*3/uL Baso # (Auto) 0.0 (0.0-0.2) X10*3/uL Abs Immat Gran (auto) 0.04 H (0.00-0.03) X10*3/uL Absolute Neuts (auto) 4.9 (2.0-8.3) x10*3/uL Absolute Nucleated RBC 0.000 (0.0-0.012) X10*3/uL Nucleated RBC % (auto) 0.0 (0.0-0.2) /100WBC ESR 13 (0-20) MM/HR Sodium 139 (135-145) mmol/L Potassium 3.7 (3.3-5.1) mmol/L Chloride 105 (96-108) mmol/L Carbon Dioxide 26 (22-29) mmol/L Anion Gap 12 (12-20) BUN 15 (9-16) mg/dL Creatinine 0.87 (0.5-1.4) mg/dL Estim Creat Clear Calc 75.4 Estimated GFR > 60 Random Glucose 103 (60-115) mg/dL Calcium 9.0 (8.4-10.2) mg/dL Total Bilirubin 0.3 (0.0-1.0) mg/dL AST 20 (5-31) U/L ALT 31 (0-31) U/L Alkaline Phosphatase 125 H (39-117) U/L C-Reactive Protein 0.68 H (< or = 0.50) mg/dL Total Protein 8.0 (6.5-8.0) g/dL Albumin 4.7 (3.5-5.0) g/dL Urine Color Yellow Urine Appearance Clear Urine pH 5.5 (5.0-9.0) Ur Specific [place] >= 1.030 H (1.005-1.025) Urine Protein Trace (Neg-Trace) mg/dL Urine Glucose (UA) >=1000 H (Negative) mg/dL Urine Ketones Trace (Negative) mg/dL Urine Blood Negative (Negative) Urine Nitrite Negative (Negative) Ur Leukocyte Esterase Negative (Negative) Urine RBC 0-2 (0-2) /HPF Urine WBC 0-5 (0-5) /HPF Ur Squamous Epith Cells 0-2 (0-2) /HPF Urine Bacteria None Seen (None Seen) Hyaline Casts 0-2 (0-2) /LPF Radiology Impression Discussion of test interpretation with radiology: I have reviewed the radiologist's reading. Discharge Plan Discharge Clinical Impression: Migraine, Otalgia of left ear Patient Disposition: Home, Self-Care Instructions: Migraine Headache (ED) Prescriptions: New adfqbqoppr-kpfsgguduqwil-zmxi [Fioricet] 50-300-40 mg capsule 1 cap PO TID PRN (Reason: severe headache) Qty: 10 0RF cyclobenzaprine 10 mg tablet 10 mg PO TID Qty: 10 0RF No Action ibuprofen 600 mg tablet 600 mg PO Q6H PRN (Reason: pain) Qty: 20 0RF cyclobenzaprine 10 mg tablet 10 mg PO TID PRN (Reason: muscle spasm) Qty: 10 0RF benzonatate 200 mg capsule 200 mg PO TID PRN (Reason: cough) Qty: 20 0RF fluticasone propionate [Flonase Allergy Relief] 50 mcg/actuation spray,suspension 2 spray intranasal DAILY Qty: 16 0RF Rx Instructions: administer into each nostril morphine 15 mg tablet 15 mg PO Q4-6H PRN (Reason: pain) Qty: 10 0RF Rx Instructions: The patient may ask for partial fill; Partial Fill upon patient request. albuterol sulfate 90 mcg/actuation aerosol powdr breath activated 2 inh inhalation Q4-6H PRN (Reason: shortness of breath or wheezing) Qty: 1 0RF albuterol sulfate 90 mcg/actuation HFA aerosol inhaler 2 puff inhalation 6XD PRN (Reason: shortness of breath or wheezing) Qty: 8.5 0RF morphine 15 mg tablet 15 mg PO TID PRN (Reason: pain) Qty: 10 0RF Rx Instructions: partial fill okay; Partial Fill upon patient request. sucralfate 100 mg/mL suspension 5 ml PO QID 7 Days Qty: 140 0RF Rx Instructions: swish in mouth and swallow; use after food/drink ondansetron 4 mg tablet,disintegrating 4 mg PO Q8H PRN (Reason: nausea and vomiting) Qty: 20 0RF lisinopril 40 mg tablet 40 mg PO DAILY Jardiance 10 mg tablet 10 mg PO QAM (DME) lancets [TRUEplus Lancets] 33 gauge misc See Rx Instructions .ROUTE TID Qty: 100 Rx Instructions: As directed alcohol swabs [Alcohol Prep Pads] Pads, Medicated 0 pad topical TID levothyroxine 200 mcg tablet 200 mcg PO DAILY ferrous sulfate [FeroSul] 325 mg (65 mg iron) tablet 325 mg PO BID amitriptyline 10 mg tablet 10 mg PO BEDTIME chlorthalidone 25 mg tablet 25 mg PO DAILY (DME) FreeStyle Lite Strips Strip See Rx Instructions .ROUTE TID Qty: 10 Rx Instructions: As directed cyanocobalamin (vitamin B-12) 1,000 mcg tablet 1,000 mcg PO DAILY propranolol 80 mg tablet 80 mg PO BEDTIME metformin 500 mg tablet 500 mg PO BID albuterol sulfate [ProAir HFA] 90 mcg/actuation HFA aerosol inhaler 2 puff inhalation QID PRN docusate sodium 100 mg capsule 100 mg PO BEDTIME Qty: 90 3RF sennosides [Natural Senna Laxative] 8.6 mg tablet 17.2 mg PO BEDTIME Qty: 60 3RF hydrocortisone [Proctosol HC] 2.5 % cream with perineal applicator 1 appl OH BID-QID PRN (Reason: hemorrhoids) Qty: 30 2RF Ozempic 0.25 mg or 0.5 mg (2 mg/3 mL) pen injector subcut QWEEK amlodipine 10 mg tablet 10 mg PO DAILY pantoprazole 20 mg tablet,delayed release (DR/EC) 20 mg PO BID Print Language: Bengali
[2025-04-11 18:50] VITALS: BP 228/122; PULSE 68; RESP 16; TEMP 36.7; O2SAT 100; BMI 29.4
[2025-04-11 19:19] LABS: MANUAL DIFF FLAG NO
[2025-04-11 19:20] LABS: Hematocrit 43.5 % (37.0-47.0); Hemoglobin 14.4 g/dl (12.0-16.0); Imm Gran Abs Auto 0.04 X10*3/uL (0.00-0.03); Imm Gran Pct Auto 0.5 % (0.0-0.4); Lymphocytes Absolute Auto 2.5 X10*3/uL (1.2-4.9); Mean Corpuscular HGB Conc 33.1 g/dl (31.0-35.0); Mean Corpuscular Hemoglobin 28.6 pg (27.0-33.0); Mean Corpuscular Volume 86.5 fL (80.0-98.0); NRBC Abs Auto 0.000 X10*3/uL (0.0-0.012); NRBC Pct Auto 0.0 /100WBC (0.0-0.2); Platelet Count 210 X10*3/uL (160-400); Red Blood Count 5.03 X10*6/uL (4.20-5.50); White Blood Count 8.4 X10*3/uL (4.8-10.8)
[2025-04-11 19:22] VITALS: BP 183/92; PULSE 66; RESP 20; TEMP 36.8; O2SAT 100
[2025-04-11 19:22] LABS: Appearance Urine Clear; Glucose Urine UA >=1000 mg/dL (Negative); PH 5.5 (5.0-9.0); Specific Gravity - Urine >= 1.030 (1.005-1.025); UMIC TRIGGER UACC YES
[2025-04-11 19:33] LABS: Alanine Aminotransferase 31 U/L (0-31); Albumin Level 4.7 g/dL (3.5-5.0); Alkaline Phosphatase 125 U/L (39-117); Anion Gap 12 (12-20); Aspartate Amino Transferase 20 U/L (5-31); Blood Urea Nitrogen 15 mg/dL (9-16); Calcium 9.0 mg/dL (8.4-10.2); Carbon Dioxide 26 mmol/L (22-29); Chloride 105 mmol/L (96-108); Creatinine Clr Calc Pharmacy 75.4; Estimated Glomerular Filt Rate > 60; Potassium 3.7 mmol/L (3.3-5.1); Sodium 139 mmol/L (135-145); Total Protein 8.0 g/dL (6.5-8.0)
[2025-04-11 20:35] VITALS: BP 138/79; PULSE 59; TEMP 36.6; O2SAT 98
[2025-04-11 23:46] VITALS: BP 123/58; PULSE 59; TEMP 36.4; O2SAT 96
[2025-04-12] MEDS: iohexoL 350 MG/ML 100 ML INFUS..BTL 70 ML IV (03:07)
[2025-04-12 03:09] VITALS: BP 135/58; PULSE 60; TEMP 36.4; O2SAT 99
[2025-04-12 06:12] VITALS: BP 142/74; PULSE 62; TEMP 36.3; O2SAT 98
[2025-04-12 07:24] VITALS: BP 142/74; PULSE 62; RESP 16; TEMP 36.3; O2SAT 98
== END 2025-04-12 07:25 | disposition home or self-care (01) ==
PROVIDERS: Nurse Practitioner Family; Emergency Provider Emergency Medicine; PCP Internal Medicine
DX: G43.909 Migraine, unspecified, not intractable, without status migrainosus (principal); H92.02 Otalgia, left ear; R11.0 Nausea; Z79.899 Other long term (current) drug therapy
CPT/HCPCS: 36415; 70450; 70496; 70498; 80053; 81001; 85025; 85652; 86140; 96361; 96374; 96375; 99285; J1171; J1885; J2765; Q9967

== ENCOUNTER → 2025-04-11 18:54 | Outpatient (BNV) | payer OTHER, SELFPAY | PROVIDERS: Emergency Provider Emergency Medicine; PCP Internal Medicine; Visit Provider Radiology Neuroradiology | DX: R51.9 Headache, unspecified (principal); I10 Essential (primary) hypertension; H57.12 Ocular pain, left eye; H92.02 Otalgia, left ear | CPT/HCPCS: 70450 ==

== ENCOUNTER → 2025-04-12 | Outpatient (BNV) | payer OTHER, SELFPAY | PROVIDERS: Emergency Provider Emergency Medicine; PCP Internal Medicine; Visit Provider Radiology Diagnostic Radiology | DX: R51.9 Headache, unspecified (principal) | CPT/HCPCS: 70496; 70498 ==

== ENCOUNTER 2025-04-13 07:56 | Outpatient (REF) | payer OTHER, SELFPAY ==
--- NOTE | ~2025-04-13 | MM_ITS ---
EXAMINATION: MM SCREENING DIGITAL BREAST TOMOSYNTHESIS, BILATERAL CLINICAL INFORMATION: Screening. Asymptomatic. COMPARISON: Mammography: Comparison is made with available priors TECHNIQUE: Digital breast mammography with tomosynthesis is performed in both the craniocaudal and mediolateral oblique views along with computer-aided detection (CAD). FINDINGS: There are scattered areas of fibroglandular density (ACR BI-RADS breast composition Category b). There are no significant masses, abnormal calcifications, or other abnormalities. MM/MM tomosynthesis screening BI IMPRESSION: No mammographic evidence of malignancy. ASSESSMENT: BI-RADS BI-RADS 1 - Negative RECOMMENDATION: Routine annual mammography screening. 1 year F/U This examination should not preclude the clinical evaluation of a suspicious palpable abnormality. This patient's information was entered into a reminder system with a target due date for their next mammogram. Electronically signed by: Chasity Monterroso DO 04/26/2025 09:22 AM [facility]
--- OUTSIDE RECORDS SUMMARY | 2025-04-13 07:58 | XMS_ITS | Encounter Summary ---
Author Organization [employer] Address [address] [place] [address] [address] [place] [address] Care Team Providers Care Section Laborer Name Role Phone Choco Shaikh MD Primary Care Prov ider Reason for Visit * Reason Comments Med Refill Encounter Details Date Type Department Care Team ([facility] Contact Info) Description 07/20/2024 Refill [facility] [address] [place] [address] Choco Shaikh MD [address] [place] [address] Social History Tobacco Use Types Packs/Day Years [...] Info) Description 07/04/2025 1:00 PM EDT Telemedicine [facility] [address] [place] [address] Choco Shaikh MD [address] [place] [address] 07/21/2025 10:00 AM EDT Office Visit [facility] [address] [place], [place] [id number] Carmen Ott OD [address] [place] [address] documented as of this encounter Visit Diagnoses Not on filedocumented in this encounter Additional Health Concerns Assessment Noted Time PHQ-9 Depression Total Score: 0 01/22/20 24 10:22 AM EDT documented as of this encounter Care Teams Section Laborer Relationship Specialty Start Date End Date Choco Shaihk MD [address] [place] [address] PCP - General Internal Medicine 02/29/20 documented as of this encounter
--- OUTSIDE RECORDS SUMMARY | 2025-04-13 07:58 | XMS_ITS | Patient Health Record ---
Author Organization [employer] Address [address] [place] [address] Support Name Relationship Address Phone Perri Brewer Guarantor Unknown [phone] Reason For Referral No Information Medications Medication SIG (Take, Route, Frequency, Duration) Notes Start Date End Date Status Protonix 20 MG 1 tablet Orally Once a day Active Levothyroxine Sodium 300 MCG 1 tablet in the morning on an empty stomach Orally Once a day Active Lisinopril-hydroCHLOROthiazi de 20-25 MG 1 tablet Orally Once a day Active Social History Tobacco Use: Social History Observation Description Date Details (start date - stop date) Never Smoker NA - NA Tobacco Use/Smoking Question Answer Notes Are you a nonsmoker Alcohol Screen (Audit-C) Question Answer Notes Did you have a drink containing alcohol in the p ast year? No Points 0 Interpretation Negative Problems Problem Type SNOMED Code ICD Code Onset Dates Problem Status W/U Status Risk Notes Problem Hypothyroidism (82074638) Hypothyroidism, unspecified (E03.9) Active confirmed Problem Essential hypertension (19185432) Essential (primary) hypertension (I10) Active confirmed Problem Gastro-esophageal reflux disease without esophagitis (304043543) Gastro-esophagea l reflux disease without esophagitis (K21.9) Active confirmed Problem Body mass index (BMI) 40.0-44.9, adult (Z68.41) Active confirmed Plan Of Treatment No Information Insurance Providers Payer Name Payer Address Payer Phone Subscriber Number Group Number Insured Name Patient Relationship to Insured Coverage Start Date Coverage End Date [place] [employer] [address] [place] [address] [id number] Perri Brewer Self - patient is the insured Medical (General) History Medical History History ICD Code TIA Hypertension Hypothyroidism GERD Class III obesity
== END 2025-04-13 07:57 | disposition home or self-care (01) ==
LOC: HO.MAMMO 07:56
PROVIDERS: PCP Internal Medicine; Visit Provider Internal Medicine
DX: Z12.31 Encounter for screening mammogram for malignant neoplasm of breast (principal)
CPT/HCPCS: 77063; 77067

== ENCOUNTER → 2025-04-13 08:15 | Outpatient (BNV) | payer OTHER, SELFPAY | PROVIDERS: PCP Internal Medicine; Visit Provider Internal Medicine | DX: Z12.31 Encounter for screening mammogram for malignant neoplasm of breast (principal) | CPT/HCPCS: 77063; 77067 ==

== ENCOUNTER → 2025-05-03 16:03 | Outpatient (BNVA) | payer OTHER, SELFPAY | PROVIDERS: Visit Provider Internal Medicine Hypertension Specialist | DX: I10 Essential (primary) hypertension (principal) | CPT/HCPCS: 93786; 93788 ==

== ENCOUNTER 2025-05-03 16:09 | Outpatient (AMB) | payer OTHER, SELFPAY ==
[2025-05-03 16:07] VITALS: BP 132/88
--- NOTE | 2025-05-03 16:07 | HO.NEPHOV ---
Vital Signs 05/03/25 16:07 BP 132/88 Blood Pressure Location Lt brachial Position Sitting Intake Visit Reasons: F/U Sr. Director Required: No Accompanied by: Self / Same As Patient Allergies penicillin V Allergy (Unknown, Verified 05/03/25 16:08) shortness of breath tuberculin, purified protein deriva (TUBERCULIN,PURIF.PROT.DERIV.) Allergy (Unknown, Verified 05/03/25 16:08) RED, RASH TB Syringe 1 ML Allergy (Unknown, Uncoded 08/23/23 08:44) Unknown HPI Comments Details: 59-year-old woman with a history of hypertension diabetes mellitus and obesity referred for resistant hypertension. She is on 3 antihypertensive medications and blood pressure is still suboptimal. Recently Ozempic has been added she was lost few lb. She has a history of snoring. She wakes up about 4 times per night [facility] Medical History Anemia Hypertension Social History Patient Tobacco Use Status: Never used Tobacco Physical Exam Vital Signs: Last Vital Signs BP 132/88 05/03/25 16:07 Office Procedures 24 B/P Monitor Interpretation Details: Day time : 127/89 Nite time 119/85 24 HR; 124/87 Dipping + No white coat effect CPT: 68528 24 Hour Blood Pressure Monitor Reading Procedure code (CPT) selection complete Results Reviewed Nephrology Results: Hgb, (12.0-16.0) 14.4 g/dl 04/11/25 WBC, (4.8-10.8) 8.4 X10*3/uL 04/11/25 Plt Count, (160-400) 210 X10*3/uL 04/11/25 Sodium, (135-145) 139 mmol/L 04/11/25 Potassium, (3.3-5.1) 3.7 mmol/L 04/11/25 Chloride, (96-108) 105 mmol/L 04/11/25 Carbon Dioxide, (22-29) 26 mmol/L 04/11/25 BUN, (9-16) 15 mg/dL 04/11/25 Creatinine, (0.5-1.4) 0.87 mg/dL 04/11/25 Calcium, (8.4-10.2) 9.0 mg/dL 04/11/25 Urine Protein, (Neg-Trace) Trace mg/dL 04/11/25 Assessment & Plan Assessment & Plan (1) Hypertension: Code(s): I10 - Essential (primary) hypertension Category: Medical Plan 59-year-old year old woman with a history of hypertension diabetes mellitus and obesity referred for difficult to control hypertension. At present systolic blood pressure acceptable. The resistant hypertension may very well be due to obesity and from underlying sleep apnea. 24 hour ambulatory blood pressure monitoring -reveals well controlled BP Refer to sleep Medicine Services for polysomnography. Encouraged to stay on low-sodium diet Continue Ozempic and discussed importance of weight loss. No changes were made to her medications yet. No changes in meds Orders: Orders AMB 24 HR B/P Monitor INTERPRETATION Today I10 - Essential (primary) hypertension Referrals Sleep Medicine Referral I10 - Essential (primary) hypertension Coding Level of Care Code Est Pt Level 4 (94745) Diagnoses Hypertension I10 CPT Codes - CPT: 86900 24 Hour Blood Pressure Monitor Reading ([id number])
== END 2025-05-03 16:18 | disposition home or self-care (01) ==
LOC: HO.HKA 16:09
PROVIDERS: PCP Internal Medicine; Visit Provider Internal Medicine Hypertension Specialist
DX: I10 Essential (primary) hypertension (principal)
CPT/HCPCS: 93790; 99214